=== PATIENT | female | born 1950 | race Caucasian/White ===

== ENCOUNTER → 2016-12-19 | Outpatient (CLI) | payer MEDICARE, MEDICAID ==
[~2016-12-19] MED LIST: AC500T; ACET-819 PO; ACET650S15 PR; ACHD5005 PO; ALBU17AE3 IH; AMIT25TA9 PO; AMLO10TA PO; AMLO10TA2 PO; AMLO10TA82 PO; ASP81TEC PO; ATOR20TA66 PO; ATOR40TA PO; ATOR80TA PO; Amlodipine Besylate PO; CALC500T7 PO; CARV12.5 PO; CARV12.52 PO; CHLO25TA2 PO; CLN.1T PO; CLON-378 PO; CLON0.1T PO; CLON0.3T4 PO; CYCL10TA9; CYCL10TA9 PO; DCS100C PO; DESV50TA PO; DILT240C90 PO; DIPH25TA82 PO; DOXA8TAB73 PO; DULA1.5P2 SQ; DXZS4T PO; FAMO-106 PO; FAMO20TA13 PO; FRSM40T PO; FURO40TA4; FURO80TA3 PO; GEMF600T3 PO; GLUCOSAMIDE; HCT25T PO; HDRL25T PO; HUM100VI15; HYDR-3923 PO; HYDR-3924 PO; HYDR25TA4 PO; HYDR50TA3 PO; IBP800T; IBP800T PO; INSASP10V SC; INSASP10V SQ; INSU100I14 SQ; INSU100I16 SQ; INSU100I23 SQ; INSU100I32 SQ; INSU100V16 SC; INSU100V16 SQ; INSU100V5 SC; INSU100V5 SQ; INSULIN ISOPHANE; IPRA3AMP19 IH; ISM60TCR PO; KCL10CCR; KCL20TCR; LEVE1U SQ; LEVO25TA5 PO; LISI-552 PO; LISI10TA2 PO; LISI40TA PO; LORA0.5T PO; LORA1TAB PO; LSNP10T PO; LURA60TA2 PO; LURA80TA PO; LVF500T PO; LVT.025T PO; MAGN400T6 PO; MENT118G TP; METF-380 PO; METF-473 PO; METF500T8 PO; METO-272 PO; METO-352 PO; METO10TA3 PO; METO5TAB2 PO; MGX400T PO; MTC10T PO; MULT1CAP27 PO; Metoprolol Succinate PO; NAPR220T76 PO; NIAC250C2 PO; NIFE60TA74; NITR100C3 PO; OMEG-12 PO; ONDN4T PO; OSTEO BI-FLEX1 EACH PO; PANT20TA3 PO; PANT40TA PO; PANT40TA3 PO; PHENERGAN 25 MG/ML IM; PNT40TEC PO; POTA10CA43 PO; POTA10CA68 PO; POTA10TA10 PO; POTA10TA36 PO; POTA10TA86 PO; POTA20TA15 PO; PRAV40TA PO; RNT150T PO; ROSU5TAB PO; SCR1T1 PO; SIMV40TA4 PO; SPRN25T PO; SUCR1TAB PO; TORS20TA3 PO; TRAM100T2 PO; TRAM50TA2 PO; VITA1CAP59; VITA1TAB98 PO; [UNRECOGNIZED DRUG - CODE] PO; [UNRECOGNIZED DRUG - OTHER]; [UNRECOGNIZED DRUG - OTHER]
--- NOTE | 2016-12-20 14:20 | ECHOCARDIOGRAPHY REPORT ---
DATE OF SERVICE: 12/19/2016 ECHOCARDIOGRAM ORDERING PHYSICIAN: MARIANO Boucher PRIMARY PHYSICIAN: Dr. Walsh. OTHER PHYSICIAN: Dr. Mendez. CLINICAL DIAGNOSES: Coronary artery disease, hypertension, aortic stenosis. MEASUREMENTS: Aortic root 2.2. Left atrium 3.8. LV diameter diastolic 5.1. IVS thickness, diastolic 1.4. LVPW thickness, diastolic 1.3. DESCRIPTION: Two-dimensional echocardiography shows mild concentric left ventricular hypertrophy. Left ventricular ejection fraction appears to be normal. The study is technically difficult and is not suitable for wall motion analysis. Left ventricular ejection fraction is estimated to be 60% to 65%. There appears to be moderate mitral annular calcification. Mitral and tricuspid valve leaflets seem to have good leaflet excursion. Aortic valve leaflet structure is not very well visualized. Doppler imaging shows mild mitral and tricuspid regurgitation. Peak pressure gradient across the mitral valve is approximately 8 mmHg with a mean gradient of approximately 2 mmHg. There is moderate sclerosis and calcification of the aortic valve leaflets. Peak pressure gradient across the aortic valve is approximately 33 mmHg with a mean gradient of approximately 21 mmHg. Aortic valve area is calculated to be approximately 2 sq cm. Mitral valve area is calculated to be approximately 3 sq cm. Pulmonary artery systolic pressure is estimated at approximately 30 to 35 mmHg. CONCLUSIONS: 1. Normal global left ventricular systolic function with an ejection fraction approximately 60% to 65%. 2. Mild concentric left ventricular hypertrophy. 3. Mitral annular calcification without significant mitral stenosis. 4. Aortic valve sclerosis with mild aortic stenosis and a valve area of approximately 2 sq cm. 5. Mild mitral and tricuspid regurgitation. 6. Pulmonary artery systolic pressure is estimated to be 30 to 35 mmHg. Job ID: [id number] DocumentID: [id number] Dictated Date: 12/20/2016 11:25:13 Vacuum Closing Machine Operator Date: 12/20/2016 12:46:06 Dictated By: MARY ALICE MENDEZ MD, MA, FACP, FACC,
== END ==
LOC: CARD 14:48
PROVIDERS: ATTEND Nurse Practitioner Family
DX: I25.10 Atherosclerotic heart disease of native coronary artery without angina pectoris (principal); I65.23 Occlusion and stenosis of bilateral carotid arteries; I10 Essential (primary) hypertension; I35.0 Nonrheumatic aortic (valve) stenosis; I51.7 Cardiomegaly
CPT/HCPCS: 93306

== ENCOUNTER → 2017-01-15 | Outpatient (CLI) | payer MEDICARE, MEDICAID ==
--- NOTE | 2017-01-15 15:48 | Diagnostic Imaging Report ---
Bilateral renal ultrasound. INDICATION: Hypertension. Chronic renal disease and diabetes. FINDINGS: The right kidney is 10.3 cm and the left kidney is 13.1 cm in length. There is no hydronephrosis or focal lesion. Increased echogenicity of the renal cortex is seen with thinning particularly prominent in the right kidney. The urinary bladder is not seen, probably empty. IMPRESSION: No hydronephrosis. Dictated by: Dictated on workstation # [id number]
== END ==
LOC: RAD 13:53
PROVIDERS: ATTEND Internal Medicine Nephrology
DX: I12.9 Hypertensive chronic kidney disease with stage 1 through stage 4 chronic kidney disease, or unspecified chronic kidney disease (principal); N18.4 Chronic kidney disease, stage 4 (severe); E11.29 Type 2 diabetes mellitus with other diabetic kidney complication; D63.1 Anemia in chronic kidney disease
CPT/HCPCS: 76770

== ENCOUNTER 2017-02-03 07:37 | Inpatient (IN) | payer MEDICARE, MEDICAID ==
[~2017-02-03] VITALS: Ht 167.6 cm; Wt 112.3 kg
[2017-02-03] VITALS (18 sets, daily range): BP systolic 101–164; BP diastolic 56–102
[~2017-02-03 07:37] MED LIST changes: -METO-272 PO; +METO-370 PO
[2017-02-03] MEDS ORDERED: RT-ALBUTEROL/IPRATROPIUM 3 ML (DUONEB) VIAL INH ONE (07:45)
[2017-02-03 08:01] LABS: BASOPHILS # (AUTO) 0.1 10^3/uL (0.0-0.1); BASOPHILS % (AUTO) 1 % (0-10); EOSINOPHILS # (AUTO) 0.3 10^3/uL (0.0-0.3); EOSINOPHILS % (AUTO) 3 % (0-10); LYMPHOCYTES # (AUTO) 1.6 X 10^3 (1.0-4.0); LYMPHOCYTES % (AUTO) 16 % (12-44); MEAN CORPUSCULAR HEMOGLOBIN 27 PG (25-34); MEAN CORPUSCULAR HGB CONC 30 G/DL (32-36); MEAN CORPUSCULAR VOLUME 90 FL (80-99); MEAN PLATELET VOLUME 10.5 FL (7.4-10.4); MONOCYTES # (AUTO) 0.8 X 10^3 (0.0-1.0); MONOCYTES % (AUTO) 8 % (0-12); NEUTROPHILS # (AUTO) 7.4 X 10^3 (1.8-7.8); NEUTROPHILS % (AUTO) 73 % (42-75); PLATELET COUNT 292 10^3/uL (130-400); RED BLOOD COUNT 2.52 10^6/uL (4.35-5.85); RED CELL DISTRIBUTION WIDTH 14.6 % (10.0-14.5); WHITE BLOOD COUNT 10.2 10^3/uL (4.3-11.0)
[2017-02-03 08:21] LABS: ALANINE AMINOTRANSFERASE 20 U/L (0-55); ALBUMIN 3.2 GM/DL (3.2-4.5); ANION GAP 7 MMOL/L (5-14); ASPARTATE AMINO TRANSFERASE 16 U/L (5-34); BILIRUBIN,TOTAL 0.4 MG/DL (0.1-1.0); BLOOD UREA NITROGEN 49 MG/DL (7-18); BUN/CREATININE RATIO 13; CALCIUM 8.6 MG/DL (8.5-10.1); CARBON DIOXIDE 22 MMOL/L (21-32); CHLORIDE 111 MMOL/L (98-107); CREATININE SERUM 3.83 MG/DL (0.60-1.30); GFR ESTIMATED 12; MAGNESIUM 2.2 MG/DL (1.8-2.4); POTASSIUM 5.2 MMOL/L (3.6-5.0); SODIUM 140 MMOL/L (135-145); TOTAL PROTEIN 6.4 GM/DL (6.4-8.2); hs C REACTIVE PROTEIN 3.95 MG/DL (0.00-0.50)
[2017-02-03 08:26] LABS: GLUCOSE 58 MG/DL (70-105)
[2017-02-03 08:27] LABS: TROPONIN I < 0.30 NG/ML (<0.30)
--- NOTE | 2017-02-03 08:27 | Diagnostic Imaging Report ---
INDICATION: Shortness of breath. Comparison made with prior examination from 07/08/16. FINDINGS: There is cardiomegaly. There is some venous congestion. There is some discoid atelectasis and/or pneumonitis in the left lung base. There is no pneumothorax. The mediastinum is unremarkable. IMPRESSION: Left basilar discoid atelectasis and/or pneumonitis and a left pleural effusion. Cardiomegaly and some central pulmonary venous congestion. Dictated by: Dictated on workstation # [id number]
[2017-02-03] MEDS ORDERED: DEXTROSE 50% 50 ML (IMS) SYR IV ONE (08:30)
--- NOTE | 2017-02-03 08:43 | ED Respiratory ---
General Chief Complaint: Respiratory Problems Stated Complaint: SOA Nursing Triage Note: c/o soa. Pt apparently has had a significant weight gain since Saturday with increasing edema. Source: patient, EMS Exam Limitations: no limitations History of Present Illness Time seen by provider: 07:38 Initial Comments Here with report of daily weight gain and increasing shortness of breath. Apparently patient's oxygen saturation was decreased this morning at the [facility] despite O2. Patient was noted to have hemoglobin of 6.8 at the [facility]. Also with report of increased edema despite additional Lasix. Patient arrives on CPAP from EMS. History limited to [facility] and EMS report due to patient's medical condition and CPAP use. Timing/Duration: yesterday, getting worse Severity: moderate, severe Prior Episodes/Possible Cause: occasional episodes Modifying Factors: Improves With Oxygen Associated Symptoms: No chest pain/soreness, No cough, No fever/chills, shortness of breath, wheezing Allergies and Home Medications Allergies Coded Allergies: No Known Drug Allergies (Verified , 03/22/13) Home Medications Acetaminophen 500 Mg Tablet, 1,000 MG PO Q8H PRN for PAIN, (Reported) TAKES 2 (500MG) TABLETS NEEDED FOR PAIN Amlodipine Besylate 10 Mg Tablet, 10 MG PO DAILY, (Reported) Aspirin 81 Mg Tabec, 81 MG PO DAILY, (Reported) Calcium Carbonate 200 Mg Tab.chew, 200 MG PO Q8H PRN for INDIGESTION, (Reported) Clonidine HCl 0.1 Mg Tablet, 0.1 MG PO TID, #90 Ref 1 Prescribed by: AMY GARCIA on 06/29/16 1052 Desvenlafaxine Succinate 50 Mg Tab.sr.24h, 50 MG PO DAILY, (Reported) Diltiazem HCl 240 Mg Cap.er.24h, 240 MG PO DAILY, #30 Ref 1 Prescribed by: AMY GARCIA on 06/29/16 1052 Docusate Sodium 100 Mg Cap, 100 MG PO BID, (Reported) Doxazosin Mesylate 8 Mg Tablet, 8 MG PO Q12H, (Reported) 0600, 1800 Dulaglutide 1.5 Mg/0.5 Ml Pen.injctr, 1.5 MG SQ Mo, (Reported) Hydralazine HCl 50 Mg Tablet, 50 MG PO TID, (Reported) Hydrochlorothiazide 25 Mg Tablet, 25 MG PO DAILY, (Reported) Insulin Aspart 300 Units/3 Ml Solution, 15 UNITS SQ TIDAC, (Reported) Insulin Degludec 100 Unit/1 Ml Insuln.pen, 20 UNITS SQ HS, (Reported) Lisinopril 20 Mg Tablet, 20 MG PO DAILY, (Reported) Lorazepam 1 Mg Tablet, 1 MG PO Q6H PRN for ANXIETY, (Reported) Lurasidone HCl 60 Mg Tablet, 60 MG PO HS, (Reported) Magnesium Oxide 400 Mg Tablet, 400 MG PO BID, (Reported) Menthol 118 Ml Gel..ml., TP Q6H PRN for PAIN, (Reported) APPLY TO LOWER BACK Pantoprazole Sodium 20 Mg Tablet.dr, 20 MG PO DAILY, (Reported) Potassium Chloride 10 Meq Capsule.er, 20 MEQ PO BID, (Reported) TAKES 2 (10 MEQ) CAPSULES Torsemide 20 Mg Tablet, 40 MG PO DAILY, (Reported) TAKES 2 (20MG) TABLETS Constitutional: see HPI, No chills, No fever Respiratory: short of breath, wheezing Cardiovascular: No chest pain, edema Gastrointestinal: No nausea, No vomiting Genitourinary: no symptoms reported Other Unable to complete review of systems due to her underlying medical condition. Past Ghtrqdm-Nlnjzr-Dedfjc Hx Patient Social History Alcohol Use: Denies Use Recreational Drug Use: No Smoking Status: Unknown if Ever Smoked Type Used: Cigarettes Former Smoker/When Quit: Jun 03, 2010 Recent Foreign Travel: No Contact w/Someone Who Travel: No Recent Infectious Disease Expo: No Recent Hopitalizations: Yes (bladder tie up in 74 et 75, partial hyst in 75, breast et lymph nodes in 1) Immunizations Up To Date Tetanus Booster (TDap): Less than 5yrs Date of Pneumonia Vaccine: Apr 28, 2012 Date of Influenza Vaccine: Apr 28, 2016 Seasonal Allergies Seasonal Allergies: No Surgeries HX Surgeries: Yes (COLONOSCOPY,) Surgeries: Abdominal, Bladder Surgery, Breast, Cardiac, Gallbladder, Hysterectomy, Oophorectomy Respiratory Hx Respiratory Disorders: Yes Respiratory Disorders: Asthma Cardiovascular Hx Cardiac Disorders: Yes (CHF) Cardiac Disorders: Coronary Artery Disease, High Cholesterol, Hypertension, Syncope Neurological Hx Neurological Disorders: Yes (VASCULAR DEMENTIA) Neurological Disorders: Dementia, Neuropathy Reproductive System Hx Reproductive Disorders: No Sexually Transmitted Disease: Yes (Gonococcal infection hx) HIV/AIDS: No Female Reproductive Disorders: Denies Genitourinary Hx Genitourinary Disorders: Yes Genitourinary Disorders: Renal Failure, UTI-Chronic Gastrointestinal Hx Gastrointestinal Disorders: Yes (GASTROPARESIS) Gastrointestinal Disorders: Gastroesophageal Reflux, Diverticulosis, Polyps, Hiatal Hernia, Gall Bladder Disease Musculoskeletal Hx Musculoskeletal Disorders: Yes Musculoskeletal Disorders: Arthritis, Chronic Back Pain Endocrine Hx Endocrine Disorders: Yes Endocrine Disorders: Diabetes, Insulin dep, Hypothyroidsim, Pituitary Disease HEENT HX ENT Disorders: Yes (RETINAL DETATCHMENT, NO VISION RT EYE) Loss of Vision: Right Hearing Impairment: Denies Cancer Hx Cancer: Yes (RIGHT MASTECTOMY, BRAIN TUMOR REMOVED ) Cancer: Breast, Cervical, Uterine Psychosocial Hx Psychiatric Problems: Yes Behavioral Health Disorders: Eating Disorder, Anxiety, Depression Integumentary HX Skin/Integumentary Disorder: No Blood Transfusions Hx Blood Disorders: Yes (LEUKOCYTOSIS) Adverse Reaction to a Blood Tr: No Family Medical History Significant Family History: Heart Disease, Diabetes, Hypertension Family Medial History: Cancer 09 BROTHER, Onset:50's - 60 Family history: Asthma 03 FATHER, Onset:50's - 60 Family history: Diabetes mellitus 03 MOTHER, Onset:40's - 50 09 BROTHER, Onset:60 years & older 09 BROTHER, Onset:40's - 50 09 SISTER, Onset:50's - 60 09 SISTER, Onset:40's - 50 Family history: Hypertension 03 MOTHER, Onset:30's - 40 09 SISTER, Onset:40's - 50 09 SISTER, Onset:50's - 60 Heart disease 03 FATHER, Onset:60 years & older History of - respiratory disease 09 BROTHER, Onset:60 years & older Stroke 03 MOTHER, Onset:40's - 50 Physical Exam Vital Signs Vital Sign - Last 12Hours 02/03/17 02/03/17 07:54 08:02 Temp 96.8 Pulse 66 Resp 21 B/P (MAP) 155/80 Pulse Ox 97 O2 Flow Rate 40.00 Capillary Refill : Less Than 3 Seconds General Appearance: WD/WN, no apparent distress HEENT: PERRL/EOMI, normal ENT inspection Neck: full range of motion, supple Respiratory: decreased breath sounds, crackles, wheezing, expiration Cardiovascular: regular rate, rhythm, no murmur Gastrointestinal: non tender, soft Extremities: non-tender, normal inspection, pedal edema (3+ up to the level of the knee bilaterally.) Neurologic/Psychiatric: alert, oriented x 3 Skin: normal color, warm/dry Progress/Results/Core Measures Results/Orders Lab Results Laboratory Tests Test 02/03/17 07:50 02/03/17 08:40 Range/Units White Blood Count 10.2 4.3-11.0 10^3/uL Red Blood Count 2.52 L 4.35-5.85 10^6/uL Hemoglobin 6.7 *L 11.5-16.0 G/DL Hematocrit 23 L 35-52 % Mean Corpuscular Volume 90 80-99 FL Mean Corpuscular Hemoglobin 27 25-34 PG Mean Corpuscular Hemoglobin Concent 30 L 32-36 G/DL Red Cell Distribution Width 14.6 H 10.0-14.5 % Platelet Count 292 130-400 10^3/uL Mean Platelet Volume 10.5 H 7.4-10.4 FL Neutrophils (%) (Auto) 73 42-75 % Lymphocytes (%) (Auto) 16 12-44 % Monocytes (%) (Auto) 8 0-12 % Eosinophils (%) (Auto) 3 0-10 % Basophils (%) (Auto) 1 0-10 % Neutrophils # (Auto) 7.4 1.8-7.8 X 10^3 Lymphocytes # (Auto) 1.6 1.0-4.0 X 10^3 Monocytes # (Auto) 0.8 0.0-1.0 X 10^3 Eosinophils # (Auto) 0.3 0.0-0.3 10^3/uL Basophils # (Auto) 0.1 0.0-0.1 10^3/uL Sodium Level 140 135-145 MMOL/L Potassium Level 5.2 H 3.6-5.0 MMOL/L Chloride Level 111 H 98-107 MMOL/L Carbon Dioxide Level 22 21-32 MMOL/L Anion Gap 7 5-14 MMOL/L Blood Urea Nitrogen 49 H 7-18 MG/DL Creatinine 3.83 H 0.60-1.30 MG/DL Estimat Glomerular Filtration Rate 12 BUN/Creatinine Ratio 13 Glucose Level 58 *L 70-105 MG/DL Calcium Level 8.6 8.5-10.1 MG/DL Magnesium Level 2.2 1.8-2.4 MG/DL Total Bilirubin 0.4 0.1-1.0 MG/DL Aspartate Amino Transf (AST/SGOT) 16 5-34 U/L Alanine Aminotransferase (ALT/SGPT) 20 0-55 U/L Alkaline Phosphatase 75 40-136 U/L Troponin I < 0.30 <0.30 NG/ML C-Reactive Protein High Sensitivity 3.95 H 0.00-0.50 MG/DL B-Type Natriuretic Peptide 241.1 H <100.0 PG/ML Total Protein 6.4 6.4-8.2 GM/DL Albumin 3.2 3.2-4.5 GM/DL Urine Color YELLOW Urine Clarity CLEAR Urine pH 6 5-9 Urine Specific Platinum 1.010 L 1.016-1.022 Urine Protein 4+ NEGATIVE Urine Glucose (UA) NEGATIVE NEGATIVE Urine Ketones NEGATIVE NEGATIVE Urine Nitrite NEGATIVE NEGATIVE Urine Bilirubin NEGATIVE NEGATIVE Urine Urobilinogen NORMAL NORMAL MG/DL Urine Leukocyte Esterase NEGATIVE NEGATIVE Urine RBC (Auto) NEGATIVE NEGATIVE Urine RBC 0-2 /HPF Urine WBC 0-2 /HPF Urine Squamous Epithelial Cells NONE /HPF Urine Crystals NONE /LPF Urine Bacteria NEGATIVE /HPF Urine Casts NONE /LPF Urine Mucus NEGATIVE /LPF Urine Culture Indicated NO My Orders Orders - SADIE BARRAZA MD Albuterol/Ipra Inhalation Soln (Duoneb I (02/03/17 07:45) Chest 1 View, Ap/Pa Only (02/03/17 07:44) BNP (02/03/17 07:44) Cbc With Automated Diff (02/03/17 07:44) Comprehensive Metabolic Panel (02/03/17 07:44) Hs C Reactive Protein (02/03/17 07:44) Magnesium (02/03/17 07:44) Troponin I (02/03/17 07:44) Ua Culture If Indicated (02/03/17 07:44) Red Cells Leukocytes Reduced (02/03/17 07:44) Ekg Tracing (02/03/17 07:44) Catheter(Urinary) Insert & Ass 03,15 (02/03/17 07:44) O2 (02/03/17 07:44) Monitor-Rhythm Ecg Trace Only (02/03/17 07:44) Svn Sm Volume Nebulizer Rt-Rfs (02/03/17 07:44) Type And Screen (02/03/17 07:44) D50w (Emergency) Syringe (Dextrose 50% 5 (02/03/17 08:30) Medications Given in ED Current Medications Medications Dose Ordered Sig/Ida Route Start Time Stop Time Status Last Admin Dose Admin Albuterol/ Ipratropium 3 ml ONCE ONCE INH 02/03/17 07:45 02/03/17 07:50 DC 02/03/17 07:53 3 ML Dextrose 50 ml ONCE ONCE IV 02/03/17 08:30 02/03/17 08:31 DC 02/03/17 08:35 50 ML Vital Signs/I&O Vital Sign - Last 12Hours 02/03/17 02/03/17 07:54 08:02 Temp 96.8 Pulse 66 67 Resp 21 18 B/P (MAP) 155/80 Pulse Ox 97 O2 Flow Rate 40.00 Blood Pressure Mean: 105 Progress Note : Progress Note Seen and evaluated. IV initiated. Labs, chest x-ray and BiPAP initiated. DuoNeb done. Type and cross for 2 units due to report of low hemoglobin. Smith catheter placed due to immobility related to BiPAP and respiratory distress. Monitor patient. Responding well to BiPAP. Hemoglobin noted to be low. 1 unit of packed red cells initiated. Blood sugar 58. D50 1 amp IV given. 0955: I did discuss the case with Dr. Jordan. She accepts patient for admission, inpatient status. Patient is DO NOT RESUSCITATE. We will give Lasix 40 mg IV after 1 unit of packed red cells complete which will be finished in the ICU. ECG Initial ECG Impression Date: Feb 03, 2017 Initial ECG Impression Time: 07:56 Initial ECG Rate: 69 Initial ECG Rhythm: Normal Sinus Comment Sinus rhythm with first degree AV block. No evidence of ST elevation [place]. Similar to previous of 07/08/16. Interpreted by me. Diagnostic Imaging Diagonstic Imaging: Xray Plain Films/CT/US/NM/MRI: chest Comments VIA [facility], [facility]. [place], [place] NAME: KELLEY NASCIMENTO UGOBE REC#: [id number] PT STATUS: REG ER : 1950 PHYSICIAN: SADIE BARRAZA MD ADMIT DATE: 02/03/17/ER Draft Date of Exam:02/03/17 CHEST 1 VIEW, AP/PA ONLY INDICATION: Shortness of breath. Comparison made with prior examination from 07/08/16. FINDINGS: There is cardiomegaly. There is some venous congestion. There is some discoid atelectasis and/or pneumonitis in the left lung base. There is no pneumothorax. The mediastinum is unremarkable. IMPRESSION: Left basilar discoid atelectasis and/or pneumonitis and a left pleural effusion. Cardiomegaly and some central pulmonary venous congestion. Dictated on workstation # [id number] Dict: 02/03/1714 Trans: 02/03/17 0826 [facility] [id number] Interpreted by: KRYS RAMIREZ Electronically signed by: Reviewed: Reviewed by Me Departure Communication Time/Spoke to Admitting Phy: 09:55 Impression Impression: Primary Impression: Anemia Qualified Codes: D64.9 - Anemia, unspecified Additional Impressions: Acute on chronic renal failure Qualified Codes: N17.9 - Acute kidney failure, unspecified; N18.9 - Chronic kidney disease, unspecified Acute heart failure Qualified Codes: I50.9 - Heart failure, unspecified Respiratory failure, acute Qualified Codes: J96.01 - Acute respiratory failure with hypoxia Disposition: ADMITTED INPATIENT Condition: Stable Decision to Admit Reason: Admit from ER (General) Decision to Admit/Date: Feb 03, 2017 Time/Decision to Admit Time: 09:55 Departure-Patient Inst. Referrals: ERICA THAO MD (PCP/Family) Primary Care Physician SADIE BARRAZA MD Feb 03, 2017 08:43
[2017-02-03 08:47] LABS: BILIRUBIN,URINE NEGATIVE (NEGATIVE); KETONES,URINE NEGATIVE (NEGATIVE); LEUKOCYTE ESTERASE ,URINE NEGATIVE (NEGATIVE); NITRITE,URINE NEGATIVE (NEGATIVE); PH,URINE 6 (5-9); PROTEIN,URINE 4+ (NEGATIVE); UROBILINOGEN,URINE NORMAL (NORMAL)
[2017-02-03 09:03] LABS: WBC,URINE 0-2 /HPF
[2017-02-03] MEDS ORDERED: FUROSEMIDE 40 MG/4 ML INJ (LASIX) IV NR (10:45)
[2017-02-03] MEDS ORDERED: CATHETER FLUSH 10 ML SYR IV PRN (11:00)
[2017-02-03] MEDS ORDERED: RT-ALBUTEROL/IPRATROPIUM 3 ML (DUONEB) VIAL INH PRN (12:00)
[2017-02-03] MEDS: inSUlin (REGULAR) HUMAN 1 UNIT/0.01 ML (CHARGE PER UNIT) SC SCH ×3 (12:50→21:15)
[2017-02-03] MEDS: RT-ALBUTEROL/IPRATROPIUM 3 ML (DUONEB) VIAL INH SCH ×3 (13:55→22:56)
[2017-02-03] MEDS ORDERED: NON-FORMULARY MEDICATION 1 EA EA (Doxazosin Mesylate 8 MG) PO SCH (14:45)
[2017-02-03] MEDS ORDERED: CALCIUM CARBONATE 500 MG (TUMS) TAB.CHEW PO PRN (14:45)
[2017-02-03] MEDS ORDERED: LORazepam 1 MG (ATIVAN) TAB PO PRN (14:45)
[2017-02-03] MEDS ORDERED: LURA20TA PO (14:54)
[2017-02-03] MEDS ORDERED: RISP0.5T3 PO (14:54)
--- NOTE | 2017-02-03 15:08 | History & Physicial (CHS) ---
HPI History of Present Illness: 67 yo female with multiple comorbidities sent from long term with increasing oxygen requirement and shortness of breath. She also has history of vascular dementia, with unknown to me baseline functioning and no one else present at time of my exam. She does answer questions briefly but appropriately and is alert. She admits to shortness of breath, denies cough or chest pain. She denies diarrhea, constipation, abdominal pain or blood in stools. No fever reported by nursing facility. Source: patient Exam Limitations: clinical condition, other (reported history of dementia) Date seen by provider: Feb 03, 2017 Time Seen by Provider: 11:10 Attending Physician Estrella Jordan MD PCP Melvin Walsh MD Consult Date of Admission Feb 03, 2017 at 10:00 am Home Medications Home Medications Reviewed patient Home Medication Reconciliation Form Allergies Coded Allergies: No Known Drug Allergies (Verified , 03/22/13) [id number] Hx Patient Social History Alcohol Use: Denies Use Recreational Drug Use: No Smoking Status: Former Smoker Former smoker/When Quit: Jun 03, 2010 Type Used: Cigarettes Recent Foreign Travel: No Contact w/other who traveled: No Recent Hopitalizations: No Recent Infectious Disease Expo: No Physical Abuse Screen: Yes Sexual Abuse: No Immunizations Up To Date Tetanus Booster (TDap): Less than 5yrs Date of Pneumonia Vaccine: Apr 28, 2012 Date of Influenza Vaccine: Apr 28, 2016 Past Medical History Past Medical History 1. Chest pain with repeated admisisons- troponins negative 2. CAD 3. HTN 4. DMII 5. CRI stage IV 6. UTI 7.Hypothyroidism 8. Hypokalemia 9.History of hypotensive episodes with syncope 10. HLP 12. Peripheral Neuropathy 13.Obesity 14. 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 Breast cancer SP Rt. mastectomy 16. Hiatal hernia 17. OA 18. Asthma 19. Benign Brain Tumor 20. Chronic Leukocytosis- unknown cause, possibly related to vomiting 21. 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 Sigmoid diverticulosis 23. Dementia 24. Heart failure with preserved ejection fraction 25. Chronic anemia of chronic disease Surgical Hx 1. Rt. Mastectomy 1990 with right breast reconstruction 1993. 2. Lt. breast reduction 1993 3. Bladder surgery 1973 and 1974 4. Hysterectomy 1974 5. BSO -2008 6. Craniotomy 1999 and 2000 for benign tumor. 7. Laparoscopic Cholecystectomy - [place] 8. Colonoscopy 06-15-[address] Seay with polypectomy x3 9. EGD with Dr. Staley 2012 with mild gastritis Family Medical History Significant Family History: Heart Disease, Diabetes, Hypertension Review of Systems (CHC) Constitutional: No fever Respiratory: No cough, short of breath Cardiovascular: No chest pain Gastrointestinal: No abdominal pain, No constipation, No diarrhea, No melena, No nausea, No vomiting Musculoskeletal: joint pain Reviewed Test Results Reviewed Test Results Lab Laboratory Tests Test 02/03/17 07:50 02/03/17 08:40 Range/Units White Blood Count 10.2 4.3-11.0 10^3/uL Red Blood Count 2.52 L 4.35-5.85 10^6/uL Hemoglobin 6.7 *L 11.5-16.0 G/DL Hematocrit 23 L 35-52 % Mean Corpuscular Volume 90 80-99 FL Mean Corpuscular Hemoglobin 27 25-34 PG Mean Corpuscular Hemoglobin Concent 30 L 32-36 G/DL Red Cell Distribution Width 14.6 H 10.0-14.5 % Platelet Count 292 130-400 10^3/uL Mean Platelet Volume 10.5 H 7.4-10.4 FL Neutrophils (%) (Auto) 73 42-75 % Lymphocytes (%) (Auto) 16 12-44 % Monocytes (%) (Auto) 8 0-12 % Eosinophils (%) (Auto) 3 0-10 % Basophils (%) (Auto) 1 0-10 % Neutrophils # (Auto) 7.4 1.8-7.8 X 10^3 Lymphocytes # (Auto) 1.6 1.0-4.0 X 10^3 Monocytes # (Auto) 0.8 0.0-1.0 X 10^3 Eosinophils # (Auto) 0.3 0.0-0.3 10^3/uL Basophils # (Auto) 0.1 0.0-0.1 10^3/uL Sodium Level 140 135-145 MMOL/L Potassium Level 5.2 H 3.6-5.0 MMOL/L Chloride Level 111 H 98-107 MMOL/L Carbon Dioxide Level 22 21-32 MMOL/L Anion Gap 7 5-14 MMOL/L Blood Urea Nitrogen 49 H 7-18 MG/DL Creatinine 3.83 H 0.60-1.30 MG/DL Estimat Glomerular Filtration Rate 12 BUN/Creatinine Ratio 13 Glucose Level 58 *L 70-105 MG/DL Calcium Level 8.6 8.5-10.1 MG/DL Magnesium Level 2.2 1.8-2.4 MG/DL Total Bilirubin 0.4 0.1-1.0 MG/DL Aspartate Amino Transf (AST/SGOT) 16 5-34 U/L Alanine Aminotransferase (ALT/SGPT) 20 0-55 U/L Alkaline Phosphatase 75 40-136 U/L Troponin I < 0.30 <0.30 NG/ML C-Reactive Protein High Sensitivity 3.95 H 0.00-0.50 MG/DL B-Type Natriuretic Peptide 241.1 H <100.0 PG/ML Total Protein 6.4 6.4-8.2 GM/DL Albumin 3.2 3.2-4.5 GM/DL Urine Color YELLOW Urine Clarity CLEAR Urine pH 6 5-9 Urine Specific [place] 1.010 L 1.016-1.022 Urine Protein 4+ NEGATIVE Urine Glucose (UA) NEGATIVE NEGATIVE Urine Ketones NEGATIVE NEGATIVE Urine Nitrite NEGATIVE NEGATIVE Urine Bilirubin NEGATIVE NEGATIVE Urine Urobilinogen NORMAL NORMAL MG/DL Urine Leukocyte Esterase NEGATIVE NEGATIVE Urine RBC (Auto) NEGATIVE NEGATIVE Urine RBC 0-2 /HPF Urine WBC 0-2 /HPF Urine Squamous Epithelial Cells NONE /HPF Urine Crystals NONE /LPF Urine Bacteria NEGATIVE /HPF Urine Casts NONE /LPF Urine Mucus NEGATIVE /LPF Urine Culture Indicated NO Radiology CXR 02/03/17: IMPRESSION: Left basilar discoid atelectasis and/or pneumonitis and a left pleural effusion. Cardiomegaly and some central pulmonary venous congestion. Physical Exam-(CHC) Physical Exam Vital Signs VS - Last 72 Hours, by Label 02/03/17 02/03/17 02/03/17 02/03/17 07:54 08:02 08:02 10:37 Temp 96.8 Pulse 66 67 66 Resp 21 18 19 B/P (MAP) 155/80 Pulse Ox 97 96 O2 Delivery NIV Bilevel O2 Flow Rate 40.00 40.00 02/03/17 02/03/17 02/03/17 02/03/17 10:45 11:00 11:15 11:40 Temp 97.5 Pulse 67 60 Resp 15 12 B/P (MAP) 126/59 126/59 Pulse Ox 99 98 98 O2 Delivery NIV Bilevel NIV Bilevel NIV Bilevel O2 Flow Rate 30.00 FiO2 40 30 02/03/17 02/03/17 02/03/17 02/03/17 12:00 12:48 12:59 13:55 Pulse 60 62 59 Resp 13 20 20 B/P (MAP) 130/63 Pulse Ox 99 99 97 O2 Delivery NIV Bilevel NIV Bilevel O2 Flow Rate 30.00 30.00 30.00 30.00 Capillary Refill : Less Than 3 Seconds General Appearance: moderate distress Respiratory: accessory muscle use, rhonchi, No wheezing Cardiovascular: regular rate, rhythm Gastrointestinal: normal bowel sounds, non tender, soft Neurologic/Psychiatric: alert Skin: normal color, warm/dry Assessment/Plan Assessment/Plan Admission Dx Acute on chronic anemia of chronic disease Acute on chronic renal insufficiency Acute on chronic diastolic congestive heart failure with preserved ejection fraction HTN DMII HLD Dementia with behavioral disturbance Plan Acute on chronic anemia of chronic disease -Hgb 6.7 on admission, has been trending down possibly due to worsening renal function, normocytic anemia suggestive of anemia of chronic disease with recent downward trend -Transfuse 1 unit PRBC and recheck, check hemoccult Acute on chronic renal insufficiency -Unclear etiology for acute worsening, possibly due to poor effective volume circulating given anemia noted above and fluid overload suggested as noted below -Monitor closely Acute on chronic diastolic congestive heart failure with preserved ejection fraction -Likely exacerbated by anemia, has had recent weight gain at [place] of 12-13 lbs in a week, did not improve with an extra dose of torsemide Saturday, requiring Bipap with 40% FiO2 on admission, weaned down to room air on bipap, will trial nasal cannula -IV lasix 40 mg after blood, will likely need continued diuresis, but will be difficult to balance with her renal function and poor effective circulating volume HTN -Resistant to multiple medications- on high dose doxazosin, clonidine, hydrochlorothiazide, amlodipine, cardizem and lisinopril at home -Hold lisinopril with acute worsening of renal function, monitor BP closely with restart of home meds DMII -Currently with hypoglycemia, start diabetic diet, hold home insulin and dulaglutide Dementia with behavioral disturbance -On multiple behavioral meds- resume home meds and monitor closely DVT ppx Hold pharmacologic ppx for now given marked anemia with concern for acute blood loss, if hemoccult negative, start enoxaparin Disposition Critically ill with multiple systems failure, will be difficult to balance renal function with fluid overload/hypoxia and CHF exacerbation. Patient is DNR. Diagnosis/Problems: Clinical Quality Measures DVT/VTE Risk/Contraindication: Risk Factor Score Per Nursin RFS Level Per Nursing on Admit: 4+=Very High Copy Copies To 1: SANJEEV Olmos BETHANY N MD Feb 03, 2017 3:08 pm
[2017-02-03] MEDS: doxAzosin 4 MG (CARDURA) TAB PO SCH ×2 (16:48→22:06)
[2017-02-03 18:37] LABS: MEAN PLATELET VOLUME 10.2 FL (7.4-10.4); RED BLOOD COUNT 2.64 10^6/uL (4.35-5.85); RED CELL DISTRIBUTION WIDTH 14.4 % (10.0-14.5); WHITE BLOOD COUNT 9.3 10^3/uL (4.3-11.0)
[2017-02-03] MEDS: NS IV 1000 ML 1,000 ML IV SCH (18:39)
[2017-02-03 18:49] LABS: CALCIUM 8.4 MG/DL (8.5-10.1); CREATININE SERUM 3.86 MG/DL (0.60-1.30)
[2017-02-03] MEDS ORDERED: SODI650T PO (18:59)
[2017-02-03] MEDS ORDERED: INSU100I14 SQ (18:59)
[2017-02-03] MEDS ORDERED: METO100T6 PO (18:59)
[2017-02-03] MEDS ORDERED: NON-FORMULARY MEDICATION 1 EA EA (Hydralazine HCl 50 MG) PO SCH (21:00)
[2017-02-03] MEDS ORDERED: NON-FORMULARY MEDICATION 1 EA EA (Risperidone 0.5 MG) PO SCH (21:00)
[2017-02-03] MEDS ORDERED: NON-FORMULARY MEDICATION 1 EA EA (Lurasidone HCl (Latuda) 20 MG) PO SCH (21:00)
[2017-02-03] MEDS: MAGNESIUM OXIDE (MAG-OX)400 MG TAB PO SCH (21:11)
[2017-02-03] MEDS: hydrALAZINE (APRESOLINE) 25 MG TAB PO SCH (21:11)
[2017-02-03] MEDS: DOCUSATE SODIUM 100 MG (COLACE) CAP PO SCH (21:11)
[2017-02-03] MEDS: cloNIDine 0.1 MG (CATAPRES) TAB PO SCH (21:12)
[2017-02-03] MEDS: risperiDONE 0.25 MG (RisperDAL) TAB PO SCH (21:12)
[2017-02-03] MEDS ORDERED: ACETAMINOPHEN 325 MG TABLET/CAPLET (TYLENOL) PO PRN (21:30)
[2017-02-04] VITALS (22 sets, daily range): BP systolic 127–170; BP diastolic 55–75
[2017-02-04] MEDS: RT-ALBUTEROL/IPRATROPIUM 3 ML (DUONEB) VIAL INH SCH ×5 (02:08→18:38)
[2017-02-04 03:54] LABS: BASOPHILS # (AUTO) 0.1 10^3/uL (0.0-0.1); BASOPHILS % (AUTO) 1 % (0-10); EOSINOPHILS # (AUTO) 0.3 10^3/uL (0.0-0.3); EOSINOPHILS % (AUTO) 4 % (0-10); LYMPHOCYTES # (AUTO) 1.6 X 10^3 (1.0-4.0); LYMPHOCYTES % (AUTO) 20 % (12-44); MEAN CORPUSCULAR HGB CONC 31 G/DL (32-36); MEAN CORPUSCULAR VOLUME 90 FL (80-99); MEAN PLATELET VOLUME 10.4 FL (7.4-10.4); MONOCYTES # (AUTO) 0.8 X 10^3 (0.0-1.0); MONOCYTES % (AUTO) 9 % (0-12); NEUTROPHILS # (AUTO) 5.5 X 10^3 (1.8-7.8); NEUTROPHILS % (AUTO) 66 % (42-75); PLATELET COUNT 250 10^3/uL (130-400); RED BLOOD COUNT 2.52 10^6/uL (4.35-5.85); RED CELL DISTRIBUTION WIDTH 14.4 % (10.0-14.5); WHITE BLOOD COUNT 8.2 10^3/uL (4.3-11.0)
[2017-02-04 04:11] LABS: MEAN CORPUSCULAR HEMOGLOBIN 28 PG (25-34)
[2017-02-04 04:35] LABS: BILIRUBIN,TOTAL 0.4 MG/DL (0.1-1.0); CALCIUM 8.4 MG/DL (8.5-10.1); CREATININE SERUM 3.88 MG/DL (0.60-1.30); POTASSIUM 4.5 MMOL/L (3.6-5.0); TOTAL PROTEIN 5.9 GM/DL (6.4-8.2)
[2017-02-04 04:51] LABS: MAGNESIUM 2.1 MG/DL (1.8-2.4); PHOSPHORUS 5.4 MG/DL (2.3-4.7)
[2017-02-04] MEDS: inSUlin (REGULAR) HUMAN 1 UNIT/0.01 ML (CHARGE PER UNIT) SC SCH ×3 (06:00→17:35)
[2017-02-04] MEDS ORDERED: VENlafaxine XR 75 MG (EFFEXOR XR) CAP PO SCH (07:00)
[2017-02-04] MEDS: hydrALAZINE (APRESOLINE) 25 MG TAB PO SCH ×2 (07:58→13:18)
[2017-02-04] MEDS: MAGNESIUM OXIDE (MAG-OX)400 MG TAB PO SCH (07:59)
[2017-02-04] MEDS: risperiDONE 0.25 MG (RisperDAL) TAB PO SCH (07:59)
[2017-02-04] MEDS: DOCUSATE SODIUM 100 MG (COLACE) CAP PO SCH (07:59)
[2017-02-04] MEDS: cloNIDine 0.1 MG (CATAPRES) TAB PO SCH ×2 (07:59→13:18)
[2017-02-04] MEDS: doxAzosin 4 MG (CARDURA) TAB PO SCH (08:00)
[2017-02-04] MEDS ORDERED: ASPIRIN E.C. 81 MG (ECOTRIN) TAB PO SCH (09:00)
[2017-02-04] MEDS ORDERED: FUROSEMIDE 40 MG/4 ML INJ (LASIX) IVP SCH (09:00)
[2017-02-04] MEDS ORDERED: HYDROCHLOROTHIAZIDE 25 MG (HCTZ) TAB PO SCH (09:00)
[2017-02-04] MEDS ORDERED: DILTIAZEM 240 MG (CARDIZEM CD) CAP PO SCH (09:00)
[2017-02-04] MEDS ORDERED: amLODIPine 10 MG (NORVASC) TAB PO SCH (09:00)
[2017-02-04] MEDS ORDERED: DESVENLAFAXINE SUCC 50 MG (PRISTIQ) TAB NON-FORMULARY PO SCH (09:00)
--- NOTE | 2017-02-04 09:13 | Diagnostic Imaging Report ---
INDICATION: Shortness of breath. EXAMINATION: Portable chest at 6:05 AM. FINDINGS: The heart size and pulmonary vascularity are normal. The lungs are clear. There are no effusions or pneumothoraces. IMPRESSION: Negative chest. Dictated by: Dictated on workstation # [id number]
[2017-02-04] MEDS: NS IV 1000 ML 1,000 ML IV SCH (11:08)
[2017-02-04] MEDS ORDERED: ACET-93 PO (11:30)
[2017-02-04] MEDS ORDERED: RISP1TAB3 PO (11:30)
[2017-02-04] MEDS ORDERED: DESV50TA18 PO (11:30)
[2017-02-04] MEDS ORDERED: MAGN500T PO (11:30)
[2017-02-04] MEDS ORDERED: METO-395 PO (11:30)
[2017-02-04] MEDS ORDERED: DILT240C PO (11:30)
[2017-02-04] MEDS ORDERED: MAGN400O7 PO (11:30)
--- NOTE | 2017-02-04 16:12 | Discharge Inst-Skilled Nursing ---
Discharge Inst-Skilled NF Patient Instructions Patient Problems: ACUTE ON CHRONIC SYSTOLIC HEART FAILURE EXACERBATION ACUTE ON CHRONIC RENAL FAILURE CHRONIC ANEMIA SECONDARY TO END STAGE RENAL FAILURE VASCULAR DEMENTIA Goal: PALLIATIVE CARE Patient Instructions: A HOSPICE QUALITY IMPROVEMENT MANAGER WILL CONTACT YOU TO ARRANGE A TIME TO MEET YOUR FAMILY. I HAVE NOT MADE ANY CHANGES TO YOUR MEDICATIONS DUE TO YOUR HIGH BLOOD PRESSURE. YOU MAY DECIDE TO CHANGE OR STOP SOME OF THEM WITH THE HOSPICE NURSE. Consult/Follow Up/Orders Follow up appt.: RAUDEL WILL VISIT YOU THIS WEEK. Skilled NF Admit to: [facility] I certify that SNF services are required to be given on an inpatient basis because of the above named patient's need for [facility] care on a continuing basis for the conditions(s) for which he/she was receiving inpatient hospital services prior to his/her transfer to the SNF. Group Home Facility Order: Nursing Services Discharge Diet: No Restrictions Daily Activity as Tolerated: Yes Discharge Medications New, Converted or Re-Newed RX: Other Continued Medications: Acetaminophen (Tylenol Extra Strength Arthrit) 500 Mg Tablet 1000 MG PO Q8H PRN for PAIN-MODERATE TAKES 2 (500MG) TABLETS NEEDED FOR PAIN Acetaminophen (Acetaminophen) 500 Mg Tablet 500 MG PO Q8H PRN for PAIN-MILD, TAB Amlodipine Besylate (Amlodipine Besylate) 10 Mg Tablet 10 MG PO DAILY Aspirin (Aspirin Ec 81 Mg) 81 Mg Tabec 81 MG PO DAILY Calcium Carbonate (Tums) 200 Mg Tab.chew 200 MG PO Q8H PRN for INDIGESTION Desvenlafaxine Succinate (Desvenlafaxine Succinate ER) 50 Mg Tab.er.24h 50 MG PO Q48H Diltiazem HCl (Diltiazem 24Hr ER) 240 Mg Cap.er.24h 240 MG PO DAILY Docusate Sodium (Colace) 100 Mg Cap 100 MG PO BID Doxazosin Mesylate (Doxazosin Mesylate) 8 Mg Tablet 8 MG PO 0600,1800 Dulaglutide (Trulicity) 1.5 Mg/0.5 Ml Pen.injctr 1.5 MG SQ Mo Hydralazine HCl (Hydralazine HCl) 50 Mg Tablet 50 MG PO TID Insulin Aspart (Novolog Flexpen) 300 Units/3 Ml Solution 25 UNITS SQ TIDAC Insulin Aspart (Novolog Flexpen) 300 Units/3 Ml Solution SQ SLIDING/SCALE, EA Sliding scale: Calculate blood glucose for amount to be given prior to breakfast and supper in addition to scheduled dose. Blood glucose minus 150 divided by 15 equals number of units to give. 150-165 1 unit 166-180 2 units 181-195 3 units Insulin Degludec (Tresiba Flextouch U-100) 100 Unit/1 Ml Insuln.pen 35 UNITS SQ HS Lorazepam (Lorazepam) 1 Mg Tablet 1 MG PO Q6H PRN for ANXIETY Magnesium Hydroxide (Milk of Magnesia) 400 Mg/5 Ml Oral.susp 30 ML PO DAILY PRN for CONSTIPATION-7TH LINE, ML Magnesium Oxide (Magnesium Oxide) 500 Mg Tablet 500 MG PO BID, TAB Metoprolol Succinate (Metoprolol Succinate) 100 Mg Tab.er.24h 100 MG PO DAILY Potassium Chloride (Klor-Con Sprinkle) 10 Meq Capsule.er 20 MEQ PO BID TAKES 2 (10 MEQ) CAPSULES Risperidone (Risperidone) 1 Mg Tablet 0.5 MG PO BID TAKES 1/2 OF A (1 MG) TABLET Sodium Bicarbonate (Sodium Bicarbonate) 650 Mg Tablet 1300 MG PO BID, TAB Torsemide (Torsemide) 20 Mg Tablet 20 MG PO DAILY Amy Best Feb 04, 2017 16:08 Copy Copies To 1: AMY ASH APRN, MD Feb 04, 2017 4:12 pm
--- NOTE | 2017-02-04 16:13 | Discharge Summary ---
Diagnosis/Chief Complaint Date of Admission Feb 03, 2017 at 10:00 am Date of Discharge January Admission Diagnosis Admission Diagnosis Acute on chronic anemia of chronic disease Acute on chronic renal insufficiency Acute on chronic diastolic congestive heart failure with preserved ejection fraction HTN DMII HLD Dementia with behavioral disturbance Discharge Diagnosis Acute on chronic anemia of chronic disease -Hgb 6.7 on admission, has been trending down possibly due to worsening renal function, normocytic anemia suggestive of anemia of chronic disease with recent downward trend -Transfuse 1 unit PRBC and recheck, check hemoccult Acute on chronic renal insufficiency -Unclear etiology for acute worsening, possibly due to poor effective volume circulating given anemia noted above and fluid overload suggested as noted below -Monitor closely Acute on chronic diastolic congestive heart failure with preserved ejection fraction -Likely exacerbated by anemia, has had recent weight gain at [place] of 12-13 lbs in a week, did not improve with an extra dose of torsemide Saturday, requiring Bipap with 40% FiO2 on admission, weaned down to room air on bipap, will trial nasal cannula -IV lasix 40 mg after blood, will likely need continued diuresis, but will be difficult to balance with her renal function and poor effective circulating volume HTN -Resistant to multiple medications- on high dose doxazosin, clonidine, hydrochlorothiazide, amlodipine, cardizem and lisinopril at home -Hold lisinopril with acute worsening of renal function, monitor BP closely with restart of home meds DMII -Currently with hypoglycemia, start diabetic diet, hold home insulin and dulaglutide Dementia with behavioral disturbance -On multiple behavioral meds- resume home meds and monitor closely On day of discharge, I spoke with patient's sons and siblings. Discussed with them her dire condition and the difficulty of fluid balance given her anemia, CKD, and CHF. Decision was made for her to go back to the retirement with hospice. The family chose [facility] for her care. I sought and answered all questions related to laverne situation. Ivelisse was not part of the discussion as she was not able to fully comprehend what we were saying. Chief Complaint/HPI Chief Complaint/HPI 67 yo female with multiple comorbidities sent from retirement with increasing oxygen requirement and shortness of breath. She also has history of vascular dementia, with unknown to me baseline functioning and no one else present at time of my exam. She does answer questions briefly but appropriately and is alert. She admits to shortness of breath, denies cough or chest pain. She denies diarrhea, constipation, abdominal pain or blood in stools. No fever reported by nursing facility. Discharge Summary-Simple/Stand Consultations Discharge Physical Examination Allergies: Coded Allergies: No Known Drug Allergies (Verified , 03/22/13) Vitals & I&Os Vital Sign - Last 12Hours Date Time Temp Pulse Resp B/P (MAP) Pulse Ox O2 Delivery O2 Flow Rate FiO2 02/04/17 14:46 98 Nasal Cannula 3.00 02/04/17 13:00 62 02/04/17 06:37 15 02/04/17 06:00 170/74 02/04/17 04:00 99.2 02/04/17 04:00 30 Intake and Output 02/04/17 00:00 Intake Total 900 ml Output Total 2175 ml Balance -1275 ml Hospital Course See final discharge diagnosis. Radiology Reviewed CXR 02/03/17: IMPRESSION: Left basilar discoid atelectasis and/or pneumonitis and a left pleural effusion. Cardiomegaly and some central pulmonary venous congestion. Discharge Instructions to patient/family Please see electonic discharge instructions given to patient. Discharge Medications Reviewed and agree with Discharge Medication list on patient's Discharge Instruction sheet Clinical Quality Measures DVT/VTE Risk/Contraindication: Risk Factor Score Per Nursin RFS Level Per Nursing on Admit: 4+=Very High Copy Copies To 1: AMY ASH APRN, MD Feb 04, 2017 16:13
--- OUTSIDE RECORDS SUMMARY | 2017-02-05 10:50 | XMS REPORT ---
Author ERICA Villatoro [facility] eClinicalWorks Address Unknown Phone Unavailable Care Team Providers Care Warehouse Distribution Associate Name Role Phone ERICA THAO CP Unavailable Allergies No Known Allergies Problems Problem Type Condition ICD-9 Code Onset Dates Condition Status Problem Other chronic pain 338.29 Active Problem Other specified disease of nail 703.8 Active Problem Equinus deformity of foot, acquired 736.72 Active Problem Unspecified hereditary and idiopathic peripheral neuropathy 356.9 Active Problem Coronary atherosclerosis of unspecified type of vessel, [place] or graft 414.00 Active Problem Dermatophytosis of nail 110.1 Active Problem Congestive heart failure, unspecified 428.0 Active Problem Diabetes with renal manifestations, type II or unspecified type, not stated as uncontrolled 250.40 Active Problem Ingrowing nail 703.0 Active Problem Vascular dementia, uncomplicated 290.40 Active Problem Unspecified hypothyroidism 244.9 Active Problem Loss of weight 783.21 Active Problem Persistent vomiting 536.2 Active Problem Abdominal pain, left lower quadrant 789.04 Active Problem Other nonspecific findings on examination of blood 790.99 Active Problem Diabetes 250.00 Active Problem Diabetes mellitus without mention of complication, type II or unspecified type, uncontrolled 250.02 Active Problem Edema 782.3 Active Problem Family history, Colonic polyps V18.51 Active Problem Obsessive-compulsive disorders 300.3 Active Problem Chest pain, unspecified 786.50 Active Problem Personal history of malignant neoplasm of breast V10.3 Active Problem Major depressive disorder, single episode, severe, specified as with psychotic behavior 296.24 Active Problem Chronic kidney disease, Stage III (moderate) 585.3 Active Problem PPV23 (PNEUMOVAX) DX V03.82 Active Problem Acute bronchitis 466.0 Active Problem Dementia in conditions classified elsewhere with behavioral disturbance 294.11 Active Problem Essential hypertension, malignant 401.0 Active Problem Nausea with vomiting 787.01 Active Medications Medication Code System Code Instructions Start Date End Date Status Dosage tramadol NDC 0 50 mg October 16, 2014 1 Tablet by Oral route 1 time per day qHS, for chronic pain TraMADol HCl ER NDC [address]-98 100 MG Orally Once a day PT [facility] Apr 01, 2015 1 tablet Results No Known Results Summary Purpose eClinicalWorks Submission
--- OUTSIDE RECORDS SUMMARY | 2017-02-05 10:50 | XMS REPORT ---
Author Author RAUDEL STAPLES [facility] eClinicalWorks Address Unknown Phone Unavailable Care Team Providers Care Component Prep Operator Name Role Phone RAUDEL STAPLES CP Unavailable Allergies No Known Allergies Problems Problem Type Condition Code Onset Dates Condition Status Problem Other chronic pain 338.29 Active Problem Other specified disease of nail 703.8 Active Problem Equinus deformity of foot, acquired 736.72 Active Problem Unspecified hereditary and idiopathic peripheral neuropathy 356.9 Active Problem Coronary atherosclerosis of unspecified type of vessel, [place] or graft 414.00 Active Problem Dermatophytosis of [...] Status Dosage tramadol NDC 0 50 mg PT [facility] October 16, 2014 1 Tablet by Oral route 1 time per day qHS, for chronic pain Results No Known Results Summary Purpose eClinicalWorks Submission
--- OUTSIDE RECORDS SUMMARY | 2017-02-05 10:50 | XMS REPORT ---
Author Author RAUDEL STAPLES [facility] eClinicalWorks Address Unknown Phone Unavailable Care Team Providers Care Corporate Licensed Broker Name Role Phone RAUDEL STAPLES CP Unavailable Allergies No Known Allergies Problems Problem Type Condition Code Onset Dates Condition Status Problem Vitamin deficiency E56.9 Active Problem Low back pain, unspecified back pain laterality, unspecified chronicity, with sciatica presence unspecified M54.5 Active Problem Constipation, unspecified constipation type K59.00 Active Problem Obsessive compulsive disorder F42 Active Problem Essential hypertension I10 Active Problem Chronic congestive heart failure, unspecified congestive heart failure type I50.9 Active Problem Peripheral polyneuropathy G62.9 Active Problem Generalized edema R60.1 Active Problem Mild episode of recurrent major depressive disorder F33.0 Active Problem Chronic kidney disease, unspecified stage N18.9 Active Problem Type 2 diabetes mellitus with complication E11.8 Active Problem Vascular dementia without behavioral disturbance F01.50 Active Problem Other chronic pain G89.29 Active Problem Mild acid reflux K21.9 Active Problem Shortness of breath R06.02 Active Problem Chronic kidney disease, stage 3 (moderate) N18.3 Active Problem Severe pain R52 Active Problem Mild pain R52 Active Problem Nausea and vomiting, unspecified intactability, vomiting of unspecified type R11.2 Active Medications Medication Code System Code Instructions Start Date End Date Status Dosage Scopolamine [facility] [address]-28 1 MG/3DAYS Transdermal every 3 days Apr 20, 2016 Jun 30, 2016 1 patch to skin Results No Known Results Summary Purpose eClinicalWorks Submission
--- OUTSIDE RECORDS SUMMARY | 2017-02-05 10:51 | XMS REPORT ---
Author Author RAUDEL STAPLES [facility] eClinicalWorks Address Unknown Phone Unavailable Care Team Providers Care Supervisory Lifeguard Name Role Phone RAUDEL STAPLES CP Unavailable Allergies No Known Allergies Problems Problem Type Condition Code Onset Dates Condition Status Problem Other chronic pain 338.29 Active Problem Other specified disease of nail 703.8 Active Problem Equinus deformity of foot, acquired 736.72 Active Problem Unspecified hereditary and idiopathic peripheral neuropathy 356.9 Active Problem Coronary atherosclerosis of unspecified type of vessel, [place] or graft 414.00 Active Problem Dermatophytosis of [...] Instructions Start Date End Date Status Dosage Morphine Sulfate [facility] [address]-97 15 MG Orally PT [facility] every 6 hrs Jul 07, 2015 1/2 tablet Results No Known Results Summary Purpose eClinicalWorks Submission
--- OUTSIDE RECORDS SUMMARY | 2017-02-05 10:51 | XMS REPORT ---
Author Author MERARI STAPLES Organization eClinicalWorks Address Unknown Phone Unavailable Care Team Providers Care Jute Bag Sewer Name Role Phone MERARI STAPLES CP Unavailable Allergies No Known Allergies [...] Date End Date Status Dosage Morphine Sulfate [facility] [address]-82 15 MG Orally ([facility]) every [address] Walsh to sign for Merari Jul 07, 2015 Apr 13, 2016 0.5 tablet as needed Results No Known Results Summary Purpose eClinicalWorks Submission
--- OUTSIDE RECORDS SUMMARY | 2017-02-05 10:52 | XMS REPORT ---
Author Author RAUDEL STAPLES Organization e[employer] Address Unknown Phone Unavailable Care Team Providers Care Watchguard Name Role Phone RAUDEL STAPLES CP Unavailable Allergies No Known Allergies Problems Problem Type Condition Code Onset Dates Condition Status Problem Other chronic pain 338.29 Active Problem Other specified disease of nail 703.8 Active Problem Equinus deformity of foot, acquired 736.72 Active Problem Unspecified hereditary and idiopathic peripheral neuropathy 356.9 Active Problem Coronary atherosclerosis of unspecified type of vessel, [place] or graft 414.00 Active Problem Dermatophytosis of [...] Problem Nausea with vomiting 787.01 Active Medications No Known Medications Results No Known Results Summary Purpose eClinicalWorks Submission
--- OUTSIDE RECORDS SUMMARY | 2017-02-05 10:52 | XMS REPORT ---
Author ERICA Villatoro [facility] eClinicalWorks Address Unknown Phone Unavailable Care Team Providers Care Manager Lpn Name Role Phone ERICA THAO CP Unavailable Allergies No Known Allergies Problems Problem Type Condition Code Onset Dates Condition Status Problem Other chronic pain 338.29 Active Problem Other specified disease of nail 703.8 Active Problem Equinus deformity of foot, acquired 736.72 Active Problem Unspecified hereditary and idiopathic peripheral neuropathy 356.9 Active Problem Coronary atherosclerosis of unspecified type of vessel, [place] or graft 414.00 Active Problem Dermatophytosis of [...] Instructions Start Date End Date Status Dosage TraMADol HCl ER [facility] [address]-96 100 MG Orally Once a day [facility] Jul 04, 2015 1 tablet Results No Known Results Summary Purpose eClinicalWorks Submission
--- OUTSIDE RECORDS SUMMARY | 2017-02-05 10:52 | XMS REPORT ---
Author Author RAUDEL STAPLES [facility] eClinicalWorks Address Unknown Phone Unavailable Care Team Providers Care Lacing Cutter Name Role Phone RAUDEL STAPLES CP Unavailable Allergies No Known Allergies Problems Problem Type Condition Code Onset Dates Condition Status Problem Other chronic pain 338.29 Active Problem Equinus deformity of foot, acquired 736.72 Active Problem Other specified disease of nail 703.8 Active Problem Unspecified hereditary and idiopathic peripheral neuropathy 356.9 Active Problem Dermatophytosis of nail 110.1 Active Problem Diabetes with renal manifestations, type II or unspecified type, not stated as uncontrolled 250.40 Active Problem Diabetes mellitus without mention of complication, type II or unspecified type, uncontrolled 250.02 Active Problem Other nonspecific findings on examination of blood 790.99 Active Problem Vascular dementia, uncomplicated 290.40 Active Problem Abdominal pain, left lower quadrant 789.04 Active Problem Family history, Colonic polyps V18.51 Active Problem Chronic kidney disease, Stage III (moderate) 585.3 Active Problem Edema 782.3 Active Problem Obsessive-compulsive disorders 300.3 Active Problem Chest pain, unspecified 786.50 Active Problem Vascular dementia without behavioral disturbance F01.50 Active Problem Type 2 diabetes mellitus with complication E11.8 Active Problem Major depressive disorder, single episode, severe, specified as with psychotic behavior 296.24 Active Problem Personal history of malignant neoplasm of breast V10.3 Active Problem Chronic kidney disease, stage 3 (moderate) N18.3 Active Problem PPV23 (PNEUMOVAX) DX V03.82 Active Problem Loss of weight 783.21 Active Problem Persistent vomiting 536.2 Active Problem Other chronic pain G89.29 Active Problem Diabetes 250.00 Active Problem Acute bronchitis 466.0 Active Problem Dementia in conditions classified elsewhere with behavioral disturbance 294.11 Active Problem Essential hypertension, malignant 401.0 Active Problem Nausea with vomiting 787.01 Active Problem Ingrowing nail 703.0 Active Problem Unspecified hypothyroidism 244.9 Active Problem Coronary atherosclerosis of unspecified type of vessel, [place] or graft 414.00 Active Problem Congestive heart failure, unspecified 428.0 Active Medications No Known Medications Results No Known Results Summary Purpose eClinicalWorks Submission
--- OUTSIDE RECORDS SUMMARY | 2017-02-05 10:52 | XMS REPORT ---
Author Author RAUDEL STAPLES [facility] eClinicalWorks Address Unknown Phone Unavailable Care Team Providers Care Wood Repatcher Name Role Phone RAUDEL STAPLES CP Unavailable Allergies No Known Allergies Problems Problem Type Condition Code Onset Dates Condition Status Problem Other chronic pain 338.29 Active Problem Other specified disease of nail 703.8 Active Problem Equinus deformity of foot, acquired 736.72 Active Problem Unspecified hereditary and idiopathic peripheral neuropathy 356.9 Active Problem Coronary atherosclerosis of unspecified type of vessel, [place] or graft 414.00 Active Problem Dermatophytosis of [...] End Date Status Dosage TraMADol HCl ER [facility] [address]-28 100 MG Orally Once a day [facility] Jun 29, 2015 1 tablet Results No Known Results Summary Purpose eClinicalWorks Submission
--- OUTSIDE RECORDS SUMMARY | 2017-02-05 10:52 | XMS REPORT ---
Author Author RAUDEL STAPLES [facility] eClinicalWorks Address Unknown Phone Unavailable Care Team Providers Care Spectral Scientist Name Role Phone RAUDEL STAPLES CP Unavailable Allergies No Known Allergies Problems Problem Type Condition Code Onset Dates Condition Status Problem Other chronic pain 338.29 Active Problem Other specified disease of nail 703.8 Active Problem Equinus deformity of foot, acquired 736.72 Active Problem Unspecified hereditary and idiopathic peripheral neuropathy 356.9 Active Problem Coronary atherosclerosis of unspecified type of vessel, [place] or graft 414.00 Active Problem Dermatophytosis of [...] for chronic pain TraMADol HCl ER [place] [address]-52 100 MG Orally Once a day [facility] Apr 27, 2015 1 tablet Results No Known Results Summary Purpose eClinicalWorks Submission
--- OUTSIDE RECORDS SUMMARY | 2017-02-05 10:52 | XMS REPORT ---
Author Author RAUDEL STAPLES Organization eClinicalWorks Address Unknown Phone Unavailable Care Team Providers Care Pillar Man Name Role Phone RAUDEL STAPLES CP Unavailable [...] Vascular dementia without behavioral disturbance F01.50 Active Assessment Other chronic pain G89.29 Active Problem Other chronic pain G89.29 Active [...] Date End Date Status Dosage Morphine Sulfate [facility] [address]-91 15 MG Orally ([facility]) every 6 hours Jul 07, 2015 0.5 tablet as needed Results No Known Results Summary Purpose eClinicalWorks Submission
--- OUTSIDE RECORDS SUMMARY | 2017-02-05 10:53 | XMS REPORT ---
Author ERICA Villatoro [facility] eClinicalWorks Address Unknown Phone Unavailable Care Team Providers Care Supervisor Sample Name Role Phone ERICA THAO CP Unavailable Allergies No Known Allergies Problems Problem Type Condition Code Onset Dates Condition Status Problem Other chronic pain 338.29 Active Problem Other specified disease of nail 703.8 Active Problem Equinus deformity of foot, acquired 736.72 Active Problem Unspecified hereditary and idiopathic peripheral neuropathy 356.9 Active Problem Coronary atherosclerosis of unspecified type of vessel, [place] or graft 414.00 Active Problem Dermatophytosis of [...] tramadol NDC 0 50 mg PT [facility] October 16, 2014 1 Tablet by Oral route 1 time per day qHS, for chronic pain TraMADol HCl [place] [address]-82 100 MG Orally Once a day [facility] May 26, 2015 1 tablet Results No Known Results Summary Purpose eClinicalWorks Submission
--- OUTSIDE RECORDS SUMMARY | 2017-02-05 10:53 | XMS REPORT ---
Author ERICA Villatoro [facility] eClinicalWorks Address Unknown Phone Unavailable Care Team Providers Care Mountain Bike Guide Name Role Phone ERICA THAO CP Unavailable Allergies No Known Allergies Problems Problem Type Condition Code Onset Dates Condition Status Problem Other chronic pain 338.29 Active Problem Other specified disease of nail 703.8 Active Problem Equinus deformity of foot, acquired 736.72 Active Problem Unspecified hereditary and idiopathic peripheral neuropathy 356.9 Active Problem Coronary atherosclerosis of unspecified type of vessel, [place] or graft 414.00 Active Problem Dermatophytosis of [...]
--- OUTSIDE RECORDS SUMMARY | 2017-02-05 10:53 | XMS REPORT ---
Author Author RAUDEL STAPLES Organization eClinicalWorks Address Unknown Phone Unavailable Care Team Providers Care Delivery Driver Assistant Name Role Phone RAUDEL STAPLES CP Unavailable Allergies No Known Allergies Problems Problem Type Condition Code Onset Dates Condition Status Problem Vitamin deficiency E56.9 Active Problem Low back pain, unspecified back pain laterality, unspecified chronicity, with sciatica presence unspecified M54.5 Active Problem Constipation, unspecified constipation type K59.00 Active Problem Obsessive compulsive disorder F42 Active Assessment Type 2 diabetes mellitus with complication E11.8 Active Problem Essential hypertension I10 Active Assessment Other chronic pain G89.29 Active Problem Chronic congestive heart failure, unspecified congestive heart failure type I50.9 Active Problem Peripheral polyneuropathy G62.9 Active Problem Generalized edema R60.1 Active Problem Mild episode of recurrent major depressive disorder F33.0 Active Problem Chronic kidney disease, unspecified stage N18.9 Active Problem Type 2 diabetes mellitus with complication E11.8 Active Problem Vascular dementia without behavioral disturbance F01.50 Active Assessment CKD (chronic kidney disease) stage 4, GFR 15-29 ml/min N18.4 Active Problem Other chronic pain G89.29 Active Problem Mild acid reflux K21.9 Active Problem Shortness of breath R06.02 Active Problem Chronic kidney disease, stage 3 (moderate) N18.3 Active Problem Severe pain R52 Active Problem Mild pain R52 Active Problem Nausea and vomiting, unspecified intactability, vomiting of unspecified type R11.2 Active Medications No Known Medications Procedures Procedure Coding System Code Date Stable Visit (10 minutes) CPT-4 48306 February 15, 2016 Results No Known Results Summary Purpose eClinicalWorks Submission
--- OUTSIDE RECORDS SUMMARY | 2017-02-05 10:54 | XMS REPORT ---
Author Author RAUDEL STAPLES [facility] Address [address] [place] [address] Care Team Providers Care Soft Work Wrapper Examiner Name Role Phone RAUDEL STAPLES Unavailable PROBLEMS Type Condition ICD9-CM Code YHV29-EH Code Onset Dates Condition Status SNOMED Code Problem Constipation, unspecified constipation type K59.00 Active 47811117 Problem Generalized edema R60.1 Active 673565361 Problem Low back pain, unspecified back pain laterality, unspecified chronicity, with sciatica presence unspecified M54.5 Active 801456002 Problem Chronic congestive heart failure, unspecified congestive heart failure type I50.9 Active 52016250 Problem Obsessive compulsive disorder F42 Active 962748117 Problem Chronic kidney disease, unspecified stage N18.9 Active 869245327 Problem Peripheral polyneuropathy G62.9 Active 54762865 Problem Essential hypertension I10 Active 36516986 Problem Mild episode of recurrent major depressive disorder F33.0 Active 606577017 Problem Vascular dementia without behavioral disturbance F01.50 Active 573121929 Problem Chronic kidney disease, stage 3 (moderate) N18.3 Active 286674880 Problem Other chronic pain G89.29 Active 41595644 Problem Type 2 diabetes mellitus with complication E11.8 Active 27251104 Problem Shortness of breath R06.02 Active 595839211 Problem Severe pain R52 Active 43414566 Problem Mild pain R52 Active 02757030 Problem Nausea and vomiting, unspecified intactability, vomiting of unspecified type R11.2 Active 16602896 Problem Mild acid reflux K21.9 Active 260253367 Problem Vitamin deficiency E56.9 Active 94010175 ALLERGIES Unknown Allergies SOCIAL HISTORY No smoking Hx information available PLAN OF CARE VITAL SIGNS MEDICATIONS Unknown Medications RESULTS No Results PROCEDURES No Known procedures IMMUNIZATIONS No Known Immunizations
--- OUTSIDE RECORDS SUMMARY | 2017-02-05 10:54 | XMS REPORT | Clinical Summary ---
Author Author User, ALO Marte [address] Address Unknown Phone Allergies, Adverse Reactions, Alerts Allergy Name Reaction Description Start Date Severity Status Provider Allergies Unknown Conditions or Problems Problem Name Problem Code Onset Date Status Entry Date Provider Comment Standard Description Annotate Problems Unknown Active Medication List Medication Instructions Start Date Stop Date Generic Name NDC Status Provider Patient Instruction Drug Treatment Unknown - unknown
--- OUTSIDE RECORDS SUMMARY | 2017-02-05 10:54 | XMS REPORT ---
Author ERICA Villatoro [facility] eClinicalWorks Address Unknown Phone Unavailable Care Team Providers Care Abnormal Psychology Teacher Name Role Phone ERICA THAO CP Unavailable [...] Coronary atherosclerosis of unspecified type of vessel, [place] or graft 414.00 Active Problem Congestive heart failure, unspecified 428.0 Active Medications Medication Code System Code Instructions Start Date End Date Status Dosage Norvasc [facility] [address]-15 10 mg Orally Once a day May 13, 2014 1 tablet Hydrochlorothiazide [facility] [address]-13 25 MG Orally Once a day Jun 11, 2014 1 tablet Pantoprazole Sodium [facility] 97385105314 20 MG TAKE 1 TABLET BY MOUTH DAILY Latuda [facility] [address]-08 60 mg Orally Once a day 1 tablet Pristiq [facility] [address]-94 50 mg Orally Once a day 1 tablet Metoclopramide HCl [facility] [address]-47 5 MG Orally 4 times a day 1 tablet Lisinopril [facility] [address]-07 40 MG Orally Once a day May 13, 2014 1 tablet Cardura [facility] [address]-20 8 MG Orally twice a day 1 tablet Oxygen ND 0 ... by inhalation route PRN 2L by nasal cannula as needed for SOB Aspirin Adult Low Strength [facility] [address]-13 81 MG Orally Once a day 1 tablet NovoLog [facility] 29922042319 100 UNIT/ML INJECT 15 UNITS SUBCUTANEOUSLY BEFORE MEALS (MAY INCREASE UP TO TOTAL OF 25 UNITS PER SLIDING SCALE) levothyroxine [facility] 0 25 mcg Apr 17, 2013 1 Tablet by Oral route 1 time per day Levemir [facility] [address]-28 100 UNIT/ML Subcutaneous 2 times a day May 13, 2014 Inject 20 units Potassium Chloride [facility] [address]-32 20 mEq May 13, 2014 1 Tablet by Oral route 2 times per day Torsemide [facility] [address]-85 20 mg Orally Once a day 2 tablets HydrALAZINE HCl [facility] [address]-73 50 MG Orally 3 times a day 1 tablet Morphine Sulfate [facility] [address]-57 15 MG Orally ([facility]) every 6 hours Jul 07, 2015 0.5 tablet as needed Ativan [facility] [address]-01 1 MG Orally every 6 hours Jul 07, 2015 1 tablet as needed Biofreeze Roll-On [facility] [address]34-[address]388 4 % Externally every 6 hours 1 application to affected area as needed Colace [facility] [address]-43 100 MG Orally 2 times a day May 13, 2014 1 Capsule MagOx 400 [facility] [address]643-[address]692 400 (241.3 Mg) MG Orally 2 times a day November 25, 2014 1 tablet Acetaminophen [facility] [address]-27 500 MG Orally every 8 hours 2 tablets as needed Tums [facility] [address]-81 200 mg calcium (500 mg) May 13, 2014 1 Tablet by Oral route every 8 hours PRN indigestion, for esophageal reflux Results No Known Results Summary Purpose eClinicalWorks Submission
--- OUTSIDE RECORDS SUMMARY | 2017-02-05 10:55 | XMS REPORT ---
Author Author RAUDEL STAPLES Organization eClinicalWorks Address Unknown Phone Unavailable Care Team Providers Care Audit Spec Name Role Phone RAUDEL STAPLES CP Unavailable [...] End Date Status Dosage Morphine Sulfate [facility] [address]-55 15 MG Orally ([facility]) three times a day for 12 days, then decreased to BID for 17 days. (Dr. Best to sign Jul 07, 2015 1/2 tablet Results No Known Results Summary Purpose eClinicalWorks Submission
--- OUTSIDE RECORDS SUMMARY | 2017-02-05 10:55 | XMS REPORT ---
Author Author RAUDEL STAPLES [facility] eClinicalWorks Address Unknown Phone Unavailable Care Team Providers Care Department Secretary Name Role Phone RAUDEL STAPLES CP Unavailable [...] Instructions Start Date End Date Status Dosage Biofreeze Roll-On [facility] [address] 4 % Externally every 6 hours 1 application to affected area as needed HydrALAZINE HCl [facility] [address]-16 50 MG Orally 3 times a day 1 tablet Hydrochlorothiazide [facility] [address]-17 25 MG Orally Once a day Jun 11, 2014 1 tablet NovoLog [facility] 44978242810 100 UNIT/ML INJECT 15 UNITS SUBCUTANEOUSLY BEFORE MEALS (MAY INCREASE UP TO TOTAL OF 25 UNITS PER SLIDING SCALE) MagOx 400 [facility] [address]649 400 (241.3 Mg) MG Orally 2 times a day 1 tablet Pantoprazole Sodium [facility] 07728183489 20 MG TAKE 1 TABLET BY MOUTH DAILY Ativan [facility] [address]-44 1 MG Orally every 6 hours Jul 07, 2015 1 tablet as needed Latuda [facility] [address]-28 60 mg Orally Once a day at HS 1 tablet Tresiba FlexTouch [facility] [address]-38 100 UNIT/ML Subcutaneous Once a day at HS 20units Oxygen ND 0 ... by inhalation route PRN 2L by nasal cannula as needed for SOB Pristiq [facility] [address]-40 50 mg every other day May 13, 2014 1 Tablet by Oral route 1 time per day Morphine Sulfate [facility] [address]-68 15 MG Orally ([facility]) every 6 hours Jul 07, 2015 0.5 tablet as needed Torsemide [facility] [address]-21 20 mg Orally Once a day 2 tablets Potassium Chloride [facility] [address]-04 20 mEq May 13, 2014 1 Tablet by Oral route 2 times per day Cardura [facility] [address]-11 8 MG Orally twice a day 1 tablet Colace [facility] [address]-81 100 MG Orally 2 times a day May 13, 2014 1 Capsule Tums [facility] [address]-75 200 mg calcium (500 mg) May 13, 2014 1 Tablet by Oral route every 8 hours PRN indigestion, for esophageal reflux Acetaminophen [facility] [address]-22 500 MG Orally every 8 hours 2 tablets as needed Lisinopril [facility] [address]-59 40 MG Orally Once a day May 13, 2014 1 tablet Aspirin Adult Low Strength [facility] [address]-53 81 MG Orally Once a day 1 tablet Norvasc [facility] [address]-05 10 mg Orally Once a day May 13, 2014 1 tablet Trulicity [facility] [address]-08 1.5 MG/0.5ML Subcutaneous once weekly on Monday December 14, 2015 Inject 2mg Results No Known Results Summary Purpose eClinicalWorks Submission
--- OUTSIDE RECORDS SUMMARY | 2017-02-05 10:56 | XMS REPORT ---
Author ERICA Villatoro [facility] eClinicalWorks Address Unknown Phone Unavailable Care Team Providers Care Explosive Technician Name Role Phone ERICA THAO CP Unavailable Allergies No Known Allergies Problems Problem Type Condition Code Onset Dates Condition Status Problem Other chronic pain 338.29 Active Problem Other specified disease of nail 703.8 Active Problem Equinus deformity of foot, acquired 736.72 Active Problem Unspecified hereditary and idiopathic peripheral neuropathy 356.9 Active Problem Coronary atherosclerosis of unspecified type of vessel, [place] or graft 414.00 Active Problem Dermatophytosis of [...]
--- OUTSIDE RECORDS SUMMARY | 2017-02-05 10:56 | XMS REPORT ---
Author Author RAUDEL STAPLES [facility] eClinicalWorks Address Unknown Phone Unavailable Care Team Providers Care Prefitter Name Role Phone RAUDEL STAPLES CP Unavailable Allergies No Known Allergies Problems Problem Type Condition Code Onset Dates Condition Status Assessment CKD (chronic kidney disease) stage 4, GFR 15-29 ml/min N18.4 Active Assessment Dementia without behavioral disturbance, unspecified dementia type F03.90 Active Assessment Essential hypertension I10 Active Problem Other chronic pain 338.29 Active Problem Other specified disease of nail 703.8 Active Problem Equinus deformity of foot, acquired 736.72 Active Problem Unspecified hereditary and idiopathic peripheral neuropathy 356.9 Active Problem Coronary atherosclerosis of unspecified type of vessel, [place] or graft 414.00 Active Problem Dermatophytosis of [...] vomiting 787.01 Active Medications No Known Medications Procedures Procedure Coding System Code Date Minor complication (15 mins) CPT-4 14170 Jun 29, 2015 Results No Known Results Summary Purpose eClinicalWorks Submission
--- OUTSIDE RECORDS SUMMARY | 2017-02-05 10:56 | XMS REPORT ---
Author Author RAUDEL STAPLES Organization eClinicalWorks Address Unknown Phone Unavailable Care Team Providers Care Buggy Ladle Tender Name Role Phone RAUDEL STAPLES CP Unavailable [...] Instructions Start Date End Date Status Dosage Pristiq [facility] [address]-12 50 mg every other day May 13, 2014 1 Tablet by Oral route 1 time per day Results No Known Results Summary Purpose eClinicalWorks Submission
--- OUTSIDE RECORDS SUMMARY | 2017-02-05 10:56 | XMS REPORT ---
Author ERICA Villatoro [facility] eClinicalWorks Address Unknown Phone Unavailable Care Team Providers Care Coater Associate Name Role Phone ERICA THAO CP Unavailable Allergies No Known Allergies Problems Problem Type Condition Code Onset Dates Condition Status Problem Other chronic pain 338.29 Active Problem Other specified disease of nail 703.8 Active Problem Equinus deformity of foot, acquired 736.72 Active Problem Unspecified hereditary and idiopathic peripheral neuropathy 356.9 Active Problem Coronary atherosclerosis of unspecified type of vessel, [place] or graft 414.00 Active Problem Dermatophytosis of [...] Date End Date Status Dosage Morphine Sulfate [facility] [address]-51 15 MG Orally [facility] every 6 hrs Jul 07, 2015 1/2 tablet Ativan [facility] [address]-19 1 MG Orally every 6 hours Jul 07, 2015 1 tablet at bedtime as neede Results No Known Results Summary Purpose eClinicalWorks Submission
--- OUTSIDE RECORDS SUMMARY | 2017-02-05 10:57 | XMS REPORT ---
Author Author RAUDEL STAPLES Organization eClinicalWorks Address Unknown Phone Unavailable Care Team Providers Care Director Of Institutional Research Name Role Phone RAUDEL STAPLES CP Unavailable Allergies No Known Allergies Problems Problem Type Condition Code Onset Dates Condition Status Problem Other chronic pain 338.29 Active Problem Other specified disease of nail 703.8 Active Problem Equinus deformity of foot, acquired 736.72 Active Problem Unspecified hereditary and idiopathic peripheral neuropathy 356.9 Active Problem Coronary atherosclerosis of unspecified type of vessel, [place] or graft 414.00 Active Problem Dermatophytosis of [...]
--- OUTSIDE RECORDS SUMMARY | 2017-02-05 10:57 | XMS REPORT ---
Author Author RAUDEL STAPLES Organization [facility] Address [address] [place] [address] Care Team Providers Care Management Technician Name Role Phone RAUDEL STAPLES Unavailable PROBLEMS Type Condition ICD9-CM Code [id number] Code Onset Dates Condition Status SNOMED Code Problem Constipation, unspecified constipation type K59.00 Active 71327804 Problem Generalized edema R60.1 Active 246034886 Problem Low back pain, unspecified back pain laterality, unspecified chronicity, with sciatica presence unspecified M54.5 Active 373482823 Problem Chronic congestive heart failure, unspecified congestive heart failure type I50.9 Active 23943447 Assessment Hyperglycemia R73.9 Jun, Active 47414688 Problem Obsessive compulsive disorder F42 Active 847180336 Problem Chronic kidney disease, unspecified stage N18.9 Active 296294807 Problem Peripheral polyneuropathy G62.9 Active 44378813 Problem Essential hypertension I10 Active 75043132 Problem Mild episode of recurrent major depressive disorder F33.0 Active 679808769 Problem Vascular dementia without behavioral disturbance F01.50 Active 647685596 Problem Chronic kidney disease, stage 3 (moderate) N18.3 Active 639129823 Problem Other chronic pain G89.29 Active 62269412 Problem Type 2 diabetes mellitus with complication E11.8 Active 28381399 Problem Shortness of breath R06.02 Active 525958483 Problem Severe pain R52 Active 36016529 Problem Mild pain R52 Active 62316515 Problem Nausea and vomiting, unspecified intactability, vomiting of unspecified type R11.2 Active 97581189 Problem Mild acid reflux K21.9 Active 259182504 Problem Vitamin deficiency E56.9 Active 93223309 ALLERGIES Unknown Allergies SOCIAL HISTORY No smoking Hx information available PLAN OF CARE VITAL SIGNS MEDICATIONS Unknown Medications RESULTS No Results PROCEDURES Procedure Date Ordered Related Diagnosis Body Site Minor complication (15 mins) Jul 11, 2016 IMMUNIZATIONS No Known Immunizations
--- OUTSIDE RECORDS SUMMARY | 2017-02-05 10:57 | XMS REPORT ---
Author Author RAUDEL STAPLES Organization [employer] Address Unknown Phone Unavailable Care Team Providers Care Head Of Precision Targeting Name Role Phone RAUDEL STAPLES CP Unavailable [...] Date End Date Status Dosage Morphine Sulfate [facility] [address]-45 15 MG Orally ([facility]) 2 times a day Jul 07, 2015 Jun 09, 2016 1 tablet Results No Known Results Summary Purpose [employer] Submission
--- OUTSIDE RECORDS SUMMARY | 2017-02-05 10:57 | XMS REPORT ---
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
--- OUTSIDE RECORDS SUMMARY | 2017-02-05 10:57 | XMS REPORT ---
Author Author RAUDEL STAPLES [facility] [employer] Address Unknown Phone Unavailable Care Team Providers Care Materials Coordinator Name Role Phone RAUDEL STAPLES CP Unavailable [...] Coronary atherosclerosis of unspecified type of vessel, [place] or graft 414.00 Active Problem Congestive heart failure, unspecified 428.0 Active Medications Medication Code System Code Instructions Start Date End Date Status Dosage Morphine Sulfate [facility] [address]-88 15 MG Orally ([facility]) every 6 hours Jul 07, 2015 0.5 tablet as needed Results No Known Results Summary Purpose [employer] Submission
--- OUTSIDE RECORDS SUMMARY | 2017-02-05 10:57 | XMS REPORT ---
Author Author RAUDEL STAPLES [facility] Address [address] [place] [address] Care Team Providers Care Medical Insurance Claims Specialist Name Role Phone RAUDEL STAPLES Unavailable PROBLEMS Type Condition ICD9-CM Code IMI71-GW Code Onset Dates Condition Status SNOMED Code Problem Constipation, unspecified constipation type K59.00 Active 87798765 Problem Generalized edema R60.1 Active 400781557 Problem Low back pain, unspecified back pain laterality, unspecified chronicity, with sciatica presence unspecified M54.5 Active 854990626 Problem Chronic congestive heart failure, unspecified congestive heart failure type I50.9 Active 96180771 Assessment Other chronic pain G89.29 Feb, Active 11044256 Problem Obsessive compulsive disorder F42 Active 050324255 Assessment CKD (chronic kidney disease) stage 4, GFR 15-29 ml/min N18.4 Feb, Active 582177731 Problem Chronic kidney disease, unspecified stage N18.9 Active 234163456 Problem Peripheral polyneuropathy G62.9 Active 49774165 Problem Essential hypertension I10 Active 54546024 Problem Mild episode of recurrent major depressive disorder F33.0 Active 601652097 Problem Vascular dementia without behavioral disturbance F01.50 Active 517316444 Problem Chronic kidney disease, stage 3 (moderate) N18.3 Active 563028880 Problem Other chronic pain G89.29 Active 05299183 Problem Type 2 diabetes mellitus with complication E11.8 Active 67052140 Problem Shortness of breath R06.02 Active 022050198 Problem Severe pain R52 Active 56190877 Problem Mild pain R52 Active 73721590 Problem Nausea and vomiting, unspecified intactability, vomiting of unspecified type R11.2 Active 23199120 Problem Mild acid reflux K21.9 Active 972130372 Problem Vitamin deficiency E56.9 Active 56046074 ALLERGIES Unknown Allergies SOCIAL HISTORY No smoking Hx information available PLAN OF CARE VITAL SIGNS MEDICATIONS Unknown Medications RESULTS No Results PROCEDURES Procedure Date Ordered Related Diagnosis Body Site Stable Visit (10 minutes) Mar 28, 2016 IMMUNIZATIONS No Known Immunizations
--- OUTSIDE RECORDS SUMMARY | 2017-02-05 10:57 | XMS REPORT ---
Author Author RAUDEL STAPLES Organization [facility] Address [address] [place] [address] Care Team Providers Care Administrator Pesticide Name Role Phone RAUDEL STAPLES Unavailable PROBLEMS Type Condition ICD9-CM Code YGL12-LI Code Onset Dates Condition Status SNOMED Code Problem Constipation, unspecified constipation type K59.00 Active 87656773 Problem Generalized edema R60.1 Active 717409823 Problem Low back pain, unspecified back pain laterality, unspecified chronicity, with sciatica presence unspecified M54.5 Active 051764142 Problem Chronic congestive heart failure, unspecified congestive heart failure type I50.9 Active 09014787 Problem Obsessive compulsive disorder F42 Active 360643462 Problem Chronic kidney disease, unspecified stage N18.9 Active 038082024 Problem Peripheral polyneuropathy G62.9 Active 77389402 Problem Essential hypertension I10 Active 15441677 Problem Mild episode of recurrent major depressive disorder F33.0 Active 603524572 Problem Vascular dementia without behavioral disturbance F01.50 Active 181790741 Problem Chronic kidney disease, stage 3 (moderate) N18.3 Active 975262407 Problem Other chronic pain G89.29 Active 20603807 Problem Type 2 diabetes mellitus with complication E11.8 Active 02404170 Problem Shortness of breath R06.02 Active 479476425 Problem Severe pain R52 Active 42198859 Problem Mild pain R52 Active 58161440 Problem Nausea and vomiting, unspecified intactability, vomiting of unspecified type R11.2 Active 40668557 Problem Mild acid reflux K21.9 Active 895838082 Problem Vitamin deficiency E56.9 Active 22135089 ALLERGIES Unknown Allergies SOCIAL HISTORY No smoking Hx information available PLAN OF CARE VITAL SIGNS MEDICATIONS Medication Instructions Dosage Frequency Start Date End Date Duration Status Scopolamine 1 MG/3DAYS 1 patch to skin as needed Mar, Apr, 15 days Active RESULTS No Results PROCEDURES No Known procedures IMMUNIZATIONS No Known Immunizations
--- OUTSIDE RECORDS SUMMARY | 2017-02-05 10:58 | XMS REPORT ---
Author Author RAUDEL STAPLES [facility] Address [address] [place] [address] Care Team Providers Care Airbrush Painter Name Role Phone RAUDEL STAPLES Unavailable PROBLEMS Type Condition ICD9-CM Code XXK86-GS Code Onset Dates Condition Status SNOMED Code Problem Constipation, unspecified constipation type K59.00 Active 25258431 Problem Generalized edema R60.1 Active 627428592 Problem Low back pain, unspecified back pain laterality, unspecified chronicity, with sciatica presence unspecified M54.5 Active 922855963 Problem Chronic congestive heart failure, unspecified congestive heart failure type I50.9 Active 64275757 Problem Obsessive compulsive disorder F42 Active 394175443 Problem Chronic kidney disease, unspecified stage N18.9 Active 154819582 Problem Peripheral polyneuropathy G62.9 Active 80859333 Problem Essential hypertension I10 Active 58566813 Problem Mild episode of recurrent major depressive disorder F33.0 Active 219988054 Problem Vascular dementia without behavioral disturbance F01.50 Active 239242483 Problem Chronic kidney disease, stage 3 (moderate) N18.3 Active 843527804 Problem Other chronic pain G89.29 Active 11774618 Problem Type 2 diabetes mellitus with complication E11.8 Active 66480402 Problem Shortness of breath R06.02 Active 690785190 Problem Severe pain R52 Active 83829432 Problem Mild pain R52 Active 12164224 Problem Nausea and vomiting, unspecified intactability, vomiting of unspecified type R11.2 Active 68798978 Problem Mild acid reflux K21.9 Active 557236704 Problem Vitamin deficiency E56.9 Active 23479806 ALLERGIES Unknown Allergies SOCIAL HISTORY No smoking Hx information available PLAN OF CARE VITAL SIGNS MEDICATIONS Unknown Medications RESULTS No Results PROCEDURES No Known procedures IMMUNIZATIONS No Known Immunizations
--- OUTSIDE RECORDS SUMMARY | 2017-02-05 10:59 | XMS REPORT ---
Author Author ERICA THAO [facility] Address [address] [place] [address] Care Team Providers Care Farmworker [employer] Name Role Phone ERICA THAO Unavailable PROBLEMS Type Condition ICD9-CM Code HBJ76-FB Code Onset Dates Condition Status SNOMED Code Problem Constipation, unspecified constipation type K59.00 Active 20986661 Problem Generalized edema R60.1 Active 627438620 Problem Low back pain, unspecified back pain laterality, unspecified chronicity, with sciatica presence unspecified M54.5 Active 600556462 Problem Chronic congestive heart failure, unspecified congestive heart failure type I50.9 Active 97116568 Problem Obsessive compulsive disorder F42 Active 691417120 Problem Chronic kidney disease, unspecified stage N18.9 Active 059351727 Problem Peripheral polyneuropathy G62.9 Active 91853871 Problem Essential hypertension I10 Active 33665474 Problem Mild episode of recurrent major depressive disorder F33.0 Active 244168622 Problem Vascular dementia without behavioral disturbance F01.50 Active 325106421 Problem Chronic kidney disease, stage 3 (moderate) N18.3 Active 094766315 Problem Other chronic pain G89.29 Active 82332770 Problem Type 2 diabetes mellitus with complication E11.8 Active 96741451 Problem Shortness of breath R06.02 Active 953923663 Problem Severe pain R52 Active 22932377 Problem Mild pain R52 Active 56774521 Problem Nausea and vomiting, unspecified intactability, vomiting of unspecified type R11.2 Active 42406800 Problem Mild acid reflux K21.9 Active 266050631 Problem Vitamin deficiency E56.9 Active 43040276 ALLERGIES Unknown Allergies SOCIAL HISTORY No smoking Hx information available PLAN OF CARE VITAL SIGNS MEDICATIONS Medication Instructions Dosage Frequency Start Date End Date Duration Status Morphine Sulfate 15 MG Orally ([facility]) every [address] Thao to sign for Merari 0.5 tablet as needed Jun, 16 Apr, 2016 30 days Active RESULTS No Results PROCEDURES No Known procedures IMMUNIZATIONS No Known Immunizations
--- OUTSIDE RECORDS SUMMARY | 2017-02-05 10:59 | XMS REPORT ---
Author Author RAUDEL STAPLES [facility] Address [address] [place] [address] Care Team Providers Care Network Director Name Role Phone RAUDEL STAPLES Unavailable PROBLEMS Type Condition ICD9-CM Code CGR97-ZA Code Onset Dates Condition Status SNOMED Code Problem Constipation, unspecified constipation type K59.00 Active 87154501 Problem Generalized edema R60.1 Active 328009900 Problem Low back pain, unspecified back pain laterality, unspecified chronicity, with sciatica presence unspecified M54.5 Active 938659322 Problem Chronic congestive heart failure, unspecified congestive heart failure type I50.9 Active 21810962 Problem Obsessive compulsive disorder F42 Active 643067360 Problem Chronic kidney disease, unspecified stage N18.9 Active 775939691 Problem Peripheral polyneuropathy G62.9 Active 28541737 Problem Essential hypertension I10 Active 46059138 Problem Mild episode of recurrent major depressive disorder F33.0 Active 781194214 Problem Vascular dementia without behavioral disturbance F01.50 Active 922844840 Problem Chronic kidney disease, stage 3 (moderate) N18.3 Active 363977879 Problem Other chronic pain G89.29 Active 50215902 Problem Type 2 diabetes mellitus with complication E11.8 Active 52377495 Problem Shortness of breath R06.02 Active 024057711 Problem Severe pain R52 Active 78352924 Problem Mild pain R52 Active 00703816 Problem Nausea and vomiting, unspecified intactability, vomiting of unspecified type R11.2 Active 04589118 Problem Mild acid reflux K21.9 Active 808165247 Problem Vitamin deficiency E56.9 Active 25901890 ALLERGIES Unknown Allergies SOCIAL HISTORY No smoking Hx information available PLAN OF CARE VITAL SIGNS MEDICATIONS Unknown Medications RESULTS No Results PROCEDURES No Known procedures IMMUNIZATIONS No Known Immunizations
--- OUTSIDE RECORDS SUMMARY | 2017-02-05 10:59 | XMS REPORT ---
Author Author RAUDEL STAPLES [facility] Address [address] [place] [address] Care Team Providers Care Compress Machine Operator Name Role Phone RAUDEL STAPLES Unavailable PROBLEMS Type Condition ICD9-CM Code LCE24-NM Code Onset Dates Condition Status SNOMED Code Problem Constipation, unspecified constipation type K59.00 Active 00728037 Problem Generalized edema R60.1 Active 344657877 Problem Low back pain, unspecified back pain laterality, unspecified chronicity, with sciatica presence unspecified M54.5 Active 928029087 Problem Chronic congestive heart failure, unspecified congestive heart failure type I50.9 Active 07762567 Problem Obsessive compulsive disorder F42 Active 141079027 Problem Chronic kidney disease, unspecified stage N18.9 Active 635222256 Problem Peripheral polyneuropathy G62.9 Active 89730850 Problem Essential hypertension I10 Active 76763019 Problem Mild episode of recurrent major depressive disorder F33.0 Active 231140377 Problem Vascular dementia without behavioral disturbance F01.50 Active 365950732 Problem Chronic kidney disease, stage 3 (moderate) N18.3 Active 580462969 Problem Other chronic pain G89.29 Active 95382986 Problem Type 2 diabetes mellitus with complication E11.8 Active 78073085 Problem Shortness of breath R06.02 Active 267323437 Problem Severe pain R52 Active 00173318 Problem Mild pain R52 Active 35714238 Problem Nausea and vomiting, unspecified intactability, vomiting of unspecified type R11.2 Active 75381767 Problem Mild acid reflux K21.9 Active 566921987 Problem Vitamin deficiency E56.9 Active 78480775 ALLERGIES Unknown Allergies SOCIAL HISTORY No smoking Hx information available PLAN OF CARE VITAL SIGNS MEDICATIONS Unknown Medications RESULTS No Results PROCEDURES No Known procedures IMMUNIZATIONS No Known Immunizations
--- OUTSIDE RECORDS SUMMARY | 2017-02-05 10:59 | XMS REPORT ---
Author Author MERARI STAPLES Organization [employer] Address Unknown Phone Unavailable Care Team Providers Care Welder Metal Fab Name Role Phone MERARI STAPLES CP Unavailable [...] Date End Date Status Dosage Morphine Sulfate [facility] [address]-78 15 MG Orally ([facility]) every [address] Walsh to sign for Merari Jul 07, 2015 0.5 tablet as needed Results No Known Results Summary Purpose [employer] Submission
--- OUTSIDE RECORDS SUMMARY | 2017-02-05 10:59 | XMS REPORT ---
Author Author RAUDEL STAPLES Organization [employer] Address Unknown Phone Unavailable Care Team Providers Care Head Of Talent Management Name Role Phone RAUDEL STAPLES CP Unavailable [...] type R11.2 Active Medications No Known Medications Results No Known Results Summary Purpose [employer] Submission
--- OUTSIDE RECORDS SUMMARY | 2017-02-05 10:59 | XMS REPORT ---
Author Author RAUDEL STAPLES [facility] [employer] Address Unknown Phone Unavailable Care Team Providers Care Legal Department Manager Name Role Phone RAUDEL STAPLES CP Unavailable Allergies No Known Allergies Problems Problem Type Condition Code Onset Dates Condition Status Assessment Nausea and vomiting, unspecified intactability, vomiting of unspecified type R11.2 Active Assessment Severe pain R52 Active Assessment Constipation, unspecified constipation type K59.00 Active Assessment Vitamin deficiency E56.9 Active Assessment Essential hypertension I10 Active Assessment Low back pain, unspecified back pain laterality, unspecified chronicity, with sciatica presence unspecified M54.5 Active Assessment Peripheral polyneuropathy G62.9 Active Assessment Mild episode of recurrent major depressive disorder F33.0 Active Assessment Obsessive compulsive disorder F42 Active Problem Severe pain R52 Active Assessment Chronic kidney disease, stage 3 (moderate) N18.3 Active Problem Nausea and vomiting, unspecified intactability, vomiting of unspecified type R11.2 Active Assessment Chronic congestive heart failure, unspecified congestive heart failure type I50.9 Active Problem Vitamin deficiency E56.9 Active Problem Low back pain, unspecified back pain laterality, unspecified chronicity, with sciatica presence unspecified M54.5 Active Problem Constipation, unspecified constipation type K59.00 Active Problem Obsessive compulsive disorder F42 Active Problem Essential hypertension I10 Active Assessment Other chronic pain G89.29 Active Assessment Vascular dementia without behavioral disturbance F01.50 Active Problem Chronic congestive heart failure, unspecified congestive heart failure type I50.9 Active Assessment Generalized edema R60.1 Active Problem Peripheral polyneuropathy G62.9 Active Problem Generalized edema R60.1 Active Problem Mild episode of recurrent major depressive disorder F33.0 Active Problem Chronic kidney disease, unspecified stage N18.9 Active Assessment Mild acid reflux K21.9 Active Problem Type 2 diabetes mellitus with complication E11.8 Active Assessment Shortness of breath R06.02 Active Problem Vascular dementia without behavioral disturbance F01.50 Active Assessment Dementia in other diseases classified elsewhere with behavioral disturbance F02.81 Active Assessment Type 2 diabetes mellitus with complication E11.8 Active Assessment Mild pain R52 Active Problem Other chronic pain G89.29 Active Problem Mild acid reflux K21.9 Active Problem Shortness of breath R06.02 Active Problem Chronic kidney disease, stage 3 (moderate) N18.3 Active Problem Mild pain R52 Active Medications Medication Code System Code Instructions Start Date End Date Status Dosage Tums [facility] [address]-49 200 mg calcium (500 mg) May 13, 2014 1 Tablet by Oral route every 8 hours PRN indigestion, for esophageal reflux Lisinopril [facility] [address]-65 40 MG Orally Once a day May 13, 2014 1 tablet Potassium Chloride [facility] [address]-81 20 mEq May 13, 2014 1 Tablet by Oral route 2 times per day Pantoprazole Sodium [facility] [id number] 20 MG TAKE 1 TABLET BY MOUTH DAILY MagOx 400 [facility] [address]4800 400 (241.3 Mg) MG Orally 2 times a day November 25, 2014 1 tablet HydrALAZINE HCl [facility] [address]-02 50 MG Orally 3 times a day 1 tablet Hydrochlorothiazide [facility] [address]-75 25 MG Orally Once a day Jun 11, 2014 1 tablet Biofreeze Roll-On [facility] [address]2754 4 % Externally every 6 hours 1 application to affected area as needed Metoclopramide HCl [facility] [address]-46 5 MG Orally 4 times a day 1 tablet Aspirin Adult Low Strength [facility] [address]-19 81 MG Orally Once a day 1 tablet Acetaminophen [facility] [address]-42 500 MG Orally every 8 hours 2 tablets as needed Cardura [facility] [address]-22 8 MG Orally twice a day 1 tablet Morphine Sulfate [facility] [address]-64 15 MG Orally ([facility]) every 6 hours Jul 07, 2015 0.5 tablet as needed Torsemide [facility] [address]-10 20 mg Orally Once a day 2 tablets Latuda [facility] [address]-58 60 mg Orally Once a day 1 tablet Norvasc [facility] [address]-09 10 mg Orally Once a day May 13, 2014 1 tablet Trulicity [facility] [address]-12 1.5 MG/0.5ML Subcutaneous once weekly on Monday December 14, 2015 Inject 2mg Levemir [facility] [address]-00 100 UNIT/ML Subcutaneous 2 times a day May 13, 2014 Inject 15 units Ativan [facility] [address]-75 1 MG Orally every 6 hours Jul 07, 2015 1 tablet as needed NovoLog [facility] [id number] 100 UNIT/ML INJECT 15 UNITS SUBCUTANEOUSLY BEFORE MEALS (MAY INCREASE UP TO TOTAL OF 25 UNITS PER SLIDING SCALE) Oxygen ND 0 ... by inhalation route PRN 2L by nasal cannula as needed for SOB Pristiq [facility] [address]-48 50 mg May 13, 2014 1 Tablet by Oral route 1 time per day Colace [facility] [address]-09 100 MG Orally 2 times a day May 13, 2014 1 Capsule Procedures Procedure Coding System Code Date Minor complication (15 mins) CPT-4 98615 December 14, 2015 Results No Known Results Summary Purpose [employer] Submission
--- OUTSIDE RECORDS SUMMARY | 2017-02-05 10:59 | XMS REPORT ---
Author Author RAUDEL STAPLES Organization [facility] Address [address] [place] [address] Care Team Providers Care [employer] Associate Name Role Phone RAUDEL [employer]LES Unavailable PROBLEMS Type Condition ICD9-CM Code [id number] Code Onset Dates Condition Status SNOMED Code Problem Constipation, unspecified constipation type K59.00 Active 76662707 Problem Generalized edema R60.1 Active 250877280 Problem Low back pain, unspecified back pain laterality, unspecified chronicity, with sciatica presence unspecified M54.5 Active 533324895 Problem Chronic congestive heart failure, unspecified congestive heart failure type I50.9 Active 51748283 Problem Obsessive compulsive disorder F42 Active 142669657 Problem Chronic kidney disease, unspecified stage N18.9 Active 875334270 Problem Peripheral polyneuropathy G62.9 Active 98161441 Problem Essential hypertension I10 Active 98615054 Problem Mild episode of recurrent major depressive disorder F33.0 Active 120470204 Problem Vascular dementia without behavioral disturbance F01.50 Active 961323588 Problem Chronic kidney disease, stage 3 (moderate) N18.3 Active 879101062 Problem Other chronic pain G89.29 Active 18035162 Problem Type 2 diabetes mellitus with complication E11.8 Active 01102631 Problem Shortness of breath R06.02 Active 657451128 Problem Severe pain R52 Active 96868251 Problem Mild pain R52 Active 86405972 Problem Nausea and vomiting, unspecified intactability, vomiting of unspecified type R11.2 Active 86140816 Problem Mild acid reflux K21.9 Active 718933896 Problem Vitamin deficiency E56.9 Active 62129150 ALLERGIES Unknown Allergies SOCIAL HISTORY No smoking Hx information available PLAN OF CARE VITAL SIGNS MEDICATIONS Medication Instructions Dosage Frequency Start Date End Date Duration Status Gentamicin Sulfate 0.3 % Ophthalmic every 2 hrs, then QID x5 more days starting morning of 12/6 2 drops into affected eye Jun, Active RESULTS No Results PROCEDURES No Known procedures IMMUNIZATIONS No Known Immunizations
--- OUTSIDE RECORDS SUMMARY | 2017-02-05 11:00 | XMS REPORT ---
Author Author MERARI STAPLES Organization [employer] Address Unknown Phone Unavailable Care Team Providers Care Child Care Sitter Name Role Phone MERARI STAPLES CP Unavailable [...] Date End Date Status Dosage Morphine Sulfate [facility] [address]-92 15 MG Orally ([facility]) 2 times a day (Dr Wlash to sign for [employer]) Jul 07, 2015 Jun 10, 2016 1/2 tablet Results No Known Results Summary Purpose [employer] Submission
--- OUTSIDE RECORDS SUMMARY | 2017-02-05 11:04 | XMS REPORT | Continuity of Care Document ---
Author Author Formerly [facility] Address Unknown Phone Unavailable Allergies Active Description Code Type Severity Reaction Onset Reported/Identified Relationship to Patient Clinical Status Yes No Known Drug Allergies [id number] Drug Allergy Unknown N/ A 03/22/2013 Medications Problems Date Dx Coded Attending Type Code Diagnosis Diagnosed By 03/25/2009 MICHAEL RODRIGUEZ DO 250.00 Diabetes Mellitus 03/25/2009 MICHAEL RODRIGUEZ DO K 401.9 ESSENTIAL HYPERTENSION 03/25/2009 ERICA THAO MD 250.00 Diabetes Mellitus 03/25/2009 ERICA THAO MD 401.9 ESSENTIAL HYPERTENSION 03/25/2009 ERICA THAO MD 250.00 Diabetes Mellitus 03/25/2009 ERICA THAO MD 401.9 ESSENTIAL HYPERTENSION 03/25/2009 ERICA THAO MD 250.00 Diabetes Mellitus 03/25/2009 ERICA THAO MD 401.9 ESSENTIAL HYPERTENSION 03/25/2009 MICHAEL RODRIGUEZ DO K 250.00 Diabetes Mellitus 03/25/2009 CARISSA RODRIGUEZ DOA K 401.9 ESSENTIAL HYPERTENSION 03/25/2009 ERIAC THAO MD 250.00 Diabetes Mellitus 03/25/2009 ERICA THAO MD 401.9 ESSENTIAL HYPERTENSION 03/25/2009 MICHAEL RODRIGUEZ DO K 250.00 Diabetes Mellitus 03/25/2009 MICHAEL RODRIGUEZ DO K 401.9 ESSENTIAL HYPERTENSION 03/25/2009 ERICA THAO MD 250.00 Diabetes Mellitus 03/25/2009 ERICA THAO MD 401.9 ESSENTIAL HYPERTENSION 03/25/2009 ERICA THAO MD 250.00 Diabetes Mellitus 03/25/2009 ERICA THAO MD 401.9 ESSENTIAL HYPERTENSION 03/25/2009 KEESHA ALMODOVAR, ERICA 250.00 Diabetes Mellitus 03/25/2009 ERICA THAO MD 401.9 ESSENTIAL HYPERTENSION 03/25/2009 RAUDEL STAPLES APRN S 250.00 Diabetes Mellitus 03/25/2009 JHOAN MANAGER SPECIALTY, RAUDEL S 401.9 ESSENTIAL HYPERTENSION 03/25/2009 KEESHA ALMODOVAR, ERICA 250.00 Diabetes Mellitus 03/25/2009 KEESHA ALMODOVAR, ERICA 401.9 ESSENTIAL HYPERTENSION 03/25/2009 KEESHA ALMODOVAR, ERICA 250.00 Diabetes Mellitus 03/25/2009 KEESHA ALMODOVAR, ERICA 401.9 ESSENTIAL HYPERTENSION 03/25/2009 JHOAN MANAGER SPECIALTY, RAUDEL S 250.00 Diabetes Mellitus 03/25/2009 JHOAN MANAGER SPECIALTY, RAUDEL S 401.9 ESSENTIAL HYPERTENSION 03/25/2009 RODRIGUEZ DO, MICHAEL K 250.00 Diabetes Mellitus 03/25/2009 RODRIGUEZ DO, MICHAEL K 401.9 ESSENTIAL HYPERTENSION 03/25/2009 KEESHA ALMODOVAR, ERICA 250.00 Diabetes Mellitus 03/25/2009 KEESHA ALMODOVAR, ERICA 401.9 ESSENTIAL HYPERTENSION 03/25/2009 ZEKE ALMODOVAR, ROSA ELENA N 250.00 Diabetes Mellitus 03/25/2009 ZEKE ALMODOVAR, ROSA ELENA N 401.9 ESSENTIAL HYPERTENSION 03/25/2009 ERICA THAO MD 250.00 Diabetes Mellitus 03/25/2009 ERICA THAO MD 401.9 ESSENTIAL HYPERTENSION 03/25/2009 JHOAN MANAGER SPECIALTY, RAUDEL S 250.00 Diabetes Mellitus 03/25/2009 JHOAN MANAGER SPECIALTY, RAUDEL S 401.9 ESSENTIAL HYPERTENSION 03/25/2009 JHOAN GILMOREN, RAUDEL S 250.00 Diabetes Mellitus 03/25/2009 JHOAN MANAGER SPECIALTY, RAUDEL S 401.9 ESSENTIAL HYPERTENSION 03/25/2009 RODRIGUEZ DO, MICHAEL K 250.00 Diabetes Mellitus 03/25/2009 RODRIGUEZ DO, MICHAEL K 401.9 ESSENTIAL HYPERTENSION 03/25/2009 JHOAN MANAGER SPECIALTY, RAUDEL S 250.00 Diabetes Mellitus 03/25/2009 JHOAN MANAGER SPECIALTY, RAUDEL S 401.9 ESSENTIAL HYPERTENSION 03/25/2009 ERICA THAO MD 250.00 Diabetes Mellitus 03/25/2009 ERICA THAO MD 401.9 ESSENTIAL HYPERTENSION 03/25/2009 JHOAN GILMOREN, RAUDEL S 250.00 Diabetes Mellitus 03/25/2009 JHOAN MANAGER SPECIALTY, RAUDEL S 401.9 ESSENTIAL HYPERTENSION 03/25/2009 VIVI MANAGER SPECIALTY, LUZ 250.00 Diabetes Mellitus 03/25/2009 VIVI MANAGER SPECIALTY, LUZ 401.9 ESSENTIAL HYPERTENSION 03/25/2009 VIVI MANAGER SPECIALTY, LUZ 250.00 Diabetes Mellitus 03/25/2009 VIVI MANAGER SPECIALTY, LUZ 401.9 ESSENTIAL HYPERTENSION 03/25/2009 RODRIGUEZ DO, MICHAEL K 250.00 Diabetes Mellitus 03/25/2009 RODRIGUEZ DO, MICHAEL K 401.9 ESSENTIAL HYPERTENSION 03/25/2009 VIVI MANAGER SPECIALTY, LUZ 250.00 Diabetes Mellitus 03/25/2009 VIVI MANAGER SPECIALTY, LUZ 401.9 ESSENTIAL HYPERTENSION 03/25/2009 JHOAN MANAGER SPECIALTY, RAUDEL S 250.00 Diabetes Mellitus 03/25/2009 JHOAN MANAGER SPECIALTY, RAUDEL S 401.9 ESSENTIAL HYPERTENSION 05/16/2009 RODRIGUEZ DO, MICHAEL K 599.0 Urinary Tract Infection 05/16/2009 ERICA THAO MD 599.0 Urinary Tract Infection 05/16/2009 ERICA THAO MD 599.0 Urinary Tract Infection 05/16/2009 ERICA THAO MD 599.0 Urinary Tract Infection 05/16/2009 RODRIGUEZ DO, MICHAEL K 599.0 Urinary Tract Infection 05/16/2009 ERICA THAO MD 599.0 Urinary Tract Infection 05/16/2009 RODRIGUEZ DO, MICHAEL K 599.0 Urinary Tract Infection 05/16/2009 ERICA THAO MD 599.0 Urinary Tract Infection 05/16/2009 ERICA THAO MD 599.0 Urinary Tract Infection 05/16/2009 ERICA THAO MD 599.0 Urinary Tract Infection 05/16/2009 JHOAN PACE RAUDEL S 599.0 Urinary Tract Infection 05/16/2009 ERICA THAO MD 599.0 Urinary Tract Infection 05/16/2009 ERICA THAO MD 599.0 Urinary Tract Infection 05/16/2009 JHOAN PACE RAUDEL S 599.0 Urinary Tract Infection 05/16/2009 RODRIGUEZ DO, MICHAEL K 599.0 Urinary Tract Infection 05/16/2009 ERICA THAO MD 599.0 Urinary Tract Infection 05/16/2009 ROSA ELENA ALANIS MD 599.0 Urinary Tract Infection 05/16/2009 ERICA THAO MD 599.0 Urinary Tract Infection 05/16/2009 JHOAN PACE RAUDEL S 599.0 Urinary Tract Infection 05/16/2009 JHOAN MANAGER SPECIALTY, RAUDEL S 599.0 Urinary Tract Infection 05/16/2009 RODRIGUEZ DO, MICHAEL K 599.0 Urinary Tract Infection 05/16/2009 JHOAN MANAGER SPECIALTY, RAUDEL S 599.0 Urinary Tract Infection 05/16/2009 ERICA THAO MD 599.0 Urinary Tract Infection 05/16/2009 JHOAN MANAGER SPECIALTY, RAUDEL S 599.0 Urinary Tract Infection 05/16/2009 VIVI MANAGER SPECIALTY, LUZ 599.0 Urinary Tract Infection 05/16/2009 VIVI MANAGER SPECIALTY, LUZ 599.0 Urinary Tract Infection 05/16/2009 RODRIGUEZ DO, MICHAEL K 599.0 Urinary Tract Infection 05/16/2009 VIVI MANAGER SPECIALTY, LUZ 599.0 Urinary Tract Infection 05/16/2009 JHOANMARIA M PACE, RAUDEL S 599.0 Urinary Tract Infection 06/03/2009 RODRIGUEZ DO MICHAEL K 590.10 Pyelonephritis Acute Bacterial Bilateral 06/03/2009 ERICA THAO MD 590.10 Pyelonephritis Acute Bacterial Bilateral 06/03/2009 ERICA THAO MD 590.10 Pyelonephritis Acute Bacterial Bilateral 06/03/2009 ERICA THAO MD 590.10 Pyelonephritis Acute Bacterial Bilateral 06/03/2009 MICHAEL RODRIGUEZ DO K 590.10 Pyelonephritis Acute Bacterial Bilateral 06/03/2009 ERICA THAO MD 590.10 Pyelonephritis Acute Bacterial Bilateral 06/03/2009 MICHAEL RODRIGUEZ DO K 590.10 Pyelonephritis Acute Bacterial Bilateral 06/03/2009 ERICA THAO MD 590.10 Pyelonephritis Acute Bacterial Bilateral 06/03/2009 ERICA THAO MD 590.10 Pyelonephritis Acute Bacterial Bilateral 06/03/2009 ERICA THAO MD 590.10 Pyelonephritis Acute Bacterial Bilateral 06/03/2009 RAUDEL STAPLES APRN S 590.10 Pyelonephritis Acute Bacterial Bilateral 06/03/2009 ERICA THAO MD 590.10 Pyelonephritis Acute Bacterial Bilateral 06/03/2009 ERICA THAO MD 590.10 Pyelonephritis Acute Bacterial Bilateral 06/03/2009 ISELA STAPLES APRNNDA S 590.10 Pyelonephritis Acute Bacterial Bilateral 06/03/2009 MICHAEL RODRIGUEZ DO K 590.10 Pyelonephritis Acute Bacterial Bilateral 06/03/2009 REICA THAO MD 590.10 Pyelonephritis Acute Bacterial Bilateral 06/03/2009 ZEKE ALMODOVAR, ROSA ELENA N 590.10 Pyelonephritis Acute Bacterial Bilateral 06/03/2009 ERICA THAO MD 590.10 Pyelonephritis Acute Bacterial Bilateral 06/03/2009 JHOAN MANAGER SPECIALTY, RAUDEL S 590.10 Pyelonephritis Acute Bacterial Bilateral 06/03/2009 JHOAN MANAGER SPECIALTY, RAUDEL S 590.10 Pyelonephritis Acute Bacterial Bilateral 06/03/2009 MICHAEL MCKENNA MICHAEL K 590.10 Pyelonephritis Acute Bacterial Bilateral 06/03/2009 JHOAN MANAGER SPECIALTY, RAUDEL S 590.10 Pyelonephritis Acute Bacterial Bilateral 06/03/2009 ERICA THAO MD 590.10 Pyelonephritis Acute Bacterial Bilateral 06/03/2009 JHOAN MANAGER SPECIALTY, RAUDEL S 590.10 Pyelonephritis Acute Bacterial Bilateral 06/03/2009 VIVI MANAGER SPECIALTY, LUZ 590.10 Pyelonephritis Acute Bacterial Bilateral 06/03/2009 VIVI MANAGER SPECIALTY, LUZ 590.10 Pyelonephritis Acute Bacterial Bilateral 06/03/2009 MICHAEL MCKENNA, MICHAEL K 590.10 Pyelonephritis Acute Bacterial Bilateral 06/03/2009 VIVI MANAGER SPECIALTY, LUZ 590.10 Pyelonephritis Acute Bacterial Bilateral 06/03/2009 JHOAN MANAGER SPECIALTY, RAUDEL S 590.10 Pyelonephritis Acute Bacterial Bilateral 06/17/2009 CARISSA RODRIGUEZ DOA K 788.1 Pain During Urination (dysuria) 06/17/2009 ERICA THAO MD 788.1 Pain During Urination (dysuria) 06/17/2009 ERICA THAO MD8.1 Pain During Urination (dysuria) 06/17/2009 ERICA THAO MD8.1 Pain During Urination (dysuria) 06/17/2009 MICHAEL RODRIGUEZ DO K 788.1 Pain During Urination (dysuria) 06/17/2009 ERICA THAO MD8.1 Pain During Urination (dysuria) 06/17/2009 MICHAEL RODRIGUEZ DO K 788.1 Pain During Urination (dysuria) 06/17/2009 ERICA THAO MD8.1 Pain During Urination (dysuria) 06/17/2009 HUERTER MD, ERICA 788.1 Pain During Urination (dysuria) 06/17/2009 ERICA THAO MD 788.1 Pain During Urination (dysuria) 06/17/2009 JHOAN PACE RAUDEL S 788.1 Pain During Urination (dysuria) 06/17/2009 ERICA THAO MD 788.1 Pain During Urination (dysuria) 06/17/2009 ERICA THAO MD 788.1 Pain During Urination (dysuria) 06/17/2009 JHOAN PACE, RAUDEL S 788.1 Pain During Urination (dysuria) 06/17/2009 MICHAEL RODRIGUEZ DO K 788.1 Pain During Urination (dysuria) 06/17/2009 ERICA THAO MD 788.1 Pain During Urination (dysuria) 06/17/2009 ROSA ELENA ALANIS MD N 788.1 Pain During Urination (dysuria) 06/17/2009 ERICA THAO MD 788.1 Pain During Urination (dysuria) 06/17/2009 JHOAN PACE, RAUDEL S 788.1 Pain During Urination (dysuria) 06/17/2009 JHOANMARIA M PACE, RAUDEL S 788.1 Pain During Urination (dysuria) 06/17/2009 CARISSA RODRIGUEZ DOA K 788.1 Pain During Urination (dysuria) 06/17/2009 JHOAN PACE, RAUDEL S 788.1 Pain During Urination (dysuria) 06/17/2009 ERICA THAO MD 788.1 Pain During Urination (dysuria) 06/17/2009 JHOAN PACE, RAUDEL S 788.1 Pain During Urination (dysuria) 06/17/2009 VIVI MANAGER SPECIALTY, LUZ 788.1 Pain During Urination (dysuria) 06/17/2009 VIVI MANAGER SPECIALTY LUZ 788.1 Pain During Urination (dysuria) 06/17/2009 MICHAEL MCKENNA MICHAEL K 788.1 Pain During Urination (dysuria) 06/17/2009 VIVI MANAGER SPECIALTY, LUZ 788.1 Pain During Urination (dysuria) 06/17/2009 JHOAN PACE RAUDEL S 788.1 Pain During Urination (dysuria) 08/08/2009 MICHAEL RODRIGUEZ DO K 682.2 Skin Abscess Of The Trunk - Groin 08/08/2009 ERICA THAO MD 682.2 Skin Abscess Of The Trunk - Groin 08/08/2009 ERICA THAO MD 682.2 Skin Abscess Of The Trunk - Groin 08/08/2009 ERICA THAO MD 682.2 Skin Abscess Of The Trunk - Groin 08/08/2009 MICHAEL RODRIGUEZ DO 682.2 Skin Abscess Of The Trunk - Groin 08/08/2009 ERICA THAO MD 682.2 Skin Abscess Of The Trunk - Groin 08/08/2009 MICHAEL RODRIGUEZ DO 682.2 Skin Abscess Of The Trunk - Groin 08/08/2009 ERICA THAO MD 682.2 Skin Abscess Of The Trunk - Groin 08/08/2009 ERICA THAO MD 682.2 Skin Abscess Of The Trunk - Groin 08/08/2009 ERICA THAO MD 682.2 Skin Abscess Of The Trunk - Groin 08/08/2009 RAUDEL STAPLES APRN S 682.2 Skin Abscess Of The Trunk - Groin 08/08/2009 ERICA THAO MD 682.2 Skin Abscess Of The Trunk - Groin 08/08/2009 ERICA THAO MD 682.2 Skin Abscess Of The Trunk - Groin 08/08/2009 RAUDEL STAPLES APRN S 682.2 Skin Abscess Of The Trunk - Groin 08/08/2009 MICHAEL RODRIGUEZ DO 682.2 Skin Abscess Of The Trunk - Groin 08/08/2009 ERICA THAO MD 682.2 Skin Abscess Of The Trunk - Groin 08/08/2009 ZEKE ALMODOVAR, ROSA ELENA Ulloa 682.2 Skin Abscess Of The Trunk - Groin 08/08/2009 ERICA THAO MD 682.2 Skin Abscess Of The Trunk - Groin 08/08/2009 RAUDEL STAPLES APRN S 682.2 Skin Abscess Of The Trunk - Groin 08/08/2009 RAUDEL STAPLES APRN S 682.2 Skin Abscess Of The Trunk - Groin 08/08/2009 MICHAEL RODRIGUEZ DO K 682.2 Skin Abscess Of The Trunk - Groin 08/08/2009 JHOAN PACE, RAUDEL S 682.2 Skin Abscess Of The Trunk - Groin 08/08/2009 ERICA THAO MD 682.2 Skin Abscess Of The Trunk - Groin 08/08/2009 JHOAN PACE, RAUDEL S 682.2 Skin Abscess Of The Trunk - Groin 08/08/2009 VIVI MANAGER SPECIALTY, LUZ 682.2 Skin Abscess Of The Trunk - Groin 08/08/2009 VIVI MANAGER SPECIALTY, LUZ 682.2 Skin Abscess Of The Trunk - Groin 08/08/2009 MICHAEL RODRIGUEZ DO K 682.2 Skin Abscess Of The Trunk - Groin 08/08/2009 VIVI MANAGER SPECIALTY, LUZ 682.2 Skin Abscess Of The Trunk - Groin 08/08/2009 JHOAN PACE, RAUDEL S 682.2 Skin Abscess Of The Trunk - Groin 08/10/2009 MICHAEL RODRIGUEZ DO 682.9 Cellulitis And Abscess Of Unspecified Sites 08/10/2009 ERICA THAO MD 682.9 Cellulitis And Abscess Of Unspecified Sites 08/10/2009 ERICA THAO MD2.9 Cellulitis And Abscess Of Unspecified Sites 08/10/2009 ERICA THAO MD2.9 Cellulitis And Abscess Of Unspecified Sites 08/10/2009 MICHAEL RODRIGUEZ DO 682.9 Cellulitis And Abscess Of Unspecified Sites 08/10/2009 ERICA THAO MD 682.9 Cellulitis And Abscess Of Unspecified Sites 08/10/2009 MICHAEL RODRIGUEZ DO 682.9 Cellulitis And Abscess Of Unspecified Sites 08/10/2009 ERICA THAO MD2.9 Cellulitis And Abscess Of Unspecified Sites 08/10/2009 ERICA THAO MD2.9 Cellulitis And Abscess Of Unspecified Sites 08/10/2009 ERICA THAO MD2.9 Cellulitis And Abscess Of Unspecified Sites 08/10/2009 RAUDEL STAPLES APRN S 682.9 Cellulitis And Abscess Of Unspecified Sites 08/10/2009 ERICA THAO MD2.9 Cellulitis And Abscess Of Unspecified Sites 08/10/2009 HUERTER MD, ERICA 682.9 Cellulitis And Abscess Of Unspecified Sites 08/10/2009 JHOAN MANAGER SPECIALTYESMER UlloaA S 682.9 Cellulitis And Abscess Of Unspecified Sites 08/10/2009 MICHAEL RODRIGUEZ DO 682.9 Cellulitis And Abscess Of Unspecified Sites 08/10/2009 ERICA THAO MD 682.9 Cellulitis And Abscess Of Unspecified Sites 08/10/2009 ROSA ELENA ALANIS MD 682.9 Cellulitis And Abscess Of Unspecified Sites 08/10/2009 ERICA THAO MD 682.9 Cellulitis And Abscess Of Unspecified Sites 08/10/2009 JHOAN MANAGER SPECIALTYESMERA S 682.9 Cellulitis And Abscess Of Unspecified Sites 08/10/2009 JHOAN MANAGER SPECIALTYISELA UlloaNDA S 682.9 Cellulitis And Abscess Of Unspecified Sites 08/10/2009 MICHAEL RODRIGUEZ DO 682.9 Cellulitis And Abscess Of Unspecified Sites 08/10/2009 ESMER STAPLES APRNA S 682.9 Cellulitis And Abscess Of Unspecified Sites 08/10/2009 ERICA THAO MD 682.9 Cellulitis And Abscess Of Unspecified Sites 08/10/2009 JHOAN MANAGER SPECIALTYESMER UlolaA S 682.9 Cellulitis And Abscess Of Unspecified Sites 08/10/2009 LUZ TRINIDAD APRN 682.9 Cellulitis And Abscess Of Unspecified Sites 08/10/2009 LUZ TRINIDAD APRN 682.9 Cellulitis And Abscess Of Unspecified Sites 08/10/2009 MICHAEL RODRIGUEZ DO 682.9 Cellulitis And Abscess Of Unspecified Sites 08/10/2009 LUZ TRINIDAD APRN 682.9 Cellulitis And Abscess Of Unspecified Sites 08/10/2009 ESMER STAPLES APRNA S 682.9 Cellulitis And Abscess Of Unspecified Sites 02/27/2010 Ot 041.3 02/27/2010 Ot 250.02 02/27/2010 Ot 272.4 02/27/2010 Ot 276.8 02/27/2010 Ot 401.0 02/27/2010 Ot 412 02/27/2010 Ot 414.01 02/27/2010 Ot 428.0 02/27/2010 Ot 493.90 02/27/2010 Ot 553.3 02/27/2010 Ot 599.0 02/27/2010 Ot 715.90 02/27/2010 Ot V10.3 03/29/2010 MICHAEL RODRIGUEZ DO 729.1 Myalgia And Myositis, Unspecified 03/29/2010 ERICA THAO MD 729.1 Myalgia And Myositis, Unspecified 03/29/2010 ERICA THAO MD 729.1 Myalgia And Myositis, Unspecified 03/29/2010 ERICA THAO MD9.1 Myalgia And Myositis, Unspecified 03/29/2010 MICHAEL RODRIGUEZ DO 729.1 Myalgia And Myositis, Unspecified 03/29/2010 ERICA THAO MD9.1 Myalgia And Myositis, Unspecified 03/29/2010 MICHAEL RODRIGUEZ DO 729.1 Myalgia And Myositis, Unspecified 03/29/2010 ERICA THAO MD9.1 Myalgia And Myositis, Unspecified 03/29/2010 ERICA THAO MD9.1 Myalgia And Myositis, Unspecified 03/29/2010 ERICA THAO MD 729.1 Myalgia And Myositis, Unspecified 03/29/2010 RAUDEL STAPLES APRN 729.1 Myalgia And Myositis, Unspecified 03/29/2010 ERICA THAO MD9.1 Myalgia And Myositis, Unspecified 03/29/2010 ERICA THAO MD9.1 Myalgia And Myositis, Unspecified 03/29/2010 RAUDEL STAPLES APRN 729.1 Myalgia And Myositis, Unspecified 03/29/2010 MICHAEL RODRIGUEZ DO 729.1 Myalgia And Myositis, Unspecified 03/29/2010 ERICA THAO MD9.1 Myalgia And Myositis, Unspecified 03/29/2010 ROSA ELENA ALANIS MD 729.1 Myalgia And Myositis, Unspecified 03/29/2010 ERICA THAO MD 729.1 Myalgia And Myositis, Unspecified 03/29/2010 JHOAN MANAGER SPECIALTY, RAUDEL S 729.1 Myalgia And Myositis, Unspecified 03/29/2010 JHOAN MANAGER SPECIALTY, RAUDEL S 729.1 Myalgia And Myositis, Unspecified 03/29/2010 MICHAEL RODRIGUEZ DO 729.1 Myalgia And Myositis, Unspecified 03/29/2010 JHOAN MANAGER SPECIALTY, RAUDEL S 729.1 Myalgia And Myositis, Unspecified 03/29/2010 ERICA THAO MD 729.1 Myalgia And Myositis, Unspecified 03/29/2010 JHOAN MANAGER SPECIALTY, RAUDEL S 729.1 Myalgia And Myositis, Unspecified 03/29/2010 VIVI MANAGER SPECIALTY, LUZ 729.1 Myalgia And Myositis, Unspecified 03/29/2010 VIVI MANAGER SPECIALTY, LUZ 729.1 Myalgia And Myositis, Unspecified 03/29/2010 MICHAEL RODRIGUEZ DO 729.1 Myalgia And Myositis, Unspecified 03/29/2010 VIVI MANAGER SPECIALTY, LUZ 729.1 Myalgia And Myositis, Unspecified 03/29/2010 JHOAN MANAGER SPECIALTY, RAUDEL S 729.1 Myalgia And Myositis, Unspecified 04/12/2010 MICHAEL RODRIGUEZ DO 443.9 PERIPHERAL VASCULAR DISEASE, UNSPECIFIED 04/12/2010 ERICA THAO MD 443.9 PERIPHERAL VASCULAR DISEASE, UNSPECIFIED 04/12/2010 ERICA THAO MD 443.9 PERIPHERAL VASCULAR DISEASE, UNSPECIFIED 04/12/2010 ERICA THAO MD3.9 PERIPHERAL VASCULAR DISEASE, UNSPECIFIED 04/12/2010 MICHAEL RODRIGUEZ DO 443.9 PERIPHERAL VASCULAR DISEASE, UNSPECIFIED 04/12/2010 ERICA THAO MD 443.9 PERIPHERAL VASCULAR DISEASE, UNSPECIFIED 04/12/2010 MICHAEL RODRIGUEZ DO 443.9 PERIPHERAL VASCULAR DISEASE, UNSPECIFIED 04/12/2010 ERICA THAO MD 443.9 PERIPHERAL VASCULAR DISEASE, UNSPECIFIED 04/12/2010 ERICA THAO MD 443.9 PERIPHERAL VASCULAR DISEASE, UNSPECIFIED 04/12/2010 ERICA THAO MD 443.9 PERIPHERAL VASCULAR DISEASE, UNSPECIFIED 04/12/2010 RAUDEL STAPLES APRN S 443.9 PERIPHERAL VASCULAR DISEASE, UNSPECIFIED 04/12/2010 ERICA THAO MD 443.9 PERIPHERAL VASCULAR DISEASE, UNSPECIFIED 04/12/2010 ERICA THAO MD 443.9 PERIPHERAL VASCULAR DISEASE, UNSPECIFIED 04/12/2010 RAUDEL STAPLES APRN S 443.9 PERIPHERAL VASCULAR DISEASE, UNSPECIFIED 04/12/2010 MICHAEL RODRIGUEZ DO 443.9 PERIPHERAL VASCULAR DISEASE, UNSPECIFIED 04/12/2010 ERICA THAO MD 443.9 PERIPHERAL VASCULAR DISEASE, UNSPECIFIED 04/12/2010 ZEKE ALMODOVAR, ROSA ELENA Ulloa 443.9 PERIPHERAL VASCULAR DISEASE, UNSPECIFIED 04/12/2010 ERICA THAO MD 443.9 PERIPHERAL VASCULAR DISEASE, UNSPECIFIED 04/12/2010 RAUDEL STAPLES APRN S 443.9 PERIPHERAL VASCULAR DISEASE, UNSPECIFIED 04/12/2010 RAUDEL STAPLES APRN S 443.9 PERIPHERAL VASCULAR DISEASE, UNSPECIFIED 04/12/2010 MICHAEL RODRIGUEZ DO K 443.9 PERIPHERAL VASCULAR DISEASE, UNSPECIFIED 04/12/2010 RAUDEL STAPLES APRN S 443.9 PERIPHERAL VASCULAR DISEASE, UNSPECIFIED 04/12/2010 ERICA THAO MD 443.9 PERIPHERAL VASCULAR DISEASE, UNSPECIFIED 04/12/2010 RAUDEL STAPLES APRN S 443.9 PERIPHERAL VASCULAR DISEASE, UNSPECIFIED 04/12/2010 VIVI MANAGER SPECIALTY, LUZ 443.9 PERIPHERAL VASCULAR DISEASE, UNSPECIFIED 04/12/2010 VIVI MANAGER SPECIALTY, LUZ 443.9 PERIPHERAL VASCULAR DISEASE, UNSPECIFIED 04/12/2010 MICHAEL RODRIGUEZ DO K 443.9 PERIPHERAL VASCULAR DISEASE, UNSPECIFIED 04/12/2010 VIVI MANAGER SPECIALTY, LUZ 443.9 PERIPHERAL VASCULAR DISEASE, UNSPECIFIED 04/12/2010 RAUDEL STAPLES APRN S 443.9 PERIPHERAL VASCULAR DISEASE, UNSPECIFIED 05/15/2010 MICHAEL RODRIGUEZ DO K 272.4 HYPERLIPIDEMIA 05/15/2010 MICHAEL RODRIGUEZ DO K V58.69 Taking High-risk Medication 05/15/2010 ERICA THAO MD 272.4 HYPERLIPIDEMIA 05/15/2010 ERICA THAO MD V58.69 Taking High-risk Medication 05/15/2010 ERICA THAO MD 272.4 HYPERLIPIDEMIA 05/15/2010 ERICA THAO MD V58.69 Taking High-risk Medication 05/15/2010 ERICA THAO MD 272.4 HYPERLIPIDEMIA 05/15/2010 ERICA THAO MD V58.69 Taking High-risk Medication 05/15/2010 RODRIGUEZ DO, MICHAEL K 272.4 HYPERLIPIDEMIA 05/15/2010 RODRIGUEZ DO, MICHAEL K V58.69 Taking High-risk Medication 05/15/2010 ERICA THAO MD 272.4 HYPERLIPIDEMIA 05/15/2010 ERICA THAO MD V58.69 Taking High-risk Medication 05/15/2010 RODRIGUEZ DO, MICHAEL K 272.4 HYPERLIPIDEMIA 05/15/2010 RODRIGUEZ DO, MICHAEL K V58.69 Taking High-risk Medication 05/15/2010 ERICA THAO MD 272.4 HYPERLIPIDEMIA 05/15/2010 ERICA THAO MD V58.69 Taking High-risk Medication 05/15/2010 ERICA THAO MD 272.4 HYPERLIPIDEMIA 05/15/2010 ERICA THAO MD V58.69 Taking High-risk Medication 05/15/2010 ERICA THAO MD 272.4 HYPERLIPIDEMIA 05/15/2010 ERICA THAO MD V58.69 Taking High-risk Medication 05/15/2010 RAUDEL STAPLES APRN S 272.4 HYPERLIPIDEMIA 05/15/2010 RAUDEL STAPLES APRN S V58.69 Taking High-risk Medication 05/15/2010 ERICA THAO MD 272.4 HYPERLIPIDEMIA 05/15/2010 ERICA THAO MD V58.69 Taking High-risk Medication 05/15/2010 ERICA THAO MD 272.4 HYPERLIPIDEMIA 05/15/2010 ERICA THAO MD V58.69 Taking High-risk Medication 05/15/2010 RAUDEL STAPLES APRN S 272.4 HYPERLIPIDEMIA 05/15/2010 RAUDEL STAPLES APRN S V58.69 Taking High-risk Medication 05/15/2010 RODRIGUEZ DO, MICHAEL K 272.4 HYPERLIPIDEMIA 05/15/2010 RODRIGUEZ DO, MICHAEL K V58.69 Taking High-risk Medication 05/15/2010 ERICA THAO MD 272.4 HYPERLIPIDEMIA 05/15/2010 ERICA THAO MD V58.69 Taking High-risk Medication 05/15/2010 ROSA ELENA ALANIS MD N 272.4 HYPERLIPIDEMIA 05/15/2010 ROSA ELENA ALANIS MD N V58.69 Taking High-risk Medication 05/15/2010 ERICA THAO MD 272.4 HYPERLIPIDEMIA 05/15/2010 ERICA THAO MD V58.69 Taking High-risk Medication 05/15/2010 JHOAN MANAGER SPECIALTY, RAUDEL S 272.4 HYPERLIPIDEMIA 05/15/2010 JHOAN PACE RAUDEL S V58.69 Taking High-risk Medication 05/15/2010 JHOAN MANAGER SPECIALTY, RAUDEL S 272.4 HYPERLIPIDEMIA 05/15/2010 JHOAN MANAGER SPECIALTY, RAUDEL S V58.69 Taking High-risk Medication 05/15/2010 RODRIGUEZ DO, MICHAEL K 272.4 HYPERLIPIDEMIA 05/15/2010 RODRIGUEZ DO, MICHAEL K V58.69 Taking High-risk Medication 05/15/2010 JHOAN MANAGER SPECIALTY, RAUDEL S 272.4 HYPERLIPIDEMIA 05/15/2010 JHOAN PACE RAUDEL S V58.69 Taking High-risk Medication 05/15/2010 ERICA THAO MD 272.4 HYPERLIPIDEMIA 05/15/2010 ERICA THAO MD V58.69 Taking High-risk Medication 05/15/2010 JHOAN PACE RAUDEL S 272.4 HYPERLIPIDEMIA 05/15/2010 JHOANMARIA M PACE RAUDEL S V58.69 Taking High-risk Medication 05/15/2010 VIVI MANAGER SPECIALTY, LUZ 272.4 HYPERLIPIDEMIA 05/15/2010 VIVI MANAGER SPECIALTY, LUZ V58.69 Taking High-risk Medication 05/15/2010 VIVI MANAGER SPECIALTY, LUZ 272.4 HYPERLIPIDEMIA 05/15/2010 VIVI MANAGER SPECIALTY, LUZ V58.69 Taking High-risk Medication 05/15/2010 RODRIGUEZ DO, MICHAEL K 272.4 HYPERLIPIDEMIA 05/15/2010 RODRIGUEZ DO, MICHAEL K V58.69 Taking High-risk Medication 05/15/2010 VIVI MANAGER SPECIALTY, LUZ 272.4 HYPERLIPIDEMIA 05/15/2010 VIVI MANAGER SPECIALTY, LUZ V58.69 Taking High-risk Medication 05/15/2010 JHOAN MANAGER SPECIALTY, RAUDEL S 272.4 HYPERLIPIDEMIA 05/15/2010 JHOAN MANAGER SPECIALTY, RAUDEL S V58.69 Taking High-risk Medication 08/02/2010 RODRIGUEZ DO, MICHAEL K 401.1 ESSENTIAL HYPERTENSION BENIGN 08/02/2010 ERICA THAO MD 401.1 ESSENTIAL HYPERTENSION BENIGN 08/02/2010 ERICA THAO MD 401.1 ESSENTIAL HYPERTENSION BENIGN 08/02/2010 ERICA THAO MD 401.1 ESSENTIAL HYPERTENSION BENIGN 08/02/2010 RODRIGUEZ , MICHAEL K 401.1 ESSENTIAL HYPERTENSION BENIGN 08/02/2010 ERICA THAO MD 401.1 ESSENTIAL HYPERTENSION BENIGN 08/02/2010 MICHAEL MCKENNA, MICHAEL K 401.1 ESSENTIAL HYPERTENSION BENIGN 08/02/2010 ERICA THAO MD 401.1 ESSENTIAL HYPERTENSION BENIGN 08/02/2010 ERICA THAO MD 401.1 ESSENTIAL HYPERTENSION BENIGN 08/02/2010 ERICA THAO MD 401.1 ESSENTIAL HYPERTENSION BENIGN 08/02/2010 JHOAN PACE, RAUDEL S 401.1 ESSENTIAL HYPERTENSION BENIGN 08/02/2010 ERICA THAO MD 401.1 ESSENTIAL HYPERTENSION BENIGN 08/02/2010 ERICA THAO MD 401.1 ESSENTIAL HYPERTENSION BENIGN 08/02/2010 JHOAN PACE, RAUDEL S 401.1 ESSENTIAL HYPERTENSION BENIGN 08/02/2010 MICHAEL MCKENNA, MICHAEL K 401.1 ESSENTIAL HYPERTENSION BENIGN 08/02/2010 ERICA THAO MD 401.1 ESSENTIAL HYPERTENSION BENIGN 08/02/2010 ZEKE ALMODOVAR, ROSA ELENA Ull[place] 401.1 ESSENTIAL HYPERTENSION BENIGN 08/02/2010 ERICA THAO MD 401.1 ESSENTIAL HYPERTENSION BENIGN 08/02/2010 JHOAN PACE, RAUDEL S 401.1 ESSENTIAL HYPERTENSION BENIGN 08/02/2010 JHOAN PACE, RAUDEL S 401.1 ESSENTIAL HYPERTENSION BENIGN 08/02/2010 RODRIGUEZ DO, MICHAEL K 401.1 ESSENTIAL HYPERTENSION BENIGN 08/02/2010 JHOAN PACE, RAUDEL S 401.1 ESSENTIAL HYPERTENSION BENIGN 08/02/2010 ERICA THAO MD 401.1 ESSENTIAL HYPERTENSION BENIGN 08/02/2010 JHOAN PACE, RAUDEL S 401.1 ESSENTIAL HYPERTENSION BENIGN 08/02/2010 VIVI MANAGER SPECIALTY, LUZ 401.1 ESSENTIAL HYPERTENSION BENIGN 08/02/2010 VIVI MANAGER SPECIALTY, LUZ 401.1 ESSENTIAL HYPERTENSION BENIGN 08/02/2010 RODRIGUEZ DO, MICHAEL K 401.1 ESSENTIAL HYPERTENSION BENIGN 08/02/2010 VIVI MANAGER SPECIALTY, LUZ 401.1 ESSENTIAL HYPERTENSION BENIGN 08/02/2010 RAUDEL STAPLES APRN 401.1 ESSENTIAL HYPERTENSION BENIGN 03/13/2011 Ot 250.00 DIAB SASHA WO COMPL, TYPE II OR UNSPEC TY 03/13/2011 Ot 401.9 HYPERTENSION NOS 03/13/2011 Ot 414.01 CORONARY ATHEROSCLEROSIS OF [place] CORON 03/13/2011 Ot 786.50 CHEST PAIN NOS 03/13/2011 Ot V10.3 HX OF BREAST MALIGNANCY 03/13/2011 Ot V45.71 ACQUIRED ABSENCE OF BREAST AND NIPPLE 03/13/2011 Ot V58.66 LONG-TERM (CURRENT) USE OF ASPIRIN 03/13/2011 Ot V58.67 LONG-TERM (CURRENT) USE OF INSULIN 03/13/2011 Ot V58.69 OTH MED,LT,CURRENT USE 05/01/2011 MICHAEL RODRIGUEZ DO 250.02 Diabetes Ii Uncontrolled (uncomplicated) 05/01/2011 MICHAEL RODRIGUEZ DO 704.8 Folliculitis 05/01/2011 MICHAEL RODRIGUEZ DO V04.81 Flu Dx (3 Yrs And Above, Im) 05/01/2011 ERICA THAO MD 250.02 Diabetes Ii Uncontrolled (uncomplicated) 05/01/2011 ERICA THAO MD.8 Folliculitis 05/01/2011 ERICA THAO MD V04.81 Flu Dx (3 Yrs And Above, Im) 05/01/2011 ERICA THAO MD.02 Diabetes Ii Uncontrolled (uncomplicated) 05/01/2011 ERICA THAO MD.8 Folliculitis 05/01/2011 ERICA THAO MD V04.81 Flu Dx (3 Yrs And Above, Im) 05/01/2011 ERICA THAO MD.02 Diabetes Ii Uncontrolled (uncomplicated) 05/01/2011 ERICA THAO MD.8 Folliculitis 05/01/2011 ERICA THAO MD V04.81 Flu Dx (3 Yrs And Above, Im) 05/01/2011 MICHAEL RODRIGUEZ DO 250.02 Diabetes Ii Uncontrolled (uncomplicated) 05/01/2011 MICHAEL RODRIGUEZ DO 704.8 Folliculitis 05/01/2011 MICHAEL RODRIGUEZ DO V04.81 Flu Dx (3 Yrs And Above, Im) 05/01/2011 HUERTER MD, ERICA 250.02 Diabetes Ii Uncontrolled (uncomplicated) 05/01/2011 ERICA THAO MD 704.8 Folliculitis 05/01/2011 ERICA THAO MD V04.81 Flu Dx (3 Yrs And Above, Im) 05/01/2011 MICHAEL MCKENNA MICHAEL K 250.02 Diabetes Ii Uncontrolled (uncomplicated) 05/01/2011 MICHAEL MCKENNA MICHAEL K 704.8 Folliculitis 05/01/2011 MICHAEL MCKENNA MICHAEL K V04.81 Flu Dx (3 Yrs And Above, Im) 05/01/2011 ERICA THAO MD 250.02 Diabetes Ii Uncontrolled (uncomplicated) 05/01/2011 ERICA THAO MD 70Lucy.8 Folliculitis 05/01/2011 ERICA THAO MD V04.81 Flu Dx (3 Yrs And Above, Im) 05/01/2011 ERICA THAO MD.02 Diabetes Ii Uncontrolled (uncomplicated) 05/01/2011 ERICA THAO MD.8 Folliculitis 05/01/2011 ERICA THAO MD V04.81 Flu Dx (3 Yrs And Above, Im) 05/01/2011 ERICA THAO MD.02 Diabetes Ii Uncontrolled (uncomplicated) 05/01/2011 ERICA THAO MD.8 Folliculitis 05/01/2011 ERICA THAO MD V04.81 Flu Dx (3 Yrs And Above, Im) 05/01/2011 RAUDEL STAPLES APRN S 250.02 Diabetes Ii Uncontrolled (uncomplicated ) 05/01/2011 RAUDEL STAPLES APRN S 704.8 Folliculitis 05/01/2011 RAUDEL STAPLES APRN S V04.81 Flu Dx (3 Yrs And Above, Im) 05/01/2011 ERICA THAO MD 250.02 Diabetes Ii Uncontrolled (uncomplicated) 05/01/2011 ERICA THAO MD.8 Folliculitis 05/01/2011 ERICA THAO MD V04.81 Flu Dx (3 Yrs And Above, Im) 05/01/2011 ERICA THAO MD 250.02 Diabetes Ii Uncontrolled (uncomplicated) 05/01/2011 ERICA THAO MD.8 Folliculitis 05/01/2011 ERICA THAO MD V04.81 Flu Dx (3 Yrs And Above, Im) 05/01/2011 JHOAN PACE, RAUDEL S 250.02 Diabetes Ii Uncontrolled (uncomplicated ) 05/01/2011 JHOAN MANAGER SPECIALTY, RAUDEL S 704.8 Folliculitis 05/01/2011 JHOAN MANAGER SPECIALTY, RAUDEL S V04.81 Flu Dx (3 Yrs And Above, Im) 05/01/2011 RODRIGUEZ DO MICHAEL K 250.02 Diabetes Ii Uncontrolled (uncomplicated) 05/01/2011 RODRIGUEZ DO MICHAEL K 704.8 Folliculitis 05/01/2011 RODRIGUEZ DO MICHAEL K V04.81 Flu Dx (3 Yrs And Above, Im) 05/01/2011 ERICA THAO MD 250.02 Diabetes Ii Uncontrolled (uncomplicated) 05/01/2011 ERICA THAO MD 704.8 Folliculitis 05/01/2011 ERICA THAO MD V04.81 Flu Dx (3 Yrs And Above, Im) 05/01/2011 ROSA ELENA ALANIS MD 250.02 Diabetes Ii Uncontrolled (uncomplicated) 05/01/2011 ROSA ELENA ALANIS MD 704.8 Folliculitis 05/01/2011 ROSA ELENA ALANIS MD V04.81 Flu Dx (3 Yrs And Above, Im) 05/01/2011 ERICA THAO MD 250.02 Diabetes Ii Uncontrolled (uncomplicated) 05/01/2011 ERICA THAO MD 704.8 Folliculitis 05/01/2011 ERICA THAO MD V04.81 Flu Dx (3 Yrs And Above, Im) 05/01/2011 JHOAN PACE RAUDEL S 250.02 Diabetes Ii Uncontrolled (uncomplicated ) 05/01/2011 JHOAN PACE, RAUDEL S 704.8 Folliculitis 05/01/2011 JHOAN PACE, RAUDEL S V04.81 Flu Dx (3 Yrs And Above, Im) 05/01/2011 JOHAN PACE, RAUDEL S 250.02 Diabetes Ii Uncontrolled (uncomplicated ) 05/01/2011 JHOAN MANAGER SPECIALTY, RAUDEL S 704.8 Folliculitis 05/01/2011 JHOAN MANAGER SPECIALTY, RAUDEL S V04.81 Flu Dx (3 Yrs And Above, Im) 05/01/2011 MICHAEL DO MICHAEL K 250.02 Diabetes Ii Uncontrolled (uncomplicated) 05/01/2011 RODRIGUEZ DOCARISSAA K 704.8 Folliculitis 05/01/2011 CARISSA RODRIGUEZ DOA K V04.81 Flu Dx (3 Yrs And Above, Im) 05/01/2011 ESMER STAPLES APRNA S 250.02 Diabetes Ii Uncontrolled (uncomplicated ) 05/01/2011 JHOAN MANAGER SPECIALTY, RAUDEL S 704.8 Folliculitis 05/01/2011 ISELA STAPLES APRNNDA S V04.81 Flu Dx (3 Yrs And Above, Im) 05/01/2011 ERICA THAO MD 250.02 Diabetes Ii Uncontrolled (uncomplicated) 05/01/2011 ERIAC THAO MD 704.8 Folliculitis 05/01/2011 ERICA THAO MD V04.81 Flu Dx (3 Yrs And Above, Im) 05/01/2011 ESMER STAPLES APRNA S 250.02 Diabetes Ii Uncontrolled (uncomplicated ) 05/01/2011 ESMER STAPLES APRNA S 704.8 Folliculitis 05/01/2011 ISELA STAPLES APRNNDA S V04.81 Flu Dx (3 Yrs And Above, Im) 05/01/2011 MICAH TRINIDAD APRNETTE 250.02 Diabetes Ii Uncontrolled (uncomplicated) 05/01/2011 VIVI PACE LUZ 704.8 Folliculitis 05/01/2011 VIVI PACE LUZ V04.81 Flu Dx (3 Yrs And Above, Im) 05/01/2011 MICAH TRINIDAD APRNETTE 250.02 Diabetes Ii Uncontrolled (uncomplicated) 05/01/2011 VIVI PACE LUZ 704.8 Folliculitis 05/01/2011 VIVI MANAGER SPECIALTY, LUZ V04.81 Flu Dx (3 Yrs And Above, Im) 05/01/2011 MICHAEL RODRIGUEZ DO K 250.02 Diabetes Ii Uncontrolled (uncomplicated) 05/01/2011 MICHAEL RODRIGUEZ DO K 704.8 Folliculitis 05/01/2011 CARISSA RODRIGUEZ DOA K V04.81 Flu Dx (3 Yrs And Above, Im) 05/01/2011 VIVI PACE LUZ 250.02 Diabetes Ii Uncontrolled (uncomplicated) 05/01/2011 VIVI PACE LUZ 704.8 Folliculitis 05/01/2011 LUZ TRINIDAD APRN V04.81 Flu Dx (3 Yrs And Above, Im) 05/01/2011 JHOAN MANAGER SPECIALTY, RAUDEL S 250.02 Diabetes Ii Uncontrolled (uncomplicated ) 05/01/2011 JHOAN MANAGER SPECIALTY, RAUDEL S 704.8 Folliculitis 05/01/2011 JHOAN MANAGER SPECIALTY, RAUDEL S V04.81 Flu Dx (3 Yrs And Above, Im) 08/14/2011 MICHAEL RODRIGUEZ DO 466.0 Bronchitis, Acute 08/14/2011 ERICA THAO MD 466.0 Bronchitis, Acute 08/14/2011 ERICA THAO MD 466.0 Bronchitis, Acute 08/14/2011 ERICA THAO MD 466.0 Bronchitis, Acute 08/14/2011 MICHAEL RODRIGUEZ DO 466.0 Bronchitis, Acute 08/14/2011 ERICA THAO MD 466.0 Bronchitis, Acute 08/14/2011 MICHAEL RODRIGUEZ DO 466.0 Bronchitis, Acute 08/14/2011 ERICA THAO MD 466.0 Bronchitis, Acute 08/14/2011 ERICA THAO MD 466.0 Bronchitis, Acute 08/14/2011 ERICA THAO MD 466.0 Bronchitis, Acute 08/14/2011 RAUDEL STAPLES APRN S 466.0 Bronchitis, Acute 08/14/2011 ERICA THAO MD 466.0 Bronchitis, Acute 08/14/2011 ERICA THAO MD 466.0 Bronchitis, Acute 08/14/2011 ESMER STAPLES APRNA S 466.0 Bronchitis, Acute 08/14/2011 MICHAEL RODRIGUEZ DO K 466.0 Bronchitis, Acute 08/14/2011 ERICA THAO MD 466.0 Bronchitis, Acute 08/14/2011 ZEKE ALMODOVAR, ROSA ELENA Ulloa 466.0 Bronchitis, Acute 08/14/2011 ERICA THAO MD 466.0 Bronchitis, Acute 08/14/2011 JHOAN PACE RAUDEL S 466.0 Bronchitis, Acute 08/14/2011 JHOAN PACE RAUDEL S 466.0 Bronchitis, Acute 08/14/2011 MICHAEL RODRIGUEZ DO K 466.0 Bronchitis, Acute 08/14/2011 JHOAN PACE RAUDEL S 466.0 Bronchitis, Acute 08/14/2011 ERICA THAO MD 466.0 Bronchitis, Acute 08/14/2011 JHOAN MANAGER SPECIALTY, RAUDEL S 466.0 Bronchitis, Acute 08/14/2011 VIVI MANAGER SPECIALTY, LUZ 466.0 Bronchitis, Acute 08/14/2011 VIVI MANAGER SPECIALTY, LUZ 466.0 Bronchitis, Acute 08/14/2011 MICHAEL RODRIGUEZ DO K 466.0 Bronchitis, Acute 08/14/2011 VIVI MANAGER SPECIALTY, LUZ 466.0 Bronchitis, Acute 08/14/2011 JHOAN MANAGER SPECIALTY, RAUDEL S 466.0 Bronchitis, Acute 08/22/2011 MICHAEL RODRIGUEZ DO K 250.40 DIABETES WITH RENAL MANIFESTATIONS 08/22/2011 ERICA THAO MD 250.40 DIABETES WITH RENAL MANIFESTATIONS 08/22/2011 ERICA THAO MD 250.40 DIABETES WITH RENAL MANIFESTATIONS 08/22/2011 ERICA THAO MD 250.40 DIABETES WITH RENAL MANIFESTATIONS 08/22/2011 MICHAEL RODRIGUEZ DO K 250.40 DIABETES WITH RENAL MANIFESTATIONS 08/22/2011 ERICA THAO MD 250.40 DIABETES WITH RENAL MANIFESTATIONS 08/22/2011 MICHAEL RODRIGUEZ DO K 250.40 DIABETES WITH RENAL MANIFESTATIONS 08/22/2011 ERICA THAO MD 250.40 DIABETES WITH RENAL MANIFESTATIONS 08/22/2011 ERICA THAO MD 250.40 DIABETES WITH RENAL MANIFESTATIONS 08/22/2011 ERICA THAO MD 250.40 DIABETES WITH RENAL MANIFESTATIONS 08/22/2011 JHOAN PACE, RAUDEL S 250.40 DIABETES WITH RENAL MANIFESTATIONS 08/22/2011 ERICA THAO MD 250.40 DIABETES WITH RENAL MANIFESTATIONS 08/22/2011 ERICA THAO MD 250.40 DIABETES WITH RENAL MANIFESTATIONS 08/22/2011 JHOAN PACE, RAUDEL S 250.40 DIABETES WITH RENAL MANIFESTATIONS 08/22/2011 MICHAEL RODRIGUEZ DO K 250.40 DIABETES WITH RENAL MANIFESTATIONS 08/22/2011 ERICA THAO MD 250.40 DIABETES WITH RENAL MANIFESTATIONS 08/22/2011 ROSA ELENA ALANIS MD 250.40 DIABETES WITH RENAL MANIFESTATIONS 08/22/2011 ERICA THAO MD 250.40 DIABETES WITH RENAL MANIFESTATIONS 08/22/2011 JHOAN MANAGER SPECIALTY, RAUDEL S 250.40 DIABETES WITH RENAL MANIFESTATIONS 08/22/2011 JHOAN MANAGER SPECIALTY, RAUDEL S 250.40 DIABETES WITH RENAL MANIFESTATIONS 08/22/2011 MICHAEL RODRIGUEZ DO K 250.40 DIABETES WITH RENAL MANIFESTATIONS 08/22/2011 RAUDEL STAPLES APRN 250.40 DIABETES WITH RENAL MANIFESTATIONS 08/22/2011 ERICA THAO MD 250.40 DIABETES WITH RENAL MANIFESTATIONS 08/22/2011 RAUDEL STAPLES APRN 250.40 DIABETES WITH RENAL MANIFESTATIONS 08/22/2011 LUZ TRINIDAD APRN 250.40 DIABETES WITH RENAL MANIFESTATIONS 08/22/2011 LUZ TRINIDAD APRN 250.40 DIABETES WITH RENAL MANIFESTATIONS 08/22/2011 MICHAEL RODRIGUEZ DO K 250.40 DIABETES WITH RENAL MANIFESTATIONS 08/22/2011 LUZ TRINIDAD APRN 250.40 DIABETES WITH RENAL MANIFESTATIONS 08/22/2011 RAUDEL STAPLES APRN 250.40 DIABETES WITH RENAL MANIFESTATIONS 11/23/2011 CARISSA RODRIGUEZ DOA K 110.1 Onychomycosis 11/23/2011 CARISSA RODRIGUEZ DOA K 356.9 NEUROPATHY 11/23/2011 CARISSA RODRIGUEZ DOA K 703.8 Onychocryptosis 11/23/2011 CARISSA RODRIGUEZ DOA K 736.72 Equinus Deformity 11/23/2011 ERICA THAO MD 110.1 Onychomycosis 11/23/2011 ERICA THAO MD.9 NEUROPATHY 11/23/2011 ERICA THAO MD3.8 Onychocryptosis 11/23/2011 ERICA THAO MD 736.72 Equinus Deformity 11/23/2011 ERICA THAO MD 110.1 Onychomycosis 11/23/2011 ERICA THAO MD 356.9 NEUROPATHY 11/23/2011 ERICA THAO MD 703.8 Onychocryptosis 11/23/2011 ERICA THAO MD 736.72 Equinus Deformity 11/23/2011 ERICA THAO MD 110.1 Onychomycosis 11/23/2011 ERICA THAO MD 356.9 NEUROPATHY 11/23/2011 ERICA THAO MD 703.8 Onychocryptosis 11/23/2011 ERICA THAO MD 736.72 Equinus Deformity 11/23/2011 MICHAEL MCKENNA MICHAEL K 110.1 Onychomycosis 11/23/2011 MICHAEL MCKENNA MICHAEL K 356.9 NEUROPATHY 11/23/2011 MICHAEL MCKENNA, MICHAEL K 703.8 Onychocryptosis 11/23/2011 RODRIGUEZ DO, MICHAEL K 736.72 Equinus Deformity 11/23/2011 ERICA THAO MD 110.1 Onychomycosis 11/23/2011 KEESHA ALMODOVAR, ERICA 356.9 NEUROPATHY 11/23/2011 ERICA THAO MD 703.8 Onychocryptosis 11/23/2011 ERICA THAO MD 736.72 Equinus Deformity 11/23/2011 RODRIGUEZ DO, MICHAEL K 110.1 Onychomycosis 11/23/2011 RODRIGUEZ DO, MICHAEL K 356.9 NEUROPATHY 11/23/2011 RODRIGUEZ DO, MICHAEL K 703.8 Onychocryptosis 11/23/2011 RODRIGUEZ , MICHAEL K 736.72 Equinus Deformity 11/23/2011 ERICA THAO MD 110.1 Onychomycosis 11/23/2011 ERICA THAO MD 356.9 NEUROPATHY 11/23/2011 ERICA THAO MD 70Vitor.8 Onychocryptosis 11/23/2011 ERICA THAO MD 736.72 Equinus Deformity 11/23/2011 ERICA THAO MD 110.1 Onychomycosis 11/23/2011 ERICA THAO MD.9 NEUROPATHY 11/23/2011 ERICA THAO MD.8 Onychocryptosis 11/23/2011 ERICA THAO MD 736.72 Equinus Deformity 11/23/2011 ERICA THAO MD 110.1 Onychomycosis 11/23/2011 ERICA THAO MD 356.9 NEUROPATHY 11/23/2011 EIRCA THAO MD.8 Onychocryptosis 11/23/2011 ERICA THAO MD 736.72 Equinus Deformity 11/23/2011 RAUDEL STAPLES APRN S 110.1 Onychomycosis 11/23/2011 RAUDEL STAPLES APRN S 356.9 NEUROPATHY 11/23/2011 RAUDEL STAPLES APRN S 703.8 Onychocryptosis 11/23/2011 RAUDEL STAPLES APRN S 736.72 Equinus Deformity 11/23/2011 ERICA THAO MD 110.1 Onychomycosis 11/23/2011 ERICA THAO MD 356.9 NEUROPATHY 11/23/2011 ERICA THAO MD 703.8 Onychocryptosis 11/23/2011 ERICA THAO MD 736.72 Equinus Deformity 11/23/2011 ERICA THAO MD 110.1 Onychomycosis 11/23/2011 ERICA THAO MD 356.9 NEUROPATHY 11/23/2011 ERICA THAO MD 703.8 Onychocryptosis 11/23/2011 ERICA THAO MD 736.72 Equinus Deformity 11/23/2011 ESMER STAPLES APRNA S 110.1 Onychomycosis 11/23/2011 RAUDEL STAPLES APRN S 356.9 NEUROPATHY 11/23/2011 ESMER STAPLES APRNA S 703.8 Onychocryptosis 11/23/2011 ESMER STAPLES APRNA S 736.72 Equinus Deformity 11/23/2011 RODRIGUEZ DO, MICHAEL K 110.1 Onychomycosis 11/23/2011 RODRIGUEZ DO, MICHAEL K 356.9 NEUROPATHY 11/23/2011 RODRIGUEZ DO, MICHAEL K 703.8 Onychocryptosis 11/23/2011 RODRIGUEZ DO, MICHAEL K 736.72 Equinus Deformity 11/23/2011 ERICA THAO MD 110.1 Onychomycosis 11/23/2011 ERICA THAO MD 356.9 NEUROPATHY 11/23/2011 ERICA THAO MD 703.8 Onychocryptosis 11/23/2011 ERICA THAO MD 736.72 Equinus Deformity 11/23/2011 ROSA ELENA ALANIS MD 110.1 Onychomycosis 11/23/2011 ROSA ELENA ALANIS MD 356.9 NEUROPATHY 11/23/2011 ROSA ELENA ALANIS MD 703.8 Onychocryptosis 11/23/2011 ROSA ELENA ALANIS MD 736.72 Equinus Deformity 11/23/2011 ERICA THAO MD 110.1 Onychomycosis 11/23/2011 ERICA THAO MD 356.9 NEUROPATHY 11/23/2011 ERICA THAO MD 703.8 Onychocryptosis 11/23/2011 ERICA THAO MD 736.72 Equinus Deformity 11/23/2011 JHOAN GILMOREN, RAUDEL S 110.1 Onychomycosis 11/23/2011 JHOAN GILMOREN, RAUDEL S 356.9 NEUROPATHY 11/23/2011 JHOAN MANAGER SPECIALTY, RAUDEL S 703.8 Onychocryptosis 11/23/2011 JHOAN GILMOREN, RAUDEL S 736.72 Equinus Deformity 11/23/2011 JHOAN GILMOREN, RAUDEL S 110.1 Onychomycosis 11/23/2011 JHOAN GILMOREN, RAUDEL S 356.9 NEUROPATHY 11/23/2011 JHOAN GILMOREN, RAUDEL S 703.8 Onychocryptosis 11/23/2011 JHOAN GILMOREN, RAUDEL S 736.72 Equinus Deformity 11/23/2011 RODRIGUEZ DO, MICHAEL K 110.1 Onychomycosis 11/23/2011 RODRIGUEZ DO, MICHAEL K 356.9 NEUROPATHY 11/23/2011 RODRIGUEZ DO, MICHAEL K 703.8 Onychocryptosis 11/23/2011 RODRIGUEZ DO, MICHAEL K 736.72 Equinus Deformity 11/23/2011 JHOAN GILMOREN, RAUDEL S 110.1 Onychomycosis 11/23/2011 JHOAN PACE, RAUDEL S 356.9 NEUROPATHY 11/23/2011 JHOAN PACE, RAUDEL S 703.8 Onychocryptosis 11/23/2011 JHOAN PACE, RAUDEL S 736.72 Equinus Deformity 11/23/2011 ERICA THAO MD 110.1 Onychomycosis 11/23/2011 ERICA THAO MD 356.9 NEUROPATHY 11/23/2011 ERICA THAO MD 703.8 Onychocryptosis 11/23/2011 ERICA THAO MD 736.72 Equinus Deformity 11/23/2011 JHOAN PACE, RAUDEL S 110.1 Onychomycosis 11/23/2011 JHOAN PACE, RAUDEL S 356.9 NEUROPATHY 11/23/2011 JHOAN PACE, RAUDEL S 703.8 Onychocryptosis 11/23/2011 JHOAN PACE, RAUDEL S 736.72 Equinus Deformity 11/23/2011 VIVI MANAGER SPECIALTY, LUZ 110.1 Onychomycosis 11/23/2011 VIVI MANAGER SPECIALTY, LUZ 356.9 NEUROPATHY 11/23/2011 VIVI MANAGER SPECIALTY, LUZ 703.8 Onychocryptosis 11/23/2011 VIVI MANAGER SPECIALTY, LUZ 736.72 Equinus Deformity 11/23/2011 VIVI MANAGER SPECIALTY, LUZ 110.1 Onychomycosis 11/23/2011 VIVI MANAGER SPECIALTY, LUZ 356.9 NEUROPATHY 11/23/2011 VIVI MANAGER SPECIALTY, LUZ 703.8 Onychocryptosis 11/23/2011 VIVI MANAGER SPECIALTY, LUZ 736.72 Equinus Deformity 11/23/2011 RODRIGUEZ DO, MICHAEL K 110.1 Onychomycosis 11/23/2011 RODRIGUEZ DO, MICHAEL K 356.9 NEUROPATHY 11/23/2011 RODRIGUEZ DO, MICHAEL K 703.8 Onychocryptosis 11/23/2011 RODRIGUEZ DO, MICHAEL K 736.72 Equinus Deformity 11/23/2011 VIVI MANAGER SPECIALTY, LUZ 110.1 Onychomycosis 11/23/2011 VIVI MANAGER SPECIALTY, LUZ 356.9 NEUROPATHY 11/23/2011 VIVI MANAGER SPECIALTY, LUZ 703.8 Onychocryptosis 11/23/2011 VIVI MANAGER SPECIALTY, LUZ 736.72 Equinus Deformity 11/23/2011 ESMER STAPLES APRNA S 110.1 Onychomycosis 11/23/2011 ESMER STAPLES APRNA S 356.9 NEUROPATHY 11/23/2011 ESMER STAPLES APRNA S 703.8 Onychocryptosis 11/23/2011 ESMER STAPLES APRNA S 736.72 Equinus Deformity 12/06/2011 Ot 250.00 DIAB SASHA WO COMPL, TYPE II OR UNSPEC TY 12/06/2011 Ot 272.4 HYPERLIPIDEMIA NEC/NOS 12/06/2011 Ot 276.8 HYPOPOTASSEMIA 12/06/2011 Ot 278.00 OBESITY, NOS 12/06/2011 Ot 401.9 HYPERTENSION NOS 12/06/2011 Ot 414.01 CORONARY ATHEROSCLEROSIS OF [place] CORON 12/06/2011 Ot 786.59 CHEST PAIN NEC 12/06/2011 Ot V85.41 BODY MASS INDEX 40.0-44.9, ADULT 12/07/2011 MICHAEL MCKENNA MICHAEL K 703.0 Ingrown Toenail (infection) 12/07/2011 ERICA THAO MD 703.0 Ingrown Toenail (infection) 12/07/2011 ERICA THAO MD 703.0 Ingrown Toenail (infection) 12/07/2011 ERICA THAO MD 703.0 Ingrown Toenail (infection) 12/07/2011 MICHAEL MCKENNA, MICHAEL K 703.0 Ingrown Toenail (infection) 12/07/2011 ERICA THAO MD 703.0 Ingrown Toenail (infection) 12/07/2011 MICHAEL MCKENNA, MICHAEL K 703.0 Ingrown Toenail (infection) 12/07/2011 ERICA THAO MD 703.0 Ingrown Toenail (infection) 12/07/2011 ERICA THAO MD 703.0 Ingrown Toenail (infection) 12/07/2011 ERICA THAO MD 703.0 Ingrown Toenail (infection) 12/07/2011 RAUDEL STAPLES APRN S 703.0 Ingrown Toenail (infection) 12/07/2011 ERICA THAO MD 703.0 Ingrown Toenail (infection) 12/07/2011 ERICA THAO MD 703.0 Ingrown Toenail (infection) 12/07/2011 RAUDEL STAPLES APRN S 703.0 Ingrown Toenail (infection) 12/07/2011 MICHAEL RODRIGUEZ DO K 703.0 Ingrown Toenail (infection) 12/07/2011 ERICA THAO MD 703.0 Ingrown Toenail (infection) 12/07/2011 ROSA ELENA ALANIS MD 703.0 Ingrown Toenail (infection) 12/07/2011 ERICA THAO MD 703.0 Ingrown Toenail (infection) 12/07/2011 RAUDEL STAPLES APRN S 703.0 Ingrown Toenail (infection) 12/07/2011 RAUDEL STAPLES APRN S 703.0 Ingrown Toenail (infection) 12/07/2011 CARISSA RODRIGUEZ DOA K 703.0 Ingrown Toenail (infection) 12/07/2011 RAUDEL STAPLES APRN S 703.0 Ingrown Toenail (infection) 12/07/2011 ERICA THAO MD 703.0 Ingrown Toenail (infection) 12/07/2011 RAUDEL STAPLES APRN S 703.0 Ingrown Toenail (infection) 12/07/2011 VIVI MANAGER SPECIALTY, LUZ 703.0 Ingrown Toenail (infection) 12/07/2011 VIVI MANAGER SPECIALTY, LUZ 703.0 Ingrown Toenail (infection) 12/07/2011 MICHAEL RODRIGUEZ DO K 703.0 Ingrown Toenail (infection) 12/07/2011 VIVI MANAGER SPECIALTY, LUZ 703.0 Ingrown Toenail (infection) 12/07/2011 RAUDEL STAPLES APRN S 703.0 Ingrown Toenail (infection) 03/18/2012 MICHAEL RODRIGUEZ DO 585.3 CHRONIC KIDNEY DISEASE STAGE III (MODERATE) 03/18/2012 MICHAEL RODRIGUEZ DO V03.82 Ppv23 (pneumovax) Dx 03/18/2012 ERICA THAO MD.3 CHRONIC KIDNEY DISEASE STAGE III (MODERATE) 03/18/2012 ERICA THAO MD V03.82 Ppv23 (pneumovax) Dx 03/18/2012 ERICA THAO MD.3 CHRONIC KIDNEY DISEASE STAGE III (MODERATE) 03/18/2012 ERICA THAO MD V03.82 Ppv23 (pneumovax) Dx 03/18/2012 ERICA THAO MD.3 CHRONIC KIDNEY DISEASE STAGE III (MODERATE) 03/18/2012 ERICA THAO MD V03.82 Ppv23 (pneumovax) Dx 03/18/2012 MICHAEL RODRIGUEZ DO 58Raul.3 CHRONIC KIDNEY DISEASE STAGE III (MODERATE) 03/18/2012 MICHAEL RODRIGUEZ DO V03.82 Ppv23 (pneumovax) Dx 03/18/2012 ERICA THAO MD.3 CHRONIC KIDNEY DISEASE STAGE III (MODERATE) 03/18/2012 ERICA THAO MD V03.82 Ppv23 (pneumovax) Dx 03/18/2012 MICHAEL RODRIGUEZ DO 585.3 CHRONIC KIDNEY DISEASE STAGE III (MODERATE) 03/18/2012 MICHAEL RODRIGUEZ DO V03.82 Ppv23 (pneumovax) Dx 03/18/2012 ERICA THAO MD5.3 CHRONIC KIDNEY DISEASE STAGE III (MODERATE) 03/18/2012 ERICA THAO MD V03.82 Ppv23 (pneumovax) Dx 03/18/2012 ERICA THAO MD.3 CHRONIC KIDNEY DISEASE STAGE III (MODERATE) 03/18/2012 ERICA THAO MD V03.82 Ppv23 (pneumovax) Dx 03/18/2012 ERICA THAO MD.3 CHRONIC KIDNEY DISEASE STAGE III (MODERATE) 03/18/2012 ERICA THAO MD V03.82 Ppv23 (pneumovax) Dx 03/18/2012 RAUDEL STAPLES APRN 585.3 CHRONIC KIDNEY DISEASE STAGE III ( MODERATE) 03/18/2012 RAUDEL STAPLES APRN V03.82 Ppv23 (pneumovax) Dx 03/18/2012 ERICA THAO MD.3 CHRONIC KIDNEY DISEASE STAGE III (MODERATE) 03/18/2012 ERICA THAO MD V03.82 Ppv23 (pneumovax) Dx 03/18/2012 ERICA THAO MD.3 CHRONIC KIDNEY DISEASE STAGE III (MODERATE) 03/18/2012 ERICA THAO MD V03.82 Ppv23 (pneumovax) Dx 03/18/2012 RAUDEL STAPLES APRN 58Raul.3 CHRONIC KIDNEY DISEASE STAGE III ( MODERATE) 03/18/2012 RAUDEL STAPLES APRN V03.82 Ppv23 (pneumovax) Dx 03/18/2012 RODRIGUEZ DO, MICHAEL K 585.3 CHRONIC KIDNEY DISEASE STAGE III (MODERATE) 03/18/2012 RODRIGUEZ DO, MICHAEL K V03.82 Ppv23 (pneumovax) Dx 03/18/2012 ERICA THAO MD.3 CHRONIC KIDNEY DISEASE STAGE III (MODERATE) 03/18/2012 ERICA THAO MD V03.82 Ppv23 (pneumovax) Dx 03/18/2012 ROSA ELENA ALANIS MD.3 CHRONIC KIDNEY DISEASE STAGE III (MODERATE ) 03/18/2012 ROSA ELENA ALANIS MD V03.82 Ppv23 (pneumovax) Dx 03/18/2012 HUERTER MD, ERICA 585.3 CHRONIC KIDNEY DISEASE STAGE III (MODERATE) 03/18/2012 ERICA THAO MD V03.82 Ppv23 (pneumovax) Dx 03/18/2012 RAUDEL STAPLES APRN 585.3 CHRONIC KIDNEY DISEASE STAGE III ( MODERATE) 03/18/2012 RAUDEL STAPLES APRN V03.82 Ppv23 (pneumovax) Dx 03/18/2012 RAUDEL STAPLES APRN 585.3 CHRONIC KIDNEY DISEASE STAGE III ( MODERATE) 03/18/2012 RAUDEL STAPLES APRN S V03.82 Ppv23 (pneumovax) Dx 03/18/2012 RODRIGUEZ DO, MICHAEL K 585.3 CHRONIC KIDNEY DISEASE STAGE III (MODERATE) 03/18/2012 RODRIGUEZ DO, MICHAEL K V03.82 Ppv23 (pneumovax) Dx 03/18/2012 RAUDEL STAPLES APRN 585.3 CHRONIC KIDNEY DISEASE STAGE III ( MODERATE) 03/18/2012 RAUDEL STAPLES APRN V03.82 Ppv23 (pneumovax) Dx 03/18/2012 ERICA THAO MD 585.3 CHRONIC KIDNEY DISEASE STAGE III (MODERATE) 03/18/2012 ERICA THAO MD V03.82 Ppv23 (pneumovax) Dx 03/18/2012 RAUDEL STAPLES APRN 585.3 CHRONIC KIDNEY DISEASE STAGE III ( MODERATE) 03/18/2012 RAUDEL STAPLES APRN V03.82 Ppv23 (pneumovax) Dx 03/18/2012 VIVI MANAGER SPECIALTYLUZ Ulloa 585.3 CHRONIC KIDNEY DISEASE STAGE III (MODERATE ) 03/18/2012 VIVI MANAGER SPECIALTY, LUZ V03.82 Ppv23 (pneumovax) Dx 03/18/2012 VIVI MANAGER SPECIALTY, LUZ 585.3 CHRONIC KIDNEY DISEASE STAGE III (MODERATE ) 03/18/2012 VIVI MANAGER SPECIALTY, LUZ V03.82 Ppv23 (pneumovax) Dx 03/18/2012 RODRIGUEZ DO MICHAEL K 585.3 CHRONIC KIDNEY DISEASE STAGE III (MODERATE) 03/18/2012 RODRIGUEZ DO, MICHAEL K V03.82 Ppv23 (pneumovax) Dx 03/18/2012 VIVI MANAGER SPECIALTY, LUZ 585.3 CHRONIC KIDNEY DISEASE STAGE III (MODERATE ) 03/18/2012 LUZ TRINIDAD APRN V03.82 Ppv23 (pneumovax) Dx 03/18/2012 RAUDEL STAPLES APRN 585.3 CHRONIC KIDNEY DISEASE STAGE III ( MODERATE) 03/18/2012 RAUDEL STAPLES APRN S V03.82 Ppv23 (pneumovax) Dx 04/09/2012 MICHAEL MCKENNACARISSAA K 414.00 CAD 04/09/2012 MICHAEL RODRIGUEZ DO K 428.0 Heart Failure Congestive 04/09/2012 KEESHA ALMODOVAR, ERICA 414.00 CAD 04/09/2012 KEESHA ALMODOVAR, ERICA 428.0 Heart Failure Congestive 04/09/2012 KEESHA ALMODOVAR, ERICA 414.00 CAD 04/09/2012 KEESHA ALMODOVAR, ERICA 428.0 Heart Failure Congestive 04/09/2012 KEESHA ALMODOVAR, ERICA 414.00 CAD 04/09/2012 KEESHA ALMODOVAR, ERICA 428.0 Heart Failure Congestive 04/09/2012 MICHAEL MCKENNAMICHAEL K 414.00 CAD 04/09/2012 MICHAEL MCKENNACARISSAA K 428.0 Heart Failure Congestive 04/09/2012 KEESHA ALMODOVAR, ERICA 414.00 CAD 04/09/2012 KEESHA ALMODOVAR, ERICA 428.0 Heart Failure Congestive 04/09/2012 RODRIGUEZ MICHAEL MCKENNA K 414.00 CAD 04/09/2012 RODRIGUEZ MICHAEL MCKENNA K 428.0 Heart Failure Congestive 04/09/2012 KEESHA ALMODOVAR, ERICA 414.00 CAD 04/09/2012 KEESHA ALMODOVAR, ERICA 428.0 Heart Failure Congestive 04/09/2012 KEESHA ALMODOVAR, ERICA 414.00 CAD 04/09/2012 KEESHA ALMODOVAR, ERICA 428.0 Heart Failure Congestive 04/09/2012 KEESHA ALMODOVAR, ERICA 414.00 CAD 04/09/2012 KEESHA ALMODOVAR, ERICA 428.0 Heart Failure Congestive 04/09/2012 RAUDEL STAPLES APRN 414.00 CAD 04/09/2012 RAUDEL STAPLES APRN S 428.0 Heart Failure Congestive 04/09/2012 KEESHA ALMODOVAR, ERICA 414.00 CAD 04/09/2012 KEESHA ALMODOVAR, ERICA 428.0 Heart Failure Congestive 04/09/2012 KEESHA ALMODOVAR, ERICA 414.00 CAD 04/09/2012 KEESHA ALMODOVAR, ERICA 428.0 Heart Failure Congestive 04/09/2012 JHOAN MANAGER SPECIALTY, RAUDEL S 414.00 CAD 04/09/2012 JHOAN MANAGER SPECIALTY, RAUDEL S 428.0 Heart Failure Congestive 04/09/2012 RODRIGUEZ DO, MICHAEL K 414.00 CAD 04/09/2012 RODRIGUEZ DO, MICHAEL K 428.0 Heart Failure Congestive 04/09/2012 KEESHA ALMODOVAR, ERICA 414.00 CAD 04/09/2012 KEESHA ALMODOVAR, ERICA 428.0 Heart Failure Congestive 04/09/2012 ZEKE ALMODOVAR, ROSA ELENA N 414.00 CAD 04/09/2012 ZEKE ALMODOVAR, ROSA ELENA Ulloa 428.0 Heart Failure Congestive 04/09/2012 KEESHA ALMODOVAR, ERICA 414.00 CAD 04/09/2012 ERICA THAO MD 428.0 Heart Failure Congestive 04/09/2012 JHOAN MANAGER SPECIALTY, RAUDEL S 414.00 CAD 04/09/2012 JHOAN MANAGER SPECIALTY, RAUDEL S 428.0 Heart Failure Congestive 04/09/2012 JHOAN MANAGER SPECIALTY, RAUDEL S 414.00 CAD 04/09/2012 JHOAN MANAGER SPECIALTY, RAUDEL S 428.0 Heart Failure Congestive 04/09/2012 RODRIGUEZ DO, MICHAEL K 414.00 CAD 04/09/2012 RODRIGUEZ DO, MICHAEL K 428.0 Heart Failure Congestive 04/09/2012 JHOAN MANAGER SPECIALTY, RAUDEL S 414.00 CAD 04/09/2012 JHOAN MANAGER SPECIALTY, RAUDEL S 428.0 Heart Failure Congestive 04/09/2012 ERICA THAO MD 414.00 CAD 04/09/2012 ERICA THAO MD 428.0 Heart Failure Congestive 04/09/2012 JHOAN MANAGER SPECIALTY, RAUDEL S 414.00 CAD 04/09/2012 JHOAN MANAGER SPECIALTY, RAUDEL S 428.0 Heart Failure Congestive 04/09/2012 VIVI MANAGER SPECIALTY, LUZ 414.00 CAD 04/09/2012 VIVI MANAGER SPECIALTY, LUZ 428.0 Heart Failure Congestive 04/09/2012 VIVI MANAGER SPECIALTY, LUZ 414.00 CAD 04/09/2012 VIVI MANAGER SPECIALTY, LUZ 428.0 Heart Failure Congestive 04/09/2012 RODRIGUEZ DO, MICHAEL K 414.00 CAD 04/09/2012 RODRIGUEZ DO, MICHAEL K 428.0 Heart Failure Congestive 04/09/2012 VIVI PACE, LUZ 414.00 CAD 04/09/2012 LUZ TRINIDAD APRN 428.0 Heart Failure Congestive 04/09/2012 RAUDEL STAPLES APRN S 414.00 CAD 04/09/2012 JHOAN PACE, RAUDEL S 428.0 Heart Failure Congestive 04/25/2012 Ot 250.52 DIAB W OPHTHAL MANIFEST, TYPE II OR UNSP 04/25/2012 Ot 250.82 DIAB W OTH SPEC MANIFEST, TYPE II OR UNS 04/25/2012 Ot 272.4 HYPERLIPIDEMIA NEC/NOS 04/25/2012 Ot 276.69 OTHER FLUID OVERLOAD 04/25/2012 Ot 285.9 ANEMIA NOS 04/25/2012 Ot 362.01 DIABETIC RETINOPATHY NOS 04/25/2012 Ot 403.90 HYPTNSV CHR KID DIS, UNSPEC, W CHR KD ST 04/25/2012 Ot 412 OLD MYOCARDIAL INFARCT 04/25/2012 Ot 414.01 CORONARY ATHEROSCLEROSIS OF [place] CORON 04/25/2012 Ot 429.3 CARDIOMEGALY 04/25/2012 Ot 493.20 CHRONIC OBSTRUCTIVE ASTHMA, NOS 04/25/2012 Ot 571.8 CHRONIC LIVER DIS NEC 04/25/2012 Ot 575.0 ACUTE CHOLECYSTITIS 04/25/2012 Ot 575.8 DIS OF GALLBLADDER NEC 04/25/2012 Ot 585.9 CHRONIC KIDNEY DISEASE, UNSPECIFIED 04/25/2012 Ot 715.90 OSTEOARTHROS NOS-UNSPEC 04/25/2012 Ot V10.3 HX OF BREAST MALIGNANCY 03/28/2013 ROSA ELENA ALANIS MD Ot 041.49 OTHER AND UNSPECIFIED ESCHERICHIA COLI [ 03/28/2013 ROSA ELENA ALANIS MD Ot 250.02 DIAB SASHA WO COMPL, TYPE II OR UNSPEC TY 03/28/2013 ROSA ELENA ALANIS MD Ot 272.4 HYPERLIPIDEMIA NEC/NOS 03/28/2013 ROSA ELENA ALANIS MD Ot 276.1 HYPOSMOLALITY 03/28/2013 ROSA ELENA ALANIS MD Ot 276.8 HYPOPOTASSEMIA 03/28/2013 ROSA ELENA ALANIS MD Ot 403.90 HYPTNSV CHR KID DIS, UNSPEC, W CHR KD ST 03/28/2013 ROSA ELENA ALANIS MD Ot 414.01 CORONARY ATHEROSCLEROSIS OF [place] CORON 03/28/2013 ROSA ELENA ALANIS MD Ot 428.0 CONGESTIVE HEART FAILURE NOS 03/28/2013 ROSA ELENA ALANIS MD Ot 458.9 HYPOTENSION NOS 03/28/2013 ROSA ELENA ALANIS MD Ot 493.20 CHRONIC OBSTRUCTIVE ASTHMA, NOS 03/28/2013 ROSA ELENA ALANIS MD Ot 530.81 ESOPHAGEAL REFLUX 03/28/2013 ROSA ELENA ALANIS MD Ot 564.00 UNSPEC CONSTIPATION 03/28/2013 ROSA ELENA ALANIS MD Ot 584.9 ACUTE RENAL FAILURE, UNSPECIFIED 03/28/2013 ROSA ELENA ALANIS MD Ot 585.9 CHRONIC KIDNEY DISEASE, UNSPECIFIED 03/28/2013 ROSA ELENA ALANIS MD Ot 599.0 URIN TRACT INFECTION NOS 03/28/2013 ROSA ELENA ALANIS MD Ot 780.2 SYNCOPE AND COLLAPSE 03/28/2013 ROSA ELENA ALANIS MD Ot 794.5 ABN THYROID FUNCT STUDY 03/28/2013 ROSA ELENA ALANIS MD Ot V58.67 LONG-TERM (CURRENT) USE OF INSULIN 05/12/2013 ERICA THAO MD Ot 244.9 HYPOTHYROIDISM NOS 05/12/2013 ERICA THAO MD Ot 250.60 DIAB W NEURO MANIFEST, TYPE II OR UNSPEC 05/12/2013 ERICA THAO MD Ot 276.8 HYPOPOTASSEMIA 05/12/2013 ERICA THAO MD Ot 278.00 OBESITY, NOS 05/12/2013 ERICA THAO MD Ot 288.60 LEUKOCYTOSIS, UNSPECIFIED 05/12/2013 ERICA THAO MD Ot 300.00 ANXIETY STATE NOS 05/12/2013 ERICA THAO MD Ot 356.9 IDIO PERIPH NEURPTHY NOS 05/12/2013 ERICA THAO MD Ot 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 05/12/2013 ERICA THAO MD Ot 403.90 HYPTNSV CHR KID DIS, UNSPEC, W CHR KD ST 05/12/2013 ERICA THAO MD Ot 412 OLD MYOCARDIAL INFARCT 05/12/2013 ERICA THAO MD Ot 414.01 CORONARY ATHEROSCLEROSIS OF [place] CORON 05/12/2013 ERICA THAO MD Ot 428.0 CONGESTIVE HEART FAILURE NOS 05/12/2013 ERICA THAO MD Ot 493.90 ASTHMA, UNSPECIFIED 05/12/2013 ERICA THAO MD Ot 536.3 GASTROPARESIS 05/12/2013 ERICA THAO MD Ot 553.3 DIAPHRAGMATIC HERNIA 05/12/2013 ERICA THAO MD Ot 564.00 UNSPEC CONSTIPATION 05/12/2013 ERICA THAO MD Ot 585.9 CHRONIC KIDNEY DISEASE, UNSPECIFIED 05/12/2013 ERICA THAO MD Ot 786.50 CHEST PAIN NOS 05/12/2013 ERICA THAO MD Ot V04.81 ND FOR PROPHYLACTIC VACCIN AND INOCULATI 05/12/2013 ERICA THAO MD Ot V10.3 HX OF BREAST MALIGNANCY 05/12/2013 ERICA THAO MD Ot V12.54 PERSONAL HX OF TIA, CEREBRAL INFARCTION 05/12/2013 ERICA THAO MD Ot V13.02 PERSONAL HISTORY, URINARY (TRACT) INFECT 05/12/2013 ERICA THAO MD Ot V15.81 HX OF PAST NONCOMPLIANCE 05/12/2013 ERICA THAO MD Ot V58.67 LONG-TERM (CURRENT) USE OF INSULIN 05/12/2013 ERICA THAO MD Ot V85.36 BODY MASS INDEX 36.0-36.9, ADULT 05/15/2013 MICHAEL RODRIGUEZ DO Ot 244.9 HYPOTHYROIDISM NOS 05/15/2013 MICHAEL RODRIGUEZ DO K Ot 250.60 DIAB W NEURO MANIFEST, TYPE II OR UNSPEC 05/15/2013 MICHAEL RODRIGUEZ DO K Ot 272.4 HYPERLIPIDEMIA NEC/NOS 05/15/2013 CARISSA RODRIGUEZ DOA K Ot 278.00 OBESITY, NOS 05/15/2013 CARISSA RODRIGUEZ DOA K Ot 288.60 LEUKOCYTOSIS, UNSPECIFIED 05/15/2013 CARISSA RODRIGUEZ DOA K Ot 356.9 IDIO PERIPH NEURPTHY NOS 05/15/2013 CARISSA RODRIGUEZ DOA K Ot 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, ONE EYE 05/15/2013 CARISSA RODRIGUEZ DOA K Ot 403.90 HYPTNSV CHR KID DIS, UNSPEC, W CHR KD ST 05/15/2013 CARISSA RODRIGUEZ DOA K Ot 458.9 HYPOTENSION NOS 05/15/2013 CARISSA RODRIGUEZ DOA K Ot 493.90 ASTHMA, UNSPECIFIED 05/15/2013 MICHAEL RODRIGUEZ DO Ot 536.3 GASTROPARESIS 05/15/2013 MICHAEL RODRIGUEZ DO Ot 553.3 DIAPHRAGMATIC HERNIA 05/15/2013 CARISSA RODRIGUEZ DOA K Ot 585.9 CHRONIC KIDNEY DISEASE, UNSPECIFIED 05/15/2013 CARISSA RODRIGUEZ DOA K Ot 593.9 RENAL URETERAL DIS NOS 05/15/2013 CARISSA RODRIGUEZ DOA K Ot 715.90 OSTEOARTHROS NOS-UNSPEC 05/15/2013 MICHAEL RODRIGUEZ DO K Ot 780.2 SYNCOPE AND COLLAPSE 05/15/2013 CARISSA RODRIGUEZ DOA K Ot V15.81 HX OF PAST NONCOMPLIANCE 05/15/2013 CARISSA RODRIGUEZ DOA K Ot V58.67 LONG-TERM (CURRENT) USE OF INSULIN 05/15/2013 MICHAEL RODRIGUEZ DO Ot V85.36 BODY MASS INDEX 36.0-36.9, ADULT 05/29/2013 MICHAEL RODRIGUEZ DO K 536.2 PERSISTENT VOMITING 05/29/2013 MICHAEL RODRIGUEZ DO K 783.21 LOSS OF WEIGHT 05/29/2013 ERICA THAO MD 536.2 PERSISTENT VOMITING 05/29/2013 ERICA THAO MD 783.21 LOSS OF WEIGHT 05/29/2013 ERICA THAO MD6.2 PERSISTENT VOMITING 05/29/2013 ERICA THAO MD 783.21 LOSS OF WEIGHT 05/29/2013 ERICA THAO MD6.2 PERSISTENT VOMITING 05/29/2013 ERICA THAO MD 783.21 LOSS OF WEIGHT 05/29/2013 RAUDEL STAPLES APRN S 536.2 PERSISTENT VOMITING 05/29/2013 RAUDEL STAPLES APRN S 783.21 LOSS OF WEIGHT 05/29/2013 ERICA THAO MD6.2 PERSISTENT VOMITING 05/29/2013 ERICA THAO MD 783.21 LOSS OF WEIGHT 05/29/2013 ERICA THAO MD6.2 PERSISTENT VOMITING 05/29/2013 ERICA THAO MD 783.21 LOSS OF WEIGHT 05/29/2013 RAUDEL STAPLES APRN S 536.2 PERSISTENT VOMITING 05/29/2013 RAUDEL STAPLES APRN S 783.21 LOSS OF WEIGHT 05/29/2013 MICHAEL RODRIGUEZ DO 536.2 PERSISTENT VOMITING 05/29/2013 RODRIGUEZ DO MICHAEL K 783.21 LOSS OF WEIGHT 05/29/2013 ERICA THAO MD 536.2 PERSISTENT VOMITING 05/29/2013 ERICA THAO MD 783.21 LOSS OF WEIGHT 05/29/2013 ROSA ELENA ALANIS MD N 536.2 PERSISTENT VOMITING 05/29/2013 ROSA ELENA ALANIS MD N 783.21 LOSS OF WEIGHT 05/29/2013 ERICA THAO MD 536.2 PERSISTENT VOMITING 05/29/2013 ERICA THAO MD 783.21 LOSS OF WEIGHT 05/29/2013 JHOAN MANAGER SPECIALTY, RAUDEL S 536.2 PERSISTENT VOMITING 05/29/2013 JHOAN MANAGER SPECIALTY, RAUDEL S 783.21 LOSS OF WEIGHT 05/29/2013 JHOAN SANJEEV RAUDEL S 536.2 PERSISTENT VOMITING 05/29/2013 JHOAN MANAGER SPECIALTY, RAUDEL S 783.21 LOSS OF WEIGHT 05/29/2013 RODRIGUEZ DO MICHAEL K 536.2 PERSISTENT VOMITING 05/29/2013 RODRIGUEZ DO, MICHAEL K 783.21 LOSS OF WEIGHT 05/29/2013 JHOAN MANAGER SPECIALTY, RAUDEL S 536.2 PERSISTENT VOMITING 05/29/2013 JHOAN MANAGER SPECIALTY, RAUDEL S 783.21 LOSS OF WEIGHT 05/29/2013 ERICA THAO MD 536.2 PERSISTENT VOMITING 05/29/2013 ERICA THAO MD 783.21 LOSS OF WEIGHT 05/29/2013 JHOAN PACE RAUDEL S 536.2 PERSISTENT VOMITING 05/29/2013 JHOAN PACE RAUDEL S 783.21 LOSS OF WEIGHT 05/29/2013 VIVI MANAGER SPECIALTY, LUZ 536.2 PERSISTENT VOMITING 05/29/2013 VIVI MANAGER SPECIALTY, LUZ 783.21 LOSS OF WEIGHT 05/29/2013 VIVI MANAGER SPECIALTY, LUZ 536.2 PERSISTENT VOMITING 05/29/2013 VIVI MANAGER SPECIALTY, LUZ 783.21 LOSS OF WEIGHT 05/29/2013 RODRIGUEZ DO, MICHAEL K 536.2 PERSISTENT VOMITING 05/29/2013 RODRIGUEZ DO, MICHAEL K 783.21 LOSS OF WEIGHT 05/29/2013 VIVI MANAGER SPECIALTY, LUZ 536.2 PERSISTENT VOMITING 05/29/2013 LUZ TRINIDAD APRN 783.21 LOSS OF WEIGHT 05/29/2013 RAUDEL STAPLES APRN S 536.2 PERSISTENT VOMITING 05/29/2013 RAUDEL STAPLES APRN S 783.21 LOSS OF WEIGHT 06/01/2013 ERICA THAO MD V18.51 FAM HX COLON POLYPS/DIGESTIVE DISORDERS 06/01/2013 RAUDEL STAPLES APRN S V18.51 FAM HX COLON POLYPS/DIGESTIVE DISORDERS 06/01/2013 ERICA THAO MD V18.51 FAM HX COLON POLYPS/DIGESTIVE DISORDERS 06/01/2013 ERICA THAO MD V18.51 FAM HX COLON POLYPS/DIGESTIVE DISORDERS 06/01/2013 RAUDEL STAPLES APRN S V18.51 FAM HX COLON POLYPS/DIGESTIVE DISORDERS 06/01/2013 MICHAEL RODRIGUEZ DO V18.51 FAM HX COLON POLYPS/DIGESTIVE DISORDERS 06/01/2013 ERICA THAO MD V18.51 FAM HX COLON POLYPS/DIGESTIVE DISORDERS 06/01/2013 ROSA ELENA ALANIS MD V18.51 FAM HX COLON POLYPS/DIGESTIVE DISORDERS 06/01/2013 ERICA THAO MD V18.51 FAM HX COLON POLYPS/DIGESTIVE DISORDERS 06/01/2013 RAUDEL STAPLES APRN S V18.51 FAM HX COLON POLYPS/DIGESTIVE DISORDERS 06/01/2013 RAUDEL STAPLES APRN S V18.51 FAM HX COLON POLYPS/DIGESTIVE DISORDERS 06/01/2013 MICHAEL RODRIGUEZ DO K V18.51 FAM HX COLON POLYPS/DIGESTIVE DISORDERS 06/01/2013 RAUDEL STAPLES APRN S V18.51 FAM HX COLON POLYPS/DIGESTIVE DISORDERS 06/01/2013 ERICA THAO MD V18.51 FAM HX COLON POLYPS/DIGESTIVE DISORDERS 06/01/2013 ESMER STAPLES APRNA S V18.51 FAM HX COLON POLYPS/DIGESTIVE DISORDERS 06/01/2013 VIVI PACE LUZ V18.51 FAM HX COLON POLYPS/DIGESTIVE DISORDERS 06/01/2013 VIVI PACE LUZ V18.51 FAM HX COLON POLYPS/DIGESTIVE DISORDERS 06/01/2013 MICHAEL RODRIGUEZ DO K V18.51 FAM HX COLON POLYPS/DIGESTIVE DISORDERS 06/01/2013 VIVI PACE LUZ V18.51 FAM HX COLON POLYPS/DIGESTIVE DISORDERS 06/01/2013 RAUDEL STAPLES APRN V18.51 FAM HX COLON POLYPS/DIGESTIVE DISORDERS 06/15/2013 BETH ALMODOVAR, SIMON Rahman Ot 211.3 BENIGN NEOPLASM LG BOWEL 06/15/2013 BETH ALMODOVAR, SIMON Rahman Ot 211.4 BENIGN NEOPL RECTUM/ANUS 06/15/2013 BETH ALMODOVAR, SIMON Rahman Ot 562.10 DIVERTICULOSIS COLON (W/O MENT OF HEMORR 06/15/2013 BETH ALMODOVAR, SIMON Rahman Ot V76.51 SCREEN MAL NEOP-COLON 07/16/2013 ERICA THAO MD Ot 041.49 OTHER AND UNSPECIFIED ESCHERICHIA COLI [ 07/16/2013 ERICA THAO MD Ot 244.9 HYPOTHYROIDISM NOS 07/16/2013 ERICA THAO MD Ot 250.62 DIAB W NEURO MANIFEST, TYPE II OR UNSPEC 07/16/2013 ERICA HTAO MD Ot 272.4 HYPERLIPIDEMIA NEC/NOS 07/16/2013 ERICA THAO MD Ot 276.1 HYPOSMOLALITY 07/16/2013 ERICA THAO MD Ot 276.8 HYPOPOTASSEMIA 07/16/2013 ERICA THAO MD Ot 356.9 IDIO PERIPH NEURPTHY NOS 07/16/2013 ERICA THAO MD Ot 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, ONE EYE 07/16/2013 ERICA THAO MD Ot 403.90 HYPTNSV CHR KID DIS, UNSPEC, W CHR KD ST 07/16/2013 ERICA THAO MD Ot 414.01 CORONARY ATHEROSCLEROSIS OF [place] CORON 07/16/2013 ERICA THAO MD Ot 428.0 CONGESTIVE HEART FAILURE NOS 07/16/2013 ERICA THAO MD Ot 458.9 HYPOTENSION NOS 07/16/2013 ERICA THAO MD Ot 493.90 ASTHMA, UNSPECIFIED 07/16/2013 ERICA THAO MD Ot 530.81 ESOPHAGEAL REFLUX 07/16/2013 ERICA THAO MD Ot 535.50 UNSP GASTRITIS GASTRODUODENITIS W/O ME 07/16/2013 ERICA THAO MD Ot 536.3 GASTROPARESIS 07/16/2013 ERICA THAO MD Ot 553.3 DIAPHRAGMATIC HERNIA 07/16/2013 ERICA THAO MD Ot 585.3 CHRONIC KIDNEY DISEASE, STAGE III (MODER 07/16/2013 ERICA THAO MD Ot 593.9 RENAL URETERAL DIS NOS 07/16/2013 ERICA THAO MD Ot 599.0 URIN TRACT INFECTION NOS 07/16/2013 ERICA THAO MD Ot 780.2 SYNCOPE AND COLLAPSE 07/16/2013 ERICA THAO MD Ot 786.50 CHEST PAIN NOS 07/16/2013 ERICA THAO MD Ot V10.3 HX OF BREAST MALIGNANCY 07/16/2013 ERICA THAO MD Ot V12.54 PERSONAL HX OF TIA, CEREBRAL INFARCTION 07/16/2013 ERICA THAO MD Ot V15.81 HX OF PAST NONCOMPLIANCE 07/16/2013 ERICA THAO MD Ot V58.67 LONG-TERM (CURRENT) USE OF INSULIN 08/12/2013 ERICA THAO MD Ot 112.2 CANDIDIAS UROGENITAL NEC 08/12/2013 ERICA THAO MD Ot 244.9 HYPOTHYROIDISM NOS 08/12/2013 ERICA THAO MD Ot 250.62 DIAB W NEURO MANIFEST, TYPE II OR UNSPEC 08/12/2013 ERICA THAO MD Ot 272.4 HYPERLIPIDEMIA NEC/NOS 08/12/2013 ERICA THAO MD Ot 276.51 DEHYDRATION 08/12/2013 ERICA THAO MD Ot 276.8 HYPOPOTASSEMIA 08/12/2013 ERICA THAO MD Ot 290.40 VASCULAR DEMENTIA, UNCOMPLICATED 08/12/2013 ERICA THAO MD Ot 356.9 IDIO PERIPH NEURPTHY NOS 08/12/2013 ERICA THAO MD Ot 403.90 HYPTNSV CHR KID DIS, UNSPEC, W CHR KD ST 08/12/2013 ERICA THAO MD Ot 414.01 CORONARY ATHEROSCLEROSIS OF [place] CORON 08/12/2013 ERICA THAO MD Ot 493.90 ASTHMA, UNSPECIFIED 08/12/2013 ERICA THAO MD Ot 536.3 GASTROPARESIS 08/12/2013 ERICA THAO MD Ot 562.10 DIVERTICULOSIS COLON (W/O MENT OF HEMORR 08/12/2013 ERICA THAO MD Ot 585.3 CHRONIC KIDNEY DISEASE, STAGE III (MODER 08/12/2013 ERICA THAO MD Ot 715.90 OSTEOARTHROS NOS-UNSPEC 08/12/2013 ERICA THAO MD Ot V10.3 HX OF BREAST MALIGNANCY 08/12/2013 ERICA THAO MD Ot V12.79 PERSONAL HISTORY OTH SPEC DIGESTIVE SYST 08/12/2013 ERICA THAO MD Ot V13.02 PERSONAL HISTORY, URINARY (TRACT) INFECT 08/12/2013 ERICA THAO MD Ot V15.81 HX OF PAST NONCOMPLIANCE 08/12/2013 ERICA THAO MD Ot V58.67 LONG-TERM (CURRENT) USE OF INSULIN 09/30/2013 ERICA THAO MD 244.9 UNSPECIFIED ACQUIRED HYPOTHYROIDISM 09/30/2013 ERICA THAO MD 290.40 VASCULAR DEMENTIA UNCOMPLICATED 09/30/2013 ISELA STAPLES APRNNDA S 244.9 UNSPECIFIED ACQUIRED HYPOTHYROIDISM 09/30/2013 ISELA STAPLES APRNNDA S 290.40 VASCULAR DEMENTIA UNCOMPLICATED 09/30/2013 RODRIGUEZ DO MICHAEL K 244.9 UNSPECIFIED ACQUIRED HYPOTHYROIDISM 09/30/2013 MICHAEL DO MICHAEL K 290.40 VASCULAR DEMENTIA UNCOMPLICATED 09/30/2013 ERICA THAO MD 244.9 UNSPECIFIED ACQUIRED HYPOTHYROIDISM 09/30/2013 ERICA THAO MD 290.40 VASCULAR DEMENTIA UNCOMPLICATED 09/30/2013 ROSA ELENA ALANIS MD 244.9 UNSPECIFIED ACQUIRED HYPOTHYROIDISM 09/30/2013 ROSA ELENA ALANIS MD N 290.40 VASCULAR DEMENTIA UNCOMPLICATED 09/30/2013 ERICA THAO MD 244.9 UNSPECIFIED ACQUIRED HYPOTHYROIDISM 09/30/2013 ERICA THAO MD 290.40 VASCULAR DEMENTIA UNCOMPLICATED 09/30/2013 ISELA STAPLES APRNNDA S 244.9 UNSPECIFIED ACQUIRED HYPOTHYROIDISM 09/30/2013 ISELA STAPLES APRNNDA S 290.40 VASCULAR DEMENTIA UNCOMPLICATED 09/30/2013 ISELA STAPLES APRNNDA S 244.9 UNSPECIFIED ACQUIRED HYPOTHYROIDISM 09/30/2013 JHOAN PACE RAUDEL S 290.40 VASCULAR DEMENTIA UNCOMPLICATED 09/30/2013 RODRIGUEZ DO MICHAEL K 244.9 UNSPECIFIED ACQUIRED HYPOTHYROIDISM 09/30/2013 RODRIGUEZ DO MICHAEL K 290.40 VASCULAR DEMENTIA UNCOMPLICATED 09/30/2013 JHOAN MANAGER SPECIALTY, RAUDEL S 244.9 UNSPECIFIED ACQUIRED HYPOTHYROIDISM 09/30/2013 JHOAN PACE, RAUDEL S 290.40 VASCULAR DEMENTIA UNCOMPLICATED 09/30/2013 ERICA THAO MD 244.9 UNSPECIFIED ACQUIRED HYPOTHYROIDISM 09/30/2013 ERICA THAO MD 290.40 VASCULAR DEMENTIA UNCOMPLICATED 09/30/2013 ISELA STAPLES APRNNDA S 244.9 UNSPECIFIED ACQUIRED HYPOTHYROIDISM 09/30/2013 ISELA STAPLES APRNNDA S 290.40 VASCULAR DEMENTIA UNCOMPLICATED 09/30/2013 VIVI MANAGER SPECIALTY, LUZ 244.9 UNSPECIFIED ACQUIRED HYPOTHYROIDISM 09/30/2013 VIVI MANAGER SPECIALTY, LUZ 290.40 VASCULAR DEMENTIA UNCOMPLICATED 09/30/2013 VIVI MANAGER SPECIALTY, LUZ 244.9 UNSPECIFIED ACQUIRED HYPOTHYROIDISM 09/30/2013 VIVI MANAGER SPECIALTY, LUZ 290.40 VASCULAR DEMENTIA UNCOMPLICATED 09/30/2013 RODRIGUEZ DO, MICHAEL K 244.9 UNSPECIFIED ACQUIRED HYPOTHYROIDISM 09/30/2013 RODRIGUEZ DO, MICHAEL K 290.40 VASCULAR DEMENTIA UNCOMPLICATED 09/30/2013 VIVI MANAGER SPECIALTY, LUZ 244.9 UNSPECIFIED ACQUIRED HYPOTHYROIDISM 09/30/2013 VIVI MANAGER SPECIALTY, LUZ 290.40 VASCULAR DEMENTIA UNCOMPLICATED 09/30/2013 JHOAN MANAGER SPECIALTY, RAUDEL S 244.9 UNSPECIFIED ACQUIRED HYPOTHYROIDISM 09/30/2013 JHOAN PACE, RAUDEL S 290.40 VASCULAR DEMENTIA UNCOMPLICATED 10/13/2013 MIGUEL ALMODOVAR, CARMELINA A Ot 401.9 HYPERTENSION NOS 10/13/2013 MIGUEL ALMODOVAR, CARMELINA A Ot 784.0 HEADACHE 10/14/2013 ISELA STAPLES APRNNDA S 401.0 HYPERTENSION MALIGNANT ESSENTIAL 10/14/2013 ISELA STAPLES APRNNDA S 787.01 NAUSEA WITH VOMITING 10/14/2013 RODRIGUEZ DO, MICHAEL K 401.0 HYPERTENSION MALIGNANT ESSENTIAL 10/14/2013 RODRIGUEZ DO, MICHAEL K 787.01 NAUSEA WITH VOMITING 10/14/2013 ERICA THAO MD 401.0 HYPERTENSION MALIGNANT ESSENTIAL 10/14/2013 ERICA THAO MD 787.01 NAUSEA WITH VOMITING 10/14/2013 ROSA ELENA ALANIS MD 401.0 HYPERTENSION MALIGNANT ESSENTIAL 10/14/2013 ROSA ELENA ALANIS MD 787.01 NAUSEA WITH VOMITING 10/14/2013 ERICA THAO MD 401.0 HYPERTENSION MALIGNANT ESSENTIAL 10/14/2013 ERICA THAO MD 787.01 NAUSEA WITH VOMITING 10/14/2013 JHOAN PACE RAUDEL S 401.0 HYPERTENSION MALIGNANT ESSENTIAL 10/14/2013 JHOAN PACE RAUDEL S 787.01 NAUSEA WITH VOMITING 10/14/2013 JHOAN PACE RAUDEL S 401.0 HYPERTENSION MALIGNANT ESSENTIAL 10/14/2013 JHOAN PACE RAUDEL S 787.01 NAUSEA WITH VOMITING 10/14/2013 RODRIGUEZ DO, MICHAEL K 401.0 HYPERTENSION MALIGNANT ESSENTIAL 10/14/2013 RODRIGUEZ DO, MICHAEL K 787.01 NAUSEA WITH VOMITING 10/14/2013 JHOAN PACE RAUDEL S 401.0 HYPERTENSION MALIGNANT ESSENTIAL 10/14/2013 ISELA STAPLES APRNNDA S 787.01 NAUSEA WITH VOMITING 10/14/2013 ERICA THAO MD 401.0 HYPERTENSION MALIGNANT ESSENTIAL 10/14/2013 ERICA THAO MD 787.01 NAUSEA WITH VOMITING 10/14/2013 ISELA STAPLES APRNNDA S 401.0 HYPERTENSION MALIGNANT ESSENTIAL 10/14/2013 ISELA STAPLES APRNNDA S 787.01 NAUSEA WITH VOMITING 10/14/2013 VIVI MANAGER SPECIALTY, LUZ 401.0 HYPERTENSION MALIGNANT ESSENTIAL 10/14/2013 VIVI MANAGER SPECIALTY, LUZ 787.01 NAUSEA WITH VOMITING 10/14/2013 VIVI MANAGER SPECIALTY, LUZ 401.0 HYPERTENSION MALIGNANT ESSENTIAL 10/14/2013 VIVI MANAGER SPECIALTY, LUZ 787.01 NAUSEA WITH VOMITING 10/14/2013 RODRIGUEZ DO, MICHAEL K 401.0 HYPERTENSION MALIGNANT ESSENTIAL 10/14/2013 RODRIGUEZ DO, MICHAEL K 787.01 NAUSEA WITH VOMITING 10/14/2013 VIVI MANAGER SPECIALTY, LUZ 401.0 HYPERTENSION MALIGNANT ESSENTIAL 10/14/2013 VIVI MANAGER SPECIALTY, LUZ 787.01 NAUSEA WITH VOMITING 10/14/2013 JHOAN PACE RAUDEL S 401.0 HYPERTENSION MALIGNANT ESSENTIAL 10/14/2013 JHOAN MANAGER SPECIALTY, RAUDEL S 787.01 NAUSEA WITH VOMITING 10/16/2013 JHOAN PACE RAUDEL S 789.04 ABDOMINAL PAIN LEFT LOWER QUADRANT 10/16/2013 JHOAN PACE RAUDEL S 790.99 abnormal lab 10/16/2013 RODRIGUEZ DO, MICHAEL K 789.04 ABDOMINAL PAIN LEFT LOWER QUADRANT 10/16/2013 RODRIGUEZ DO, MICHAEL K 790.99 abnormal lab 10/16/2013 ERICA THAO MD 789.04 ABDOMINAL PAIN LEFT LOWER QUADRANT 10/16/2013 ERICA THAO MD 790.99 abnormal lab 10/16/2013 ZEKE ALMODOVAR, ROSA ELENA Ulloa 789.04 ABDOMINAL PAIN LEFT LOWER QUADRANT 10/16/2013 ZEKE ALMODOVAR, ROSA ELENA Ulloa 790.99 abnormal lab 10/16/2013 ERICA THAO MD 789.04 ABDOMINAL PAIN LEFT LOWER QUADRANT 10/16/2013 ERICA THAO MD 790.99 abnormal lab 10/16/2013 JHOAN MANAGER SPECIALTY, RAUDEL S 789.04 ABDOMINAL PAIN LEFT LOWER QUADRANT 10/16/2013 JHOAN MANAGER SPECIALTY, RAUDEL S 790.99 abnormal lab 10/16/2013 JHOAN MANAGER SPECIALTY, RAUDEL S 789.04 ABDOMINAL PAIN LEFT LOWER QUADRANT 10/16/2013 JHOAN MANAGER SPECIALTY, RAUDEL S 790.99 abnormal lab 10/16/2013 RODRIGUEZ DO, MICHAEL K 789.04 ABDOMINAL PAIN LEFT LOWER QUADRANT 10/16/2013 RODRIGUEZ DO, MICHAEL K 790.99 ABNORMAL LAB 10/16/2013 JHOAN MANAGER [employer]TY, RAUDEL S 789.04 ABDOMINAL PAIN LEFT LOWER QUADRANT 10/16/2013 JHOAN MANAGER SPECIALTY, RAUDEL S 790.99 ABNORMAL LAB 10/16/2013 ERICA THAO MD 789.04 ABDOMINAL PAIN LEFT LOWER QUADRANT 10/16/2013 ERICA THAO MD 790.99 ABNORMAL LAB 10/16/2013 JHOAN MANAGER [employer]TY, RAUDEL S 789.04 ABDOMINAL PAIN LEFT LOWER QUADRANT 10/16/2013 JHOAN MANAGER SPECIALTY, RAUDEL S 790.99 ABNORMAL LAB 10/16/2013 VIVI MANAGER SPECIALTY, LUZ 789.04 ABDOMINAL PAIN LEFT LOWER QUADRANT 10/16/2013 VIVI MANAGER SPECIALTY, LUZ 790.99 ABNORMAL LAB 10/16/2013 VIVI MANAGER SPECIALTY, LUZ 789.04 ABDOMINAL PAIN LEFT LOWER QUADRANT 10/16/2013 VIVI MANAGER SPECIALTY, LUZ 790.99 ABNORMAL LAB 10/16/2013 RODRIGUEZ DO, MICHAEL K 789.04 ABDOMINAL PAIN LEFT LOWER QUADRANT 10/16/2013 RODRIGUEZ MICHAEL MCKENNA K 790.99 ABNORMAL LAB 10/16/2013 VIVI MANAGER SPECIALTY, ULZ 789.04 ABDOMINAL PAIN LEFT LOWER QUADRANT 10/16/2013 VIVI MANAGER SPECIALTY, LUZ 790.99 ABNORMAL LAB 10/16/2013 JHOAN MANAGER [employer]TY, RAUDEL S 789.04 ABDOMINAL PAIN LEFT LOWER QUADRANT 10/16/2013 JHOAN MANAGER [employer]TY, RAUDEL S 790.99 ABNORMAL LAB 10/20/2013 KEESHA ALMODOVAR, ERICA Molina Ot 244.9 HYPOTHYROIDISM NOS 10/20/2013 KEESHA ALMODOVAR, ERICA Molina Ot 250.60 DIAB W NEURO MANIFEST, TYPE II OR UNSPEC 10/20/2013 ERICA THAO MD Ot 272.4 HYPERLIPIDEMIA NEC/NOS 10/20/2013 ERICA THAO MD Ot 278.00 OBESITY, NOS 10/20/2013 KEESHA ALMODOVAR, ERICA Molina Ot 294.20 DEMENTIA, UNSPECIFIED, 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 10/20/2013 ERICA THAO MD Ot 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, ONE EYE 10/20/2013 KEESHA ALMODOVAR, ERICA Molina Ot 403.90 HYPTNSV CHR KID DIS, UNSPEC, W CHR KD ST 10/20/2013 KEESHA ALMODOVAR, ERICA Molina Ot 414.01 CORONARY ATHEROSCLEROSIS OF [place] CORON 10/20/2013 KEESHA ALMODOVAR, ERICA Molina Ot 429.9 HEART DISEASE NOS 10/20/2013 KEESHA ALMODOVAR, ERICA Molina Ot 493.90 ASTHMA, UNSPECIFIED 10/20/2013 ERICA THAO MD Ot 536.3 GASTROPARESIS 10/20/2013 ERICA THAO MD Ot 553.3 DIAPHRAGMATIC HERNIA 10/20/2013 ERICA THAO MD Ot 562.10 DIVERTICULOSIS COLON (W/O MENT OF HEMORR 10/20/2013 KEESHA ALMODOVAR, ERICA Molina Ot 585.3 CHRONIC KIDNEY DISEASE, STAGE III (MODER 10/20/2013 KEESHA ALMODOVAR, ERICA Molina Ot 715.90 OSTEOARTHROS NOS-UNSPEC 10/20/2013 ERICA THAO MD Ot 786.50 CHEST PAIN NOS 10/20/2013 ERICA THAO MD Ot 787.01 NAUSEA WITH VOMITING 10/20/2013 ERICA THAO MD Ot V13.02 PERSONAL HISTORY, URINARY (TRACT) INFECT 10/20/2013 ERICA THAO MD Ot V17.3 FAM HX-ISCHEM HEART DIS 10/20/2013 ERICA THAO MD Ot V17.49 FAMILY HISTORY OF OTHER CARDIOVASCULAR D 10/20/2013 ERICA THAO MD Ot V85.31 BODY MASS INDEX 31.0-31.9, ADULT 10/24/2013 SIRENA FOSTER MD Ot 250.60 DIAB W NEURO MANIFEST, TYPE II OR UNSPEC 10/24/2013 SIRENA FOSTER MD Ot 536.3 GASTROPARESIS 10/24/2013 SIRENA FOSTER MD Ot 786.50 CHEST PAIN NOS 10/26/2013 ROSA ELENA ALANIS MD Ot 244.9 HYPOTHYROIDISM NOS 10/26/2013 ROSA ELENA ALANIS MD Ot 250.62 DIAB W NEURO MANIFEST, TYPE II OR UNSPEC 10/26/2013 ROSA ELENA ALANIS MD Ot 272.0 PURE HYPERCHOLESTEROLEM 10/26/2013 ROSA ELENA ALANIS MD Ot 278.00 OBESITY, NOS 10/26/2013 ROSA ELENA ALANIS MD Ot 356.9 IDIO PERIPH NEURPTHY NOS 10/26/2013 ROSA ELENA ALANIS MD Ot 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, ONE EYE 10/26/2013 ROSA ELENA ALANIS MD Ot 403.90 HYPTNSV CHR KID DIS, UNSPEC, W CHR KD ST 10/26/2013 ROSA ELENA ALANIS MD Ot 412 OLD MYOCARDIAL INFARCT 10/26/2013 ROSA ELENA ALANIS MD Ot 414.01 CORONARY ATHEROSCLEROSIS OF [place] CORON 10/26/2013 ROSA ELENA ALANIS MD Ot 428.0 CONGESTIVE HEART FAILURE NOS 10/26/2013 ROSA ELENA ALANIS MD Ot 493.90 ASTHMA, UNSPECIFIED 10/26/2013 ROSA ELENA ALANIS MD Ot 530.5 DYSKINESIA OF ESOPHAGUS 10/26/2013 ROSA ELENA ALANIS MD Ot 530.81 ESOPHAGEAL REFLUX 10/26/2013 ROSA ELENA ALANIS MD Ot 536.3 GASTROPARESIS 10/26/2013 ROSA ELENA ALANIS MD Ot 553.3 DIAPHRAGMATIC HERNIA 10/26/2013 ROSA ELENA ALANIS MD Ot 562.10 DIVERTICULOSIS COLON (W/O MENT OF HEMORR 10/26/2013 ROSA ELENA ALANIS MD Ot 585.3 CHRONIC KIDNEY DISEASE, STAGE III (MODER 10/26/2013 ROSA ELENA ALANIS MD Ot 715.90 OSTEOARTHROS NOS-UNSPEC 10/26/2013 ROSA ELENA AALNIS MD Ot V10.3 HX OF BREAST MALIGNANCY 10/26/2013 ROSA ELENA ALANIS MD Ot V12.54 PERSONAL HX OF TIA, CEREBRAL INFARCTION 10/26/2013 ROSA ELENA ALANIS MD, Ot V58.67 LONG-TERM (CURRENT) USE OF INSULIN 10/26/2013 ROSA ELENA ALANIS MD Ot V85.30 BODY MASS INDEX 30.0-30.9, ADULT 10/28/2013 MICHAEL RODRIGUEZ DO 786.50 UNSPECIFIED CHEST PAIN 10/28/2013 ERICA THAO MD 786.50 UNSPECIFIED CHEST PAIN 10/28/2013 ROSA ELENA ALANIS MD 786.50 UNSPECIFIED CHEST PAIN 10/28/2013 ERICA THAO MD 786.50 UNSPECIFIED CHEST PAIN 10/28/2013 JHOAN MANAGER SPECIALTY, RAUDEL S 786.50 UNSPECIFIED CHEST PAIN 10/28/2013 JHOAN MANAGER SPECIALTY, RAUDEL S 786.50 UNSPECIFIED CHEST PAIN 10/28/2013 MICHAEL RODRIGUEZ DO K 786.50 UNSPECIFIED CHEST PAIN 10/28/2013 JHOAN PACE, RAUDEL S 786.50 UNSPECIFIED CHEST PAIN 10/28/2013 ERICA THAO MD 786.50 UNSPECIFIED CHEST PAIN 10/28/2013 JHOAN MANAGER SPECIALTY, RAUDEL S 786.50 UNSPECIFIED CHEST PAIN 10/28/2013 VIVI MANAGER SPECIALTY, LUZ 786.50 UNSPECIFIED CHEST PAIN 10/28/2013 VIVI MANAGER SPECIALTY, LUZ 786.50 UNSPECIFIED CHEST PAIN 10/28/2013 MICHAEL RODRIGUEZ DO K 786.50 UNSPECIFIED CHEST PAIN 10/28/2013 VIVI MANAGER SPECIALTY, LUZ 786.50 UNSPECIFIED CHEST PAIN 10/28/2013 JHOAN PACE, RAUDEL S 786.50 UNSPECIFIED CHEST PAIN 12/16/2013 ERICA THAO MD 250.02 DIABETES II UNCONTROLLED (UNCOMPLICATED) 12/16/2013 JHOAN PACE RAUDEL S 250.02 DIABETES II UNCONTROLLED (UNCOMPLICATED ) 12/16/2013 ISELA STAPLES APRNNDA S 250.02 DIABETES II UNCONTROLLED (UNCOMPLICATED ) 12/16/2013 MICHAEL RODRIGUEZ DO 250.02 DIABETES II UNCONTROLLED (UNCOMPLICATED) 12/16/2013 ESMER STAPLES APRNA S 250.02 DIABETES II UNCONTROLLED (UNCOMPLICATED ) 12/16/2013 ERICA THAO MD 250.02 DIABETES II UNCONTROLLED (UNCOMPLICATED) 12/16/2013 JHOAN PACE, RAUDEL S 250.02 DIABETES II UNCONTROLLED (UNCOMPLICATED ) 12/16/2013 MICAH TRINIDAD APRNETTE 250.02 DIABETES II UNCONTROLLED (UNCOMPLICATED) 12/16/2013 VIVI MANAGER SPECIALTY, LUZ 250.02 DIABETES II UNCONTROLLED (UNCOMPLICATED) 12/16/2013 MICHAEL RODRIGUEZ DO 250.02 DIABETES II UNCONTROLLED (UNCOMPLICATED) 12/16/2013 MICAH TRINIDAD APRNETTE 250.02 DIABETES II UNCONTROLLED (UNCOMPLICATED) 12/16/2013 ISELA STAPLES APRNNDA S 250.02 DIABETES II UNCONTROLLED (UNCOMPLICATED ) 01/13/2014 ISELA STAPLES APRNNDA S 250.00 DIABETES II CONTROLLED (UNCOMPLICATED) 01/13/2014 JHOAN PACE, RAUDEL S 250.00 DIABETES II CONTROLLED (UNCOMPLICATED) 01/13/2014 MICHAEL RODRIGUEZ DO 250.00 DIABETES II CONTROLLED (UNCOMPLICATED) 01/13/2014 JHOAN PACE, RAUDEL S 250.00 DIABETES II CONTROLLED (UNCOMPLICATED) 01/13/2014 ERICA THAO MD 250.00 DIABETES II CONTROLLED (UNCOMPLICATED) 01/13/2014 JHOAN PACE, RAUDEL S 250.00 DIABETES II CONTROLLED (UNCOMPLICATED) 01/13/2014 MICAH TRINIDAD APRNETTE 250.00 DIABETES II CONTROLLED (UNCOMPLICATED) 01/13/2014 MICAH TRINIDAD APRNETTE 250.00 DIABETES II CONTROLLED (UNCOMPLICATED) 01/13/2014 MICHAEL RODRIGUEZ DO 250.00 DIABETES II CONTROLLED (UNCOMPLICATED) 01/13/2014 MICAH TRINIDAD APRNETTE 250.00 DIABETES II CONTROLLED (UNCOMPLICATED) 01/13/2014 ESMER STAPLES APRNA S 250.00 DIABETES II CONTROLLED (UNCOMPLICATED) 03/17/2014 MICHAEL RODRIGUEZ DO 296.24 MAJOR DEPRESSIVE AFFECTIVE DISORDER SINGLE EPISODE SEVERE DEGREE SPECIFIED WITH PSYCHOTIC BEHAVIOR 03/17/2014 MICHAEL RODRIGUEZ DO V10.3 PERSONAL HISTORY OF MALIGNANT NEOPLASM OF BREAST 03/17/2014 JHOAN MANAGER SPECIALTY, RAUDEL S 296.24 MAJOR DEPRESSIVE AFFECTIVE DISORDER SINGLE EPISODE SEVERE DEGREE SPECIFIED WITH PSYCHOTIC BEHAVIOR 03/17/2014 ISELA STAPLES APRNNDA S V10.3 PERSONAL HISTORY OF MALIGNANT NEOPLASM OF BREAST 03/17/2014 ERICA THAO MD 296.24 MAJOR DEPRESSIVE AFFECTIVE DISORDER SINGLE EPISODE SEVERE DEGREE SPECIFIED WITH PSYCHOTIC BEHAVIOR 03/17/2014 ERICA THAO MD V10.3 PERSONAL HISTORY OF MALIGNANT NEOPLASM OF BREAST 03/17/2014 ESMER STAPLES APRNA S 296.24 MAJOR DEPRESSIVE AFFECTIVE DISORDER SINGLE EPISODE SEVERE DEGREE SPECIFIED WITH PSYCHOTIC BEHAVIOR 03/17/2014 ISELA STAPLES APRNNDA S V10.3 PERSONAL HISTORY OF MALIGNANT NEOPLASM OF BREAST 03/17/2014 VIVI MANAGER SPECIALTY, LUZ 296.24 MAJOR DEPRESSIVE AFFECTIVE DISORDER SINGLE EPISODE SEVERE DEGREE SPECIFIED WITH PSYCHOTIC BEHAVIOR 03/17/2014 VIVI MANAGER SPECIALTY, LUZ V10.3 PERSONAL HISTORY OF MALIGNANT NEOPLASM OF BREAST 03/17/2014 VIVI MANAGER SPECIALTY, LUZ 296.24 MAJOR DEPRESSIVE AFFECTIVE DISORDER SINGLE EPISODE SEVERE DEGREE SPECIFIED WITH PSYCHOTIC BEHAVIOR 03/17/2014 VIVI MANAGER SPECIALTY, LUZ V10.3 PERSONAL HISTORY OF MALIGNANT NEOPLASM OF BREAST 03/17/2014 RODRIGUEZ DO MICHAEL K 296.24 MAJOR DEPRESSIVE AFFECTIVE DISORDER SINGLE EPISODE SEVERE DEGREE SPECIFIED WITH PSYCHOTIC BEHAVIOR 03/17/2014 RODRIGUEZ DO MICHAEL K V10.3 PERSONAL HISTORY OF MALIGNANT NEOPLASM OF BREAST 03/17/2014 VIVI MANAGER SPECIALTY, LUZ 296.24 MAJOR DEPRESSIVE AFFECTIVE DISORDER SINGLE EPISODE SEVERE DEGREE SPECIFIED WITH PSYCHOTIC BEHAVIOR 03/17/2014 VIVI MANAGER SPECIALTY, LUZ V10.3 PERSONAL HISTORY OF MALIGNANT NEOPLASM OF BREAST 03/17/2014 ISELA STAPLSE APRNNDA S 296.24 MAJOR DEPRESSIVE AFFECTIVE DISORDER SINGLE EPISODE SEVERE DEGREE SPECIFIED WITH PSYCHOTIC BEHAVIOR 03/17/2014 ISELA STAPLES APRNNDA S V10.3 PERSONAL HISTORY OF MALIGNANT NEOPLASM OF BREAST 04/28/2014 ESMER STAPLES APRNA S 300.3 OBSESSIVE-COMPULSIVE DISORDERS 04/28/2014 ERICA THAO MD 300.3 OBSESSIVE-COMPULSIVE DISORDERS 04/28/2014 ESMER STAPLES APRNA S 300.3 OBSESSIVE-COMPULSIVE DISORDERS 04/28/2014 VIVI MANAGER SPECIALTY, LUZ 300.3 OBSESSIVE-COMPULSIVE DISORDERS 04/28/2014 VIVI MANAGER SPECIALTY, LUZ 300.3 OBSESSIVE-COMPULSIVE DISORDERS 04/28/2014 CARISSA RODRIGUEZ DOA K 300.3 OBSESSIVE-COMPULSIVE DISORDERS 04/28/2014 VIVI MANAGER SPECIALTY, LUZ 300.3 OBSESSIVE-COMPULSIVE DISORDERS 04/28/2014 JHOAN MANAGER SPECIALTY, RAUDEL S 300.3 OBSESSIVE-COMPULSIVE DISORDERS 05/13/2014 JHOAN MANAGER SPECIALTY, RAUDEL S 294.11 DEMENTIA IN CONDITIONS CLASSIFIED ELSEWHERE WITH BEHAVIORAL DISTURBANCE 05/13/2014 VIVI MANAGER SPECIALTY, LUZ 294.11 DEMENTIA IN CONDITIONS CLASSIFIED ELSEWHERE WITH BEHAVIORAL DISTURBANCE 05/13/2014 VIVI MANAGER SPECIALTY, LUZ 294.11 DEMENTIA IN CONDITIONS CLASSIFIED ELSEWHERE WITH BEHAVIORAL DISTURBANCE 05/13/2014 CARISSA RODRIGUEZ DOA K 294.11 DEMENTIA IN CONDITIONS CLASSIFIED ELSEWHERE WITH BEHAVIORAL DISTURBANCE 05/13/2014 VIVI MANAGER SPECIALTY LUZ 294.11 DEMENTIA IN CONDITIONS CLASSIFIED ELSEWHERE WITH BEHAVIORAL DISTURBANCE 05/13/2014 ISELA STAPLES APRNNDA S 294.11 DEMENTIA IN CONDITIONS CLASSIFIED ELSEWHERE WITH BEHAVIORAL DISTURBANCE 05/26/2014 ERICA THAO MD 338.29 CHRONIC PAIN 05/26/2014 ISELA STAPLES APRNNDA S 338.29 CHRONIC PAIN 05/26/2014 VIVI MANAGER SPECIALTY, LUZ 338.29 CHRONIC PAIN 05/26/2014 VIVI PACE LUZ 338.29 CHRONIC PAIN 05/26/2014 MICHAEL RODRIGUEZ DO K 338.29 CHRONIC PAIN 05/26/2014 VIVI MANAGER SPECIALTY, LUZ 338.29 CHRONIC PAIN 05/26/2014 JHOAN PACE RAUDEL S 338.29 CHRONIC PAIN 08/04/2014 KEESHA ALMODOVAR, ERICA Molina Ot 724.2 08/04/2014 ERICA THAO MD Ot 780.60 08/04/2014 ERICA THAO MD Ot 788.1 08/26/2014 ERICA THAO MD Ot 276.8 09/29/2014 RAUDEL STAPLES APRN S 782.3 EDEMA 10/30/2014 Ot 250.00 10/30/2014 Ot 401.9 10/30/2014 Ot 443.9 10/30/2014 Ot 429.3 10/30/2014 Ot 786.50 10/30/2014 Ot V72.63 10/30/2014 Ot V72.81 10/30/2014 BETH ALMODOVAR, SIMON Rahman Ot V72.84 10/30/2014 KEESHA ALMODOVAR, ERICA F Ot 783.21 10/30/2014 KEESHA ALMODOVAR, ERICA F Ot 787.03 10/30/2014 KEESHA ALMODOVAR, ERICA F Ot 276.8 10/30/2014 ZEKE ALMODOVAR, ROSA ELENA Ulloa Ot 276.8 10/30/2014 KEESHA ALMODOVAR, ERICA F Ot 276.8 10/30/2014 KEESHA ALMODOVAR, ERICA F Ot 276.8 10/30/2014 KEESHA ALMODOVAR, ERICA F Ot 514 10/30/2014 KEESHA ALMODOVAR, ERICA F Ot 787.01 10/30/2014 KEESHA ALMODOVAR, ERICA F Ot 789.04 10/30/2014 KEESHA ALMODOVAR, ERICA F Ot 724.2 10/30/2014 KEESHA ALMODOVAR, ERICA F Ot 780.60 10/30/2014 KEESHA ALMODOVAR, ERICA F Ot 788.1 10/30/2014 Ot 250.00 10/30/2014 Ot 401.9 10/30/2014 Ot 443.9 10/30/2014 Ot 429.3 10/30/2014 Ot 786.50 10/30/2014 Ot V72.63 10/30/2014 Ot V72.81 10/30/2014 BETH ALMODOVAR, SIMON Rahman Ot V72.84 10/30/2014 KEESHA ALMODOVAR, ERICA Molina Ot 783.21 10/30/2014 KEESHA ALMODOVAR, ERICA Molina Ot 787.03 10/30/2014 KEESHA ALMODOVAR, ERICA F Ot 276.8 10/30/2014 ZEKE ALMODOVAR, ROSA ELENA Ulloa Ot 276.8 10/30/2014 KEESHA ALMODOVAR, ERICA F Ot 276.8 10/30/2014 KEESHA ALMODOVAR, ERICA F Ot 276.8 10/30/2014 KEESHA ALMODOVAR, ERICA F Ot 514 10/30/2014 KEESHA ALMODOVAR, ERICA F Ot 787.01 10/30/2014 KEESHA ALMODOVAR, ERICA F Ot 789.04 10/30/2014 KEESHA ALMODOVAR, ERICA F Ot 724.2 10/30/2014 KEESHA ALMODOVAR, ERICA F Ot 780.60 10/30/2014 KEESHA ALMODOVAR, ERICA F Ot 788.1 11/01/2014 MICHAEL RODRIGUEZ DO Ot 244.9 11/01/2014 RODRIGUEZ DO, MICHAEL K Ot 250.62 11/01/2014 RODRIGUEZ DO, MICHAEL K Ot 272.4 11/01/2014 RODRIGUEZ DO, MICHAEL K Ot 276.8 11/01/2014 RODRIGUEZ DO, MICHAEL K Ot 294.20 11/01/2014 RODRIGUEZ DO, MICHAEL K Ot 300.00 11/01/2014 RODRIGUEZ DO, MICHAEL K Ot 311 11/01/2014 RODRIGUEZ DO, MICHAEL K Ot 403.00 11/01/2014 RODRIGUEZ DO, MICHAEL K Ot 414.01 11/01/2014 RODRIGUEZ DO, MICHAEL K Ot 428.0 11/01/2014 RODRIGUEZ DO, MICHAEL K Ot 428.31 11/01/2014 RODRIGUEZ DO, MICHAEL K Ot 437.2 11/01/2014 RODRIGUEZ DO, MICHAEL K Ot 493.90 11/01/2014 RODRIGUEZ DO, MICHAEL K Ot 530.81 11/01/2014 RODRIGUEZ DO, MICHAEL K Ot 536.3 11/01/2014 RODRIGUEZ DO, MICHAEL K Ot 585.3 11/01/2014 RODRIGUEZ DO, MICHAEL K Ot 782.3 11/01/2014 RODRIGUEZ DO, MICHAEL K Ot 786.52 11/01/2014 RODRIGUEZ DO, MICHAEL K Ot V58.67 11/02/2014 RODRIGUEZ DO, MICHAEL K Ot 244.9 11/02/2014 RODRIGUEZ DO, MICHAEL K Ot 250.62 11/02/2014 RODRIGUEZ DO, MICHAEL K Ot 272.4 11/02/2014 RODRIGUEZ DO, MCIHAEL K Ot 276.8 11/02/2014 RODRIGUEZ DO, MICHAEL K Ot 294.20 11/02/2014 RODRIGUEZ DO, MICHAEL K Ot 300.00 11/02/2014 RODRIGUEZ DO, MICHAEL K Ot 311 11/02/2014 RODRIGUEZ DO, MICHAEL K Ot 403.00 11/02/2014 RODRIGUEZ DO, MICHAEL K Ot 414.01 11/02/2014 RODRIGUEZ DO, MICHAEL K Ot 428.0 11/02/2014 RODRIGUEZ DO, MICHAEL K Ot 428.31 11/02/2014 RODRIGUEZ DO, MICHAEL K Ot 437.2 11/02/2014 RODRIGUEZ DO, MICHAEL K Ot 493.90 11/02/2014 RODRIGUEZ DO, MICHAEL K Ot 530.81 11/02/2014 RODRIGUEZ DO, MICHAEL K Ot 536.3 11/02/2014 RODRIGUEZ DO, MICHAEL K Ot 585.3 11/02/2014 RODRIGUEZ DO, MICHAEL K Ot 782.3 11/02/2014 RODRIGUEZ DO, MICHAEL K Ot 786.52 11/02/2014 RODRIGUEZ DO, MICHAEL K Ot V58.67 11/03/2014 RODRIGUEZ DO, MICHAEL K Ot 244.9 11/03/2014 RODRIGUEZ DO, IMCHAEL K Ot 250.62 11/03/2014 RODRIGUEZ DO, MICHAEL K Ot 272.4 11/03/2014 RODRIGUEZ DO, MICHAEL K Ot 276.8 11/03/2014 RODRIGUEZ DO, MICHAEL K Ot 294.20 11/03/2014 RODRIGUEZ DO, MICHAEL K Ot 300.00 11/03/2014 RODRIGUEZ DO, MICHAEL K Ot 311 11/03/2014 RODRIGUEZ DO, MICHAEL K Ot 403.00 11/03/2014 RODRIGUEZ DO, MICHAEL K Ot 414.01 11/03/2014 RODRIGUEZ DO, MICHAEL K Ot 428.0 11/03/2014 RODRIGUEZ DO, MICHAEL K Ot 428.31 11/03/2014 RODRIGUEZ DO, MICHAEL K Ot 437.2 11/03/2014 RODRIGUEZ DO, MICHAEL K Ot 493.90 11/03/2014 RODRIGUEZ DO, MICHAEL K Ot 530.81 11/03/2014 RODRIGUEZ DO, MICHAEL K Ot 536.3 11/03/2014 RODRIGUEZ DO, MICHAEL K Ot 585.3 11/03/2014 RODRIGUEZ DO, MICHAEL K Ot 782.3 11/03/2014 RODRIGUEZ DO, MICHAEL K Ot 786.52 11/03/2014 RODRIGUEZ DO, MICHAEL K Ot V58.67 11/04/2014 RODRIGUEZ DO, MICHAEL K Ot 244.9 11/04/2014 RODRIGUEZ DO, MICHAEL K Ot 250.62 11/04/2014 RODRIGUEZ DO, MICHAEL K Ot 272.4 11/04/2014 RODRIGUEZ DO, MICHAEL K Ot 276.8 11/04/2014 RODRIGUEZ DO, MICHAEL K Ot 294.20 11/04/2014 RODRIGUEZ DO, MICHAEL K Ot 300.00 11/04/2014 RODRIGUEZ DO, MICHAEL K Ot 311 11/04/2014 RODRIGUEZ DO, MICHAEL K Ot 403.00 11/04/2014 RODRIGUEZ DO, MICHAEL K Ot 414.01 11/04/2014 RODRIGUEZ DO, MICHAEL K Ot 428.0 11/04/2014 RODRIGUEZ DO, MICHAEL K Ot 428.31 11/04/2014 RODRIGUEZ DO, MICHAEL K Ot 437.2 11/04/2014 RODRIGUEZ DO, MICHAEL K Ot 493.90 11/04/2014 RODRIGUEZ DO, MICHAEL K Ot 530.81 11/04/2014 RODRIGUEZ DO, MICHAEL K Ot 536.3 11/04/2014 RODRIGUEZ DO, MICHAEL K Ot 585.3 11/04/2014 RODRIGUEZ DO, MICHAEL K Ot 782.3 11/04/2014 RODRIGUEZ DO, MICHAEL K Ot 786.52 11/04/2014 RODRIGUEZ DO, MICHAEL K Ot V58.67 11/04/2014 RODRIGUEZ DO, MICHAEL K Ot 244.9 HYPOTHYROIDISM NOS 11/04/2014 RODRIGUEZ DO, MICHAEL K Ot 250.62 DIAB W NEURO MANIFEST, TYPE II OR UNSPEC 11/04/2014 RODRIGUEZ DO, MICHAEL K Ot 272.4 HYPERLIPIDEMIA NEC/NOS 11/04/2014 RODRIGUEZ DO, MICHAEL K Ot 276.8 HYPOPOTASSEMIA 11/04/2014 RODRIGUEZ DO, MICHAEL K Ot 294.20 DEMENTIA, UNSPECIFIED, 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 11/04/2014 RODRIGUEZ DO, MICHAEL K Ot 300.00 ANXIETY STATE NOS 11/04/2014 RODRIGUEZ DO, MICHAEL K Ot 311 DEPRESSIVE DISORDER NEC 11/04/2014 RODRIGUEZ DO, MICHAEL K Ot 403.00 HYPTNSV CHR KID DIS, MALIGN, W CHR KD ST 11/04/2014 RODRIGUEZ DO, MICHAEL K Ot 414.01 CORONARY ATHEROSCLEROSIS OF [place] CORON 11/04/2014 RODRIGUEZ DO, MICHAEL K Ot 428.0 CONGESTIVE HEART FAILURE NOS 11/04/2014 RODRIGUEZ DO, MICHAEL K Ot 428.31 ACUTE DIASTOLIC HRT FAILURE 11/04/2014 RODRIGUEZ DO, MICHAEL K Ot 437.2 HYPERTENS ENCEPHALOPATHY 11/04/2014 RODRIGUEZ DO, MICHAEL K Ot 493.90 ASTHMA, UNSPECIFIED 11/04/2014 RODRIGUEZ DO, MICHAEL K Ot 530.81 ESOPHAGEAL REFLUX 11/04/2014 RODRIGUEZ DO, MICHAEL K Ot 536.3 GASTROPARESIS 11/04/2014 RODRIGUEZ DO, MICHAEL K Ot 584.9 ACUTE RENAL FAILURE, UNSPECIFIED 11/04/2014 RODRIGUEZ DO, MICHAEL K Ot 585.3 CHRONIC KIDNEY DISEASE, STAGE III (MODER 11/04/2014 RODRIGUEZ DO, MICHAEL K Ot 782.3 EDEMA 11/04/2014 RODRIGUEZ DO, MICHAEL K Ot 786.52 PAINFUL RESPIRATION 11/04/2014 MICHAEL RODRIGUEZ DO Ot V58.67 LONG-TERM (CURRENT) USE OF INSULIN 06/03/2015 ROSA ELENA ALANIS MD Ot E11.9 TYPE 2 DIABETES MELLITUS WITHOUT COMPLIC 06/03/2015 ROSA ELENA ALANIS MD Ot I12.9 HYPERTENSIVE CHRONIC KIDNEY DISEASE W ST 06/03/2015 ROSA ELENA ALANIS MD Ot N18.4 CHRONIC KIDNEY DISEASE, STAGE 4 (SEVERE) 06/03/2015 ROSA ELENA ALANIS MD Ot R07.9 CHEST PAIN, UNSPECIFIED 06/03/2015 ROSA ELENA ALANIS MD Ot R79.89 OTHER SPECIFIED ABNORMAL FINDINGS OF BLO 06/03/2015 ROSA ELENA ALANIS MD, Ot Z79.4 [facility] (CURRENT) USE OF INSULIN 06/09/2015 KEVIN JACOBS MD Ot E11.9 TYPE 2 DIABETES MELLITUS WITHOUT COMPLIC 06/09/2015 KEVIN JACOBS MD Ot I10 ESSENTIAL (PRIMARY) HYPERTENSION 06/09/2015 KEVIN JACOBS MD Ot I44.0 ATRIOVENTRICULAR BLOCK, FIRST DEGREE 06/09/2015 KEVIN JACOBS MD Ot I51.7 CARDIOMEGALY 06/09/2015 KEVIN JACOBS MD Ot R07.9 CHEST PAIN, UNSPECIFIED 06/09/2015 KEVIN JACOBS MD Ot Z59.3 [facility] 06/09/2015 KEVIN JACOBS MD Ot Z79.4 [facility] (CURRENT) USE OF INSULIN 06/09/2015 KEVIN JACOBS MD Ot 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 06/09/2015 KEVIN JACOBS MD Ot Z79.899 OTHER [facility] (CURRENT) DRUG THERAPY 06/10/2015 Ot 250.00 06/10/2015 Ot 401.9 06/10/2015 Ot 443.9 06/10/2015 Ot 429.3 06/10/2015 Ot 786.50 06/10/2015 Ot V72.63 06/10/2015 Ot V72.81 06/10/2015 BETH ALMODOVAR, SIMON Rahman Ot V72.84 06/10/2015 KEESHA ALMODOVAR, ERICA Jesse Ot 783.21 06/10/2015 KEESHA ALMODOVAR, ERICA Jesse Ot 787.03 06/10/2015 KEESHA ALMODOVAR, ERICA Molina Ot 276.8 06/10/2015 ZEKE ALMODOVAR, ROSA ELENA Ulloa Ot 276.8 06/10/2015 KEESHA ALMODOVAR, ERICA Jesse Ot 276.8 06/10/2015 KEESHA ALMODOVAR, ERICA Jesse Ot 276.8 06/10/2015 KEESHA ALMODOVAR, ERICA Jesse Ot 514 06/10/2015 KEESHA ALMODOVAR, ERICA Molina Ot 787.01 06/10/2015 KEESHA ALMODOVAR, ERICA Molina Ot 789.04 06/10/2015 KEESHA ALMODOVAR, ERICA Jesse Ot 724.2 06/10/2015 KEESHA ALMODOVAR, ERICA Jesse Ot 780.60 06/10/2015 KEESHA ALMODOVAR, ERICA Molina Ot 788.1 06/28/2015 CHAVA ALMODOVAR FACC, ALI FACP CCDS Ot E11.22 06/28/2015 CHAVA ALMODOVAR FACC, ALI FACP CCDS Ot E11.9 06/28/2015 CHAVA ALMODOVAR FACC, ALI FACP CCDS Ot I10 06/28/2015 CHAVA ALMODOVAR FACC, ALI FACP CCDS Ot I25.10 07/12/2015 CHAVA ALMODOVAR FACC, ALI FACP CCDS Ot E11.22 07/12/2015 CHAVA ALMODOVAR FACC, ALI FACP CCDS Ot E11.9 07/12/2015 CHAVA ALMODOVAR FACC, ALI FACP CCDS Ot I10 07/12/2015 CHAVA ALMODOVAR FACC, ALI FACP CCDS Ot I25.10 06/27/2016 Ot 429.3 CARDIOMEGALY 06/27/2016 Ot 786.50 CHEST PAIN NOS 06/27/2016 Ot V72.63 PRE-PROCEDURAL LABORATORY EXAMINATION 06/27/2016 Ot V72.81 BEHZ-WRW-EPOTBUTMP CARDIOVASCULAR 06/27/2016 BETH ALMODOVAR, SIMON Rahman Ot V72.84 EXAM PRE-OPERATIVE NOS 06/27/2016 KEESHA ALMODOVAR, ERICA Molina Ot 783.21 LOSS OF WEIGHT 06/27/2016 KEESHA ALMODOVAR, ERICA Molina Ot 787.03 VOMITING ALONE 06/27/2016 KEESHA ALMODOVAR, ERICA Molina Ot 276.8 HYPOPOTASSEMIA 06/27/2016 ROSA ELENA ALANIS MD N Ot 276.8 HYPOPOTASSEMIA 06/27/2016 ERICA THAO MD Ot 276.8 HYPOPOTASSEMIA 06/27/2016 ERICA THAO MD Ot 276.8 HYPOPOTASSEMIA 06/27/2016 ERICA THAO MD Ot 514 PULM CONGEST/HYPOSTASIS 06/27/2016 ERICA THAO MD Ot 787.01 NAUSEA WITH VOMITING 06/27/2016 ERICA THAO MD Ot 789.04 ABDOMINAL PAIN, LEFT LOWER QUADRANT 06/27/2016 ERICA THAO MD Ot 724.2 LUMBAGO 06/27/2016 ERICA THAO MD Ot 780.60 FEVER, UNSPECIFIED 06/27/2016 ERICA THAO MD Ot 788.1 DYSURIA 06/27/2016 CHAVA ALMODOVAR FACC, ALI FACP CCDS Ot E11.22 TYPE 2 DIABETES MELLITUS W DIABETIC ENVIRONMENTAL AIDE 06/27/2016 CHAVA ALMODOVAR FACC, ALI FACP CCDS Ot E11.9 TYPE 2 DIABETES MELLITUS WITHOUT COMPLIC 06/27/2016 CHAVA ALMODOVAR FACC, ALI FACP CCDS Ot I10 ESSENTIAL (PRIMARY) HYPERTENSION 06/27/2016 CHAVA ALMODOVAR FACC, ALI FACP CCDS Ot I25.10 ATHSCL HEART DISEASE OF [place] CORONARY 06/29/2016 AMY MANCILLA MD Ot E03.9 HYPOTHYROIDISM, UNSPECIFIED 06/29/2016 AMY MANCILLA MD Ot E11.40 TYPE 2 DIABETES MELLITUS WITH DIABETIC N 06/29/2016 AMY MANCILLA MD Ot E11.43 TYPE 2 DIABETES W DIABETIC AUTONOMIC (PO 06/29/2016 AMY MANCILLA MD Ot E11.65 TYPE 2 DIABETES MELLITUS WITH HYPERGLYCE 06/29/2016 AMY MANCILLA MD Ot E87.6 HYPOKALEMIA 06/29/2016 AMY MANCILLA MD Ot F01.50 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 06/29/2016 AMY MANCILLA MD Ot 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, W S 06/29/2016 AMY MANCILLA MD Ot I16.0 HYPERTENSIVE URGENCY 06/29/2016 AMY MANCILLA MD Ot I25.10 ATHSCL HEART DISEASE OF [place] CORONARY 06/29/2016 AMY MANCILLA MD, Ot I50.9 HEART FAILURE, UNSPECIFIED 06/29/2016 AMY MANCILLA MD, Ot J45.909 UNSPECIFIED ASTHMA, UNCOMPLICATED 06/29/2016 AMY MANCILLA MD, Ot K92.0 HEMATEMESIS 06/29/2016 AMY MANCILLA MD, Ot N17.9 ACUTE KIDNEY FAILURE, UNSPECIFIED 06/29/2016 AMY MANCILLA MD, Ot N18.3 CHRONIC KIDNEY DISEASE, STAGE 3 (MODERAT 06/29/2016 AMY MANCILLA MD, Ot R07.9 CHEST PAIN, UNSPECIFIED 06/29/2016 AMY MANCILLA MD, Ot R10.13 EPIGASTRIC PAIN 06/29/2016 AMY MANCILLA MD, Ot Z66 DO NOT RESUSCITATE 06/29/2016 AMY MANCILLA MD, Ot Z79.4 [facility] (CURRENT) USE OF INSULIN 06/29/2016 AMY MANCILLA MD, Ot Z87.891 PERSONAL HISTORY OF NICOTINE DEPENDENCE 06/29/2016 AMY MANCILLA MD, Ot Z91.14 PATIENT'S OTHER NONCOMPLIANCE WITH MEDIC 06/29/2016 AMY MANCILLA MD, Ot D63.1 ANEMIA IN CHRONIC KIDNEY DISEASE 06/29/2016 AMY MANCILLA MD, Ot E03.9 HYPOTHYROIDISM, UNSPECIFIED 06/29/2016 AMY MANCILLA MD, Ot E11.43 TYPE 2 DIABETES W DIABETIC AUTONOMIC (PO 06/29/2016 AMY MANCILLA MD, Ot E11.65 TYPE 2 DIABETES MELLITUS WITH HYPERGLYCE 06/29/2016 AMY MANCILLA MD, Ot E87.6 HYPOKALEMIA 06/29/2016 AMY MANCILLA MD, Ot F01.50 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 06/29/2016 AMY MANCILLA MD, Ot 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, W S 06/29/2016 AMY MANCILLA MD, Ot I16.1 HYPERTENSIVE EMERGENCY 06/29/2016 AMY MANCILLA MD, Ot I25.10 ATHSCL HEART DISEASE OF [place] CORONARY 06/29/2016 AMY MANCILLA MD, Ot I50.9 HEART FAILURE, UNSPECIFIED 06/29/2016 AMY MANCILLA MD, Ot J45.909 UNSPECIFIED ASTHMA, UNCOMPLICATED 06/29/2016 AMY MANCILLA MD Ot K92.0 HEMATEMESIS 06/29/2016 AMY MANCILLA MD Ot N17.9 ACUTE KIDNEY FAILURE, UNSPECIFIED 06/29/2016 AMY MANCILLA MD Ot N18.3 CHRONIC KIDNEY DISEASE, STAGE 3 (MODERAT 06/29/2016 AMY MANCILLA MD Ot R07.89 OTHER CHEST PAIN 06/29/2016 AMY MANCILLA MD Ot Z66 DO NOT RESUSCITATE 06/29/2016 AMY MANCILLA MD Ot Z79.4 [facility] (CURRENT) USE OF INSULIN 06/29/2016 AMY MANCILLA MD Ot Z87.891 PERSONAL HISTORY OF NICOTINE DEPENDENCE 06/29/2016 AMY MANCILLA MD Ot Z91.14 PATIENT'S OTHER NONCOMPLIANCE WITH MEDIC 07/08/2016 WINSOME GALLAGHER APRN Ot D64.9 ANEMIA, UNSPECIFIED 07/08/2016 WINSOME GALLAGHER APRN Ot E11.9 TYPE 2 DIABETES MELLITUS WITHOUT COMPLIC 07/08/2016 WINSOME GALLAGHER APRN Ot I12.9 HYPERTENSIVE CHRONIC KIDNEY DISEASE W ST 07/08/2016 WINSOME GALLAGHER APRN Ot I51.7 CARDIOMEGALY 07/08/2016 WINSOME GALLAGHER APRN Ot N18.9 CHRONIC KIDNEY DISEASE, UNSPECIFIED 07/08/2016 WINSOME GALLAGHER APRN Ot R07.9 CHEST PAIN, UNSPECIFIED 07/08/2016 WINSOME GALLAGHER APRN Ot Z79.4 [employer] ENG[employer]IST (CURRENT) USE OF INSULIN 07/08/2016 WINSOME GALLAGHER APRN Ot Z79.82 [facility] (CURRENT) USE OF ASPIRIN 07/08/2016 WINSOME GALLAGHER APRN Ot Z79.899 OTHER [facility] (CURRENT) DRUG THERAPY 07/08/2016 WINSOME GALLAGHER APRN Ot Z85.3 PERSONAL HISTORY OF MALIGNANT NEOPLASM O 07/08/2016 WINSOME GALLAGHER APRN Ot Z87.891 PERSONAL HISTORY OF NICOTINE DEPENDENCE 07/08/2016 WINSOME GALLAGHER APRN Ot Z90.12 ACQUIRED ABSENCE OF LEFT BREAST AND NIPP 07/10/2016 WINSOME GALLAGHER APRN Ot D64.9 ANEMIA, UNSPECIFIED 07/10/2016 WINSOME GALLAGHER APRN Ot E11.9 TYPE 2 DIABETES MELLITUS WITHOUT COMPLIC 07/10/2016 WINSOME GALLAGHER MANAGER SPECIALTY Ot I12.9 HYPERTENSIVE CHRONIC KIDNEY DISEASE W ST 07/10/2016 WINSOME GALLAGHER MANAGER SPECIALTY Ot I51.7 CARDIOMEGALY 07/10/2016 WINSOME GALLAGHER MANAGER SPECIALTY Ot N18.9 CHRONIC KIDNEY DISEASE, UNSPECIFIED 07/10/2016 WINSOME GALLAGHER MANAGER SPECIALTY Ot R07.9 CHEST PAIN, UNSPECIFIED 07/10/2016 WINSOME GALLAGHER MANAGER SPECIALTY Ot 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21 LOSS OF WEIGHT 12/19/2016 ERICA THAO MD Ot 787.03 VOMITING ALONE 12/19/2016 ERICA THAO MD Ot 276.8 HYPOPOTASSEMIA 12/19/2016 ZEKE ALMODOVAR, ROSA ELENA Ulloa Ot 276.8 HYPOPOTASSEMIA 12/19/2016 ERICA THAO MD Ot 276.8 HYPOPOTASSEMIA 12/19/2016 REICA THAO MD Ot 276.8 HYPOPOTASSEMIA 12/19/2016 ERICA THAO MD Ot 514 PULM CONGEST/HYPOSTASIS 12/19/2016 ERICA THAO MD Ot 787.01 NAUSEA WITH VOMITING 12/19/2016 ERICA THAO MD Ot 789.04 ABDOMINAL PAIN, LEFT LOWER QUADRANT 12/19/2016 ERICA THAO MD Ot 724.2 LUMBAGO 12/19/2016 ERICA THAO MD Ot 780.60 FEVER, UNSPECIFIED 12/19/2016 ERICA THAO MD Ot 788.1 DYSURIA 12/19/2016 CHAVA ALMODOVAR FACC, ALIA PONCEP CCDS Ot E11.22 TYPE 2 DIABETES MELLITUS W DIABETIC ENVIRONMENTAL AIDE 12/19/2016 CHAVA ALMODOVAR FACC, ALIA FACP CCDS Ot E11.9 TYPE 2 DIABETES MELLITUS WITHOUT COMPLIC 12/19/2016 CHAVA ALMODOVAR FACC, ALIA WILLS CCDS Ot I10 ESSENTIAL (PRIMARY) HYPERTENSION 12/19/2016 CHAVA AMLODOVAR FACC, ALIA PONCEP CCDS Ot I25.10 ATHSCL HEART DISEASE OF [place] CORONARY 01/09/2017 BAIMA, ELEAZAR L [employer]IOR [employer] ARCHITECT Ot I10 ESSENTIAL (PRIMARY) HYPERTENSION 01/09/2017 BAIMA, ELEAZAR L SENIOR [employer] SOL[employer] ARCHITECT Ot I25.10 ATHSCL HEART DISEASE OF [place] CORONARY 01/09/2017 BAIMA, ELEAZAR L SENIOR [employer] ARCHITECT Ot I35.0 NONRHEUMATIC AORTIC (VALVE) STENOSIS 01/09/2017 BAIMA, ELEAZAR L SENIOR [employer] ARCHITECT Ot I51.7 CARDIOMEGALY 01/09/2017 BAIMA, ELEAZAR L SENIOR [employer] ARCHITECT Ot I65.23 OCCLUSION AND STENOSIS OF [place]ILATERAL [place] 01/15/2017 BAIMA, ELEAZAR L SENIOR [employer] ARCHITECT Ot I10 ESSENTIAL (PRIMARY) HYPERTENSION 01/15/2017 BAIMA, ELEAZAR L SENIOR [employer] ARCHITECT Ot I25.10 ATHSCL HEART DISEASE OF [place] CORONARY 01/15/2017 BAIMA, ELEAZAR L SENIOR [employer] ARCHITECT Ot I35.0 NONRHEUMATIC AORTIC (VALVE) STENOSIS 01/15/2017 BAIMA, ELEAZAR L SENIOR [employer] ARCHITECT Ot I51.7 CARDIOMEGALY 01/15/2017 BAIMA, ELEAZAR L SENIOR [employer] ARCHITECT Ot I65.23 OCCLUSION AND STENOSIS OF [place]ILATERAL [place] Procedures Code Description Performed By Performed On 38.91 ARTERIAL CATHETERIZATION 04/16/2012 51.23 LAPAROSCOPIC CHOLECYSTECTOMY 04/17/2012 70425 ROUTINE VENIPUNCTURE 08/07/2012 [id number] GFR CALC (RESULT ONLY) 08/07/2012 44143 LIPID PANEL 08/07 22573 CMP 08/07/2012 00890 ROUTINE VENIPUNCTURE 08/25/2012 1321152 GFR CALC (RESULT ONLY) 08/25/2012 12540 BMP 08/25/2012 64796 ROUTINE VENIPUNCTURE 10/31/2012 87932 A1C (IN-HOUSE) 22172 CMP 10/31/2012 5242281 GFR CALC (RESULT ONLY) 10/31/2012 98856 A1C (IN-HOUSE) 34043 ROUTINE VENIPUNCTURE 04/22/2013 78146 EKG, TRACING (IN-HOUSE) 04/22/2013 91096 CBC 04/22/2013 35521 CMP 04/22/2013 80057 LIPID PANEL 04/22 38898 MAGNESIUM 2012 4330038 GFR CALC (RESULT ONLY) 04/22/2013 49157 TSH 04/22/2013 Cardiolog Alia Mendez 04/23/2013 General S Simon Seay 04/23/2013 15251 ROUTINE VENIPUNCTURE 06/22/2013 22817 GASTRIC EMPTYING STUDY 06/23/2013 2229670 GFR CALC (RESULT ONLY) 06/23/2013 09115 CMP 06/23/2013 45.16 ESOPHAGOGASTRODUODENOSCOPY [EGD] W/CLOSE 07/14/2013 [address] ABDOMEN & PELVIS W/ & W/O CONTRAST 10/15/2013 Results Test Result Range Complete blood count (CBC) with automated white blood cell (WBC) differential - 06/27/16 06:35 Blood leukocytes automated count (number/volume) 13.9 10*3/ uL 4.3-11.0 Blood erythrocytes automated count (number/volume) 3.74 10*6 /uL 4.35-5.85 Venous blood hemoglobin measurement (mass/volume) 10.1 g/dL 11.5-16.0 Blood hematocrit (volume fraction) 30 % 35-52 Automated erythrocyte mean corpuscular volume 79 [foz_us] 80-99 Automated erythrocyte mean corpuscular hemoglobin (mass per erythrocyte) 27 pg 25-34 Automated erythrocyte mean corpuscular hemoglobin concentration measurement ( mass/volume) 34 g/dL 32-36 Automated erythrocyte distribution width ratio 14.2 % 10.0-14.5 Automated blood platelet count (count/volume) 409 10*3/uL 130-400 Automated blood platelet mean volume measurement 10.5 [foz_ us] 7.4-10.4 Automated blood neutrophils/100 leukocytes 88 % 42-75 Automated blood lymphocytes/100 leukocytes 8 % 12-44 Blood monocytes/100 leukocytes 4 % 0-12 Automated blood eosinophils/100 leukocytes 0 % 0-10 Automated blood basophils/100 leukocytes 0 % 0-10 Blood neutrophils automated count (number/volume) 12.2 10*3 1.8-7.8 Blood lymphocytes automated count (number/volume) 1.1 10*3 1.0-4.0 Blood monocytes automated count (number/volume) 0.6 10*3 0.0-1.0 Automated eosinophil count 0.0 10*3/uL 0.0-0.3 Automated blood basophil count (count/volume) 0.0 10*3/uL 0.0-0.1 PT panel in platelet poor plasma by coagulation assay - 06/27/16 06:35 Prothrombin time (PT) in platelet poor plasma by coagulation assay 13.8 s 12.2-14.7 INR in platelet poor plasma or blood by coagulation assay 1.1 0.8-1.4 Activated partial thromboplastin time (aPTT) in platelet poor plasma bycoagulation assay - 06/27/16 06:35 Activated partial thromboplastin time (aPTT) in platelet poor plasma bycoagulation assay 36 s 24-35 Lipase - 06/27/16 06:35 Lipase 21 U/L 8-78 Comprehensive metabolic panel - 06/27/16 06:35 Serum or plasma sodium measurement (moles/volume) 136 mmol/ L 135-145 Serum or plasma potassium measurement (moles/volume) 3.1 mmol/L 3.6-5.0 Serum or plasma chloride measurement (moles/volume) 99 mmol/ L 98-107 Carbon dioxide 21 mmol/L 21-32 Serum or plasma anion gap determination (moles/volume) 16 mmol/L 5-14 Serum or plasma urea nitrogen measurement (mass/volume) 33 mg/dL 7-18 Serum or plasma creatinine measurement (mass/volume) 2.72 mg /dL 0.60-1.30 Serum or plasma urea nitrogen/creatinine mass ratio 12 NRG Serum or plasma creatinine measurement with calculation of estimated glomerular filtration rate 18 NRG Serum or plasma glucose measurement (mass/volume) 339 mg/dL 70-105 Serum or plasma calcium measurement (mass/volume) 8.9 mg/dL 8.5-10.1 Serum or plasma total bilirubin measurement (mass/volume) 0.3 mg/dL 0.1-1.0 Serum or plasma alkaline phosphatase measurement (enzymatic activity/volume) 89 U/L 40-136 Serum or plasma aspartate aminotransferase measurement (enzymatic activity/ volume) 22 U/L 5-34 Serum or plasma alanine aminotransferase measurement (enzymatic activity/volume ) 20 U/L 0-55 Serum or plasma protein measurement (mass/volume) 6.7 g/dL 6.4-8.2 Serum or plasma albumin measurement (mass/volume) 3.5 g/dL 3.2-4.5 Magnesium - 06/27/16 06:35 Magnesium 1.8 mg/dL 1.8-2.4 Blood manual differential performed detection - 06/27/16 06:35 Blood monocytes/100 leukocytes 3 % NRG Manual blood segmented neutrophils/100 leukocytes 85 % NRG Blood band neutrophils/100 leukocytes 2 % NRG Manual blood lymphocytes/100 leukocytes 10 % NRG Manual eosinophils/100 leukocytes in nose 0 % NRG Manual blood basophils/100 leukocytes 0 % NRG Blood microcytes detection by light microscopy SLIGHT NRG THYROID STIMULATING HORMONE - 06/27/16 06:35 THYROID STIMULATING HORMONE 1.04 u[iU]/mL 0.35-4.94 Serum or plasma thyroxine (T4) free measurement (mass/volume) - 06/27/16 06:35 Serum or plasma thyroxine (T4) free measurement (mass/volume) 0.98 ng/dL 0.70-1.48 Serum or plasma troponin i.cardiac measurement (mass/volume) - 06/27/16 06:35 Serum or plasma troponin i.cardiac measurement (mass/volume) < ng/mL <0.30 Myoglobin, serum - 06/27/16 06:35 Myoglobin, serum 1188.2 ng/mL 10.0-92.0 Lipid 1996 panel - 06/27/16 06:35 Serum or plasma triglyceride measurement (mass/volume) 187 mg/dL <150 Serum or plasma cholesterol measurement (mass/volume) 320 mg /dL < 200 Serum or plasma cholesterol in HDL measurement (mass/volume) 45 mg/dL 40-60 Cholesterol in LDL [mass/volume] in serum or plasma by direct assay 249 mg/dL 1-129 Serum or plasma cholesterol in VLDL measurement (mass/volume) 37 mg/dL 5-40 Complete urinalysis with reflex to culture - 06/27/16 08:00 Urine color determination YELLOW NRG Urine clarity determination CLEAR NRG Urine pH measurement by test strip 8 5- 9 Specific gravity of urine by test strip 1.010 1.016-1.022 Urine protein assay by test strip, semi-quantitative 4+ NEGATIVE Urine glucose detection by automated test strip 3+ NEGATIVE Erythrocytes detection in urine sediment by light microscopy 3+ NEGATIVE Urine ketones detection by automated test strip NEGATIVE NEGATIVE Urine nitrite detection by test strip NEGATIVE NEGATIVE Urine total bilirubin detection by test strip NEGATIVE NEGATIVE Urine urobilinogen measurement by automated test strip (mass/volume) NORMAL NORMAL Urine leukocyte esterase detection by dipstick NEGATIVE NEGATIVE Automated urine sediment erythrocyte count by microscopy (number/high power field) [HPF] NRG Automated urine sediment leukocyte count by microscopy (number/high power field ) RARE NRG Bacteria detection in urine sediment by light microscopy NEGATIVE NRG Squamous epithelial cells detection in urine sediment by light microscopy 5-10 NRG Crystals detection in urine sediment by light microscopy NONE NRG Casts detection in urine sediment by light microscopy NONE NRG Mucus detection in urine sediment by light microscopy NEGATIVE NRG Complete urinalysis with reflex to culture NO NRG Serum or plasma troponin i.cardiac measurement (mass/volume) - 06/27/16 12:30 Serum or plasma troponin i.cardiac measurement (mass/volume) < ng/mL <0.30 Lipid 1996 panel - 06/28/16 03:28 Serum or plasma triglyceride measurement (mass/volume) 258 mg/dL <150 Serum or plasma cholesterol measurement (mass/volume) 291 mg /dL < 200 Serum or plasma cholesterol in HDL measurement (mass/volume) 35 mg/dL 40-60 Cholesterol in LDL [mass/volume] in serum or plasma by direct assay 213 mg/dL 1-129 Serum or plasma cholesterol in VLDL measurement (mass/volume) 52 mg/dL 5-40 Automated blood complete blood count (hemogram) panel - 06/28/16 03:28 Blood leukocytes automated count (number/volume) 12.3 10*3/ uL 4.3-11.0 Blood erythrocytes automated count (number/volume) 3.67 10*6 /uL 4.35-5.85 Venous blood hemoglobin measurement (mass/volume) 9.8 g/dL 11.5-16.0 Blood hematocrit (volume fraction) 30 % 35-52 Automated erythrocyte mean corpuscular volume 82 [foz_us] 80-99 Automated erythrocyte mean corpuscular hemoglobin (mass per erythrocyte) 27 pg 25-34 Automated erythrocyte mean corpuscular hemoglobin concentration measurement ( mass/volume) 33 g/dL 32-36 Automated erythrocyte distribution width ratio 14.9 % 10.0-14.5 Automated blood platelet count (count/volume) 388 10*3/uL 130-400 Automated blood platelet mean volume measurement 10.8 [foz_ us] 7.4-10.4 Whole blood basic metabolic panel - 06/28/16 03:28 Serum or plasma sodium measurement (moles/volume) 140 mmol/ L 135-145 Serum or plasma potassium measurement (moles/volume) 3.3 mmol/L 3.6-5.0 Serum or plasma chloride measurement (moles/volume) 106 mmol /L 98-107 Carbon dioxide 23 mmol/L 21-32 Serum or plasma anion gap determination (moles/volume) 11 mmol/L 5-14 Serum or plasma urea nitrogen measurement (mass/volume) 39 mg/dL 7-18 Serum or plasma creatinine measurement (mass/volume) 3.11 mg /dL 0.60-1.30 Serum or plasma urea nitrogen/creatinine mass ratio 13 NRG Serum or plasma creatinine measurement with calculation of estimated glomerular filtration rate 15 NRG Serum or plasma glucose measurement (mass/volume) 268 mg/dL 70-105 Serum or plasma calcium measurement (mass/volume) 8.8 mg/dL 8.5-10.1 Magnesium - 06/28/16 03:28 Magnesium 2.3 mg/dL 1.8-2.4 Methicillin resistant Staphylococcus aureus (MRSA) screening culture - 06:54 Methicillin resistant Staphylococcus aureus (MRSA) screening culture NEG NRG Capillary blood glucose measurement by glucometer (mass/volume) - 06/28/16 06: 56 Capillary blood glucose measurement by glucometer (mass/volume) 301 mg/dL 70-110 Capillary blood glucose measurement by glucometer (mass/volume) - 06/28/16 13: 05 Capillary blood glucose measurement by glucometer (mass/volume) 223 mg/dL 70-110 Capillary blood glucose measurement by glucometer (mass/volume) - 06/28/16 20: 15 Capillary blood glucose measurement by glucometer (mass/volume) 112 mg/dL 70-110 Capillary blood glucose measurement by glucometer (mass/volume) - 06/29/16 00: 44 Capillary blood glucose measurement by glucometer (mass/volume) 125 mg/dL 70-110 Complete blood count (CBC) with automated white blood cell (WBC) differential - 06/29/16 03:40 Blood leukocytes automated count (number/volume) 10.8 10*3/ uL 4.3-11.0 Blood erythrocytes automated count (number/volume) 3.30 10*6 /uL 4.35-5.85 Venous blood hemoglobin measurement (mass/volume) 8.8 g/dL 11.5-16.0 Blood hematocrit (volume fraction) 27 % 35-52 Automated erythrocyte mean corpuscular volume 83 [foz_us] 80-99 Automated erythrocyte mean corpuscular hemoglobin (mass per erythrocyte) 27 pg 25-34 Automated erythrocyte mean corpuscular hemoglobin concentration measurement ( mass/volume) 32 g/dL 32-36 Automated erythrocyte distribution width ratio 14.5 % 10.0-14.5 Automated blood platelet count (count/volume) 357 10*3/uL 130-400 Automated blood platelet mean volume measurement 9.8 [foz_us ] 7.4-10.4 Automated blood neutrophils/100 leukocytes 74 % 42-75 Automated blood lymphocytes/100 leukocytes 17 % 12-44 Blood monocytes/100 leukocytes 8 % 0-12 Automated blood eosinophils/100 leukocytes 1 % 0-10 Automated blood basophils/100 leukocytes 0 % 0-10 Blood neutrophils automated count (number/volume) 8.0 10*3 1.8-7.8 Blood lymphocytes automated count (number/volume) 1.8 10*3 1.0-4.0 Blood monocytes automated count (number/volume) 0.8 10*3 0.0-1.0 Automated eosinophil count 0.1 10*3/uL 0.0-0.3 Automated blood basophil count (count/volume) 0.0 10*3/uL 0.0-0.1 Whole blood basic metabolic panel - 06/29/16 03:40 Serum or plasma sodium measurement (moles/volume) 141 mmol/ L 135-145 Serum or plasma potassium measurement (moles/volume) 3.2 mmol/L 3.6-5.0 Serum or plasma chloride measurement (moles/volume) 105 mmol /L 98-107 Carbon dioxide 26 mmol/L 21-32 Serum or plasma anion gap determination (moles/volume) 10 mmol/L 5-14 Serum or plasma urea nitrogen measurement (mass/volume) 43 mg/dL 7-18 Serum or plasma creatinine measurement (mass/volume) 3.25 mg /dL 0.60-1.30 Serum or plasma urea nitrogen/creatinine mass ratio 13 NRG Serum or plasma creatinine measurement with calculation of estimated glomerular filtration rate 14 NRG Serum or plasma glucose measurement (mass/volume) 145 mg/dL 70-105 Serum or plasma calcium measurement (mass/volume) 8.3 mg/dL 8.5-10.1 Serum or plasma phosphate measurement (mass/volume) - 06/29/16 03:40 Serum or plasma phosphate measurement (mass/volume) 4.5 mg/ dL 2.3-4.7 Magnesium - 06/29/16 03:40 Magnesium 2.4 mg/dL 1.8-2.4 Capillary blood glucose measurement by glucometer (mass/volume) - 06/29/16 11: 45 Capillary blood glucose measurement by glucometer (mass/volume) 82 mg/dL 70-110 Complete blood count (CBC) with automated white blood cell (WBC) differential - 07/08/16 16:53 Blood leukocytes automated count (number/volume) 12.1 10*3/ uL 4.3-11.0 Blood erythrocytes automated count (number/volume) 3.13 10*6 /uL 4.35-5.85 Venous blood hemoglobin measurement (mass/volume) 8.3 g/dL 11.5-16.0 Blood hematocrit (volume fraction) 25 % 35-52 Automated erythrocyte mean corpuscular volume 81 [foz_us] 80-99 Automated erythrocyte mean corpuscular hemoglobin (mass per erythrocyte) 27 pg 25-34 Automated erythrocyte mean corpuscular hemoglobin concentration measurement ( mass/volume) 33 g/dL 32-36 Automated erythrocyte distribution width ratio 14.1 % 10.0-14.5 Automated blood platelet count (count/volume) 294 10*3/uL 130-400 Automated blood platelet mean volume measurement 11.0 [foz_ us] 7.4-10.4 Automated blood neutrophils/100 leukocytes 63 % 42-75 Automated blood lymphocytes/100 leukocytes 25 % 12-44 Blood monocytes/100 leukocytes 8 % 0-12 Automated blood eosinophils/100 leukocytes 3 % 0-10 Automated blood basophils/100 leukocytes 1 % 0-10 Blood neutrophils automated count (number/volume) 7.6 10*3 1.8-7.8 Blood lymphocytes automated count (number/volume) 3.0 10*3 1.0-4.0 Blood monocytes automated count (number/volume) 1.0 10*3 0.0-1.0 Automated eosinophil count 0.4 10*3/uL 0.0-0.3 Automated blood basophil count (count/volume) 0.1 10*3/uL 0.0-0.1 PT panel in platelet poor plasma by coagulation assay - 07/08/16 16:53 Prothrombin time (PT) in platelet poor plasma by coagulation assay 12.9 s 12.2-14.7 INR in platelet poor plasma or blood by coagulation assay 1.0 0.8-1.4 Activated partial thromboplastin time (aPTT) in platelet poor plasma bycoagulation assay - 07/08/16 16:53 Activated partial thromboplastin time (aPTT) in platelet poor plasma bycoagulation assay 42 s 24-35 Comprehensive metabolic panel - 07/08/16 16:53 Serum or plasma sodium measurement (moles/volume) 135 mmol/ L 135-145 Serum or plasma potassium measurement (moles/volume) 4.3 mmol/L 3.6-5.0 Serum or plasma chloride measurement (moles/volume) 104 mmol /L 98-107 Carbon dioxide 19 mmol/L 21-32 Serum or plasma anion gap determination (moles/volume) 12 mmol/L 5-14 Serum or plasma urea nitrogen measurement (mass/volume) 35 mg/dL 7-18 Serum or plasma creatinine measurement (mass/volume) 2.87 mg /dL 0.60-1.30 Serum or plasma urea nitrogen/creatinine mass ratio 12 NRG Serum or plasma creatinine measurement with calculation of estimated glomerular filtration rate 16 NRG Serum or plasma glucose measurement (mass/volume) 274 mg/dL 70-105 Serum or plasma calcium measurement (mass/volume) 8.2 mg/dL 8.5-10.1 Serum or plasma total bilirubin measurement (mass/volume) 0.1 mg/dL 0.1-1.0 Serum or plasma alkaline phosphatase measurement (enzymatic activity/volume) 70 U/L 40-136 Serum or plasma aspartate aminotransferase measurement (enzymatic activity/ volume) 10 U/L 5-34 Serum or plasma alanine aminotransferase measurement (enzymatic activity/volume ) 17 U/L 0-55 Serum or plasma protein measurement (mass/volume) 5.7 g/dL 6.4-8.2 Serum or plasma albumin measurement (mass/volume) 2.9 g/dL 3.2-4.5 Magnesium - 07/08/16 16:53 Magnesium 1.6 mg/dL 1.8-2.4 Serum or plasma troponin i.cardiac measurement (mass/volume) - 07/08/16 16:53 Serum or plasma troponin i.cardiac measurement (mass/volume) < ng/mL <0.30 Myoglobin, serum - 07/08/16 16:53 Myoglobin, serum 257.5 ng/mL 10.0-92.0 Serum or plasma troponin i.cardiac measurement (mass/volume) - 07/08/16 18:04 Serum or plasma troponin i.cardiac measurement (mass/volume) < ng/mL <0.30 Encounters ACCT No. Visit Date/Time Discharge Status Pt. Type Provider Facility Loc./Unit Complaint [id number] 10/13/2014 07:50:00 10/13/2014 23: 59:59 C[facility] Outpatient RAUDEL STAPLES APRN [id number] 06/30/2014 08:12:00 06/30/2014 23: 59:59 [facility] Outpatient MICHAEL RODRIGUEZ DO [id number] 06/11/2014 11:30:00 06/11/2014 23: 59:59 CLS Outpatient LUZ TRINIDAD APRN [id number] 06/11/2014 11:30:00 06/11/2014 23: 59:59 CLS Outpatient LUZ TRINIDAD APRN [id number] 06/02/2014 08:48:00 06/02/2014 23: 59:59 CLS Outpatient RAUDEL STAPLES APRN [id number] 05/13/2014 13:20:00 05/13/2014 23: 59:59 CLS Outpatient LUZ TRINIDAD APRN [id number] 04/28/2014 07:50:00 04/28/2014 23: 59:59 CLS Outpatient RAUDEL STAPLES APRN [id number] 03/17/2014 11:57:00 03/17/2014 23: 59:59 CLS Outpatient MICHAEL RODRIGUEZ DO [id number] 03/03/2014 07:33:00 03/03/2014 23: 59:59 CLS Outpatient RAUDEL STAPLES APRN [id number] 01/13/2014 07:53:00 01/13/2014 23: 59:59 CLS Outpatient RAUDEL STAPLES APRN [id number] 12/16/2013 07:56:00 12/16/2013 23: 59:59 CLS Outpatient ERICA THAO MD [id number] 11/24/2013 09:56:00 11/24/2013 23: 59:59 CLS Outpatient ZEKE ALMODOVAR ROSA ELENA Artemio [id number] 11/03/2013 15:29:00 11/03/2013 23: 59:59 CLS Outpatient ERICA THAO MD [id number] 10/14/2013 08:06:00 10/14/2013 23: 59:59 CLS Outpatient RAUDEL STAPLES APRN [id number] 10/02/2013 00:00:00 10/02/2013 23: 59:59 CLS Outpatient MICHAEL RODRIGUEZ DO [id number] 09/30/2013 09:39:00 09/30/2013 23: 59:59 CLS Outpatient ERICA THAO MD [id number] 09/16/2013 07:53:00 09/16/2013 23: 59:59 CLS Outpatient RAUDEL STAPLES APRN [id number] 08/21/2013 11:30:00 08/21/2013 23: 59:59 CLS Outpatient ERICA THAO MD [id number] 08/21/2013 11:28:00 08/21/2013 23: 59:59 CLS Outpatient ERICA THAO MD [id number] 08/04/2013 11:03:00 08/04/2013 23: 59:59 CLS Outpatient ERICA THAO MD [id number] 06/22/2013 15:11:00 06/22/2013 23: 59:59 CLS Outpatient ERICA THAO MD [id number] 06/02/2013 08:04:00 06/02/2013 23: 59:59 CLS Outpatient MICHAEL RODRIGUEZ DO [id number] 06/01/2013 08:37:00 06/01/2013 23: 59:59 CLS Outpatient ERICA THAO MD [id number] 04/22/2013 09:54:00 04/22/2013 23: 59:59 CLS Outpatient ERICA THAO MD [id number] 10/31/2012 08:15:00 10/31/2012 23: 59:59 CLS Outpatient ERICA THAO MD [id number] 08/25/2012 08:21:00 08/25/2012 23: 59:59 CLS Outpatient ERICA THAO MD [id number] 08/07/2012 08:47:00 08/07/2012 23: 59:59 CLS Outpatient ERICA THAO MD [id number] 05/14/2012 10:18:00 05/14/2012 23: 59:59 [place] [id number] 05/14/2012 10:18:00 05/14/2012 23: 59:59 CLS Outpatient MICHAEL RODRIGUEZ DO
--- OUTSIDE RECORDS SUMMARY | 2017-02-05 11:21 | XMS REPORT | Continuity of Care Document ---
Author Author [facility] [place] Address Unknown Phone Unavailable Allergies Active Description Code Type Severity Reaction Onset Reported/Identified Relationship to Patient Clinical Status Yes No Known Drug Allergies [id number] Drug Allergy Unknown N/ A 03/22/2013 Medications [...] RODRIGUEZ DOA K 401.9 ESSENTIAL HYPERTENSION 03/25/2009 ERICA THAO MD 250.00 Diabetes Mellitus 03/25/2009 ERICA THAO MD 401.9 ESSENTIAL HYPERTENSION 03/25/2009 MICHAEL RODRIGUEZ DO K 250.00 Diabetes Mellitus 03/25/2009 MICHAEL RODRIGUEZ DO K 401.9 ESSENTIAL HYPERTENSION 03/25/2009 ERICA THAO MD 250.00 Diabetes Mellitus 03/25/2009 ERICA THAO MD 401.9 ESSENTIAL HYPERTENSION 03/25/2009 EIRCA THAO MD 250.00 Diabetes Mellitus 03/25/2009 ERICA THAO MD 401.9 ESSENTIAL HYPERTENSION 03/25/2009 KEESHA ALMODOVAR, ERICA 250.00 Diabetes Mellitus 03/25/2009 ERICA THAO MD 401.9 ESSENTIAL HYPERTENSION 03/25/2009 RAUDEL STAPLES APRN S 250.00 Diabetes Mellitus 03/25/2009 JHOAN MANAGER TRACK, RAUDEL S 401.9 ESSENTIAL HYPERTENSION 03/25/2009 KEESHA ALMODOVAR, ERICA 250.00 Diabetes Mellitus 03/25/2009 KEESHA ALMODOVAR, ERICA 401.9 ESSENTIAL HYPERTENSION 03/25/2009 KEESHA ALMODOVAR, ERICA 250.00 Diabetes Mellitus 03/25/2009 KEESHA ALMODOVAR, ERICA 401.9 ESSENTIAL HYPERTENSION 03/25/2009 JHOAN MANAGER TRACK, RAUDEL S 250.00 Diabetes Mellitus 03/25/2009 JHOAN MANAGER TRACK, RAUDEL S 401.9 ESSENTIAL HYPERTENSION 03/25/2009 RODRIGUEZ [...] MD 401.9 ESSENTIAL HYPERTENSION 03/25/2009 JHOAN MANAGER TRACK, RAUDEL S 250.00 Diabetes Mellitus 03/25/2009 JHOAN MANAGER TRACK, RAUDEL S 401.9 ESSENTIAL HYPERTENSION 03/25/2009 JHOAN GILMOREN, RAUDEL S 250.00 Diabetes Mellitus 03/25/2009 JHOAN MANAGER TRACK, RAUDEL S 401.9 ESSENTIAL HYPERTENSION 03/25/2009 RODRIGUEZ DO, MICHAEL K 250.00 Diabetes Mellitus 03/25/2009 RODRIGUEZ DO, MICHAEL K 401.9 ESSENTIAL HYPERTENSION 03/25/2009 JHOAN MANAGER TRACK, RAUDEL S 250.00 Diabetes Mellitus 03/25/2009 JHOAN MANAGER TRACK, RAUDEL S 401.9 ESSENTIAL HYPERTENSION 03/25/2009 ERICA THAO MD 250.00 Diabetes Mellitus 03/25/2009 ERICA THAO MD 401.9 ESSENTIAL HYPERTENSION 03/25/2009 JHOAN GILMOREN, RAUDEL S 250.00 Diabetes Mellitus 03/25/2009 JHOAN MANAGER TRACK, RAUDEL S 401.9 ESSENTIAL HYPERTENSION 03/25/2009 VIVI MANAGER TRACK, LUZ 250.00 Diabetes Mellitus 03/25/2009 VIVI MANAGER TRACK, LUZ 401.9 ESSENTIAL HYPERTENSION 03/25/2009 VIVI MANAGER TRACK, LUZ 250.00 Diabetes Mellitus 03/25/2009 VIVI MANAGER TRACK, LUZ 401.9 ESSENTIAL HYPERTENSION 03/25/2009 RODRIGUEZ DO, MICHAEL K 250.00 Diabetes Mellitus 03/25/2009 RODRIGUEZ DO, MICHAEL K 401.9 ESSENTIAL HYPERTENSION 03/25/2009 VIVI MANAGER TRACK, LUZ 250.00 Diabetes Mellitus 03/25/2009 VIVI MANAGER TRACK, LUZ 401.9 ESSENTIAL HYPERTENSION 03/25/2009 JHOAN MANAGER TRACK, RAUDEL S 250.00 Diabetes Mellitus 03/25/2009 JHOAN MANAGER TRACK, RAUDEL S 401.9 ESSENTIAL HYPERTENSION 05/16/2009 RODRIGUEZ DO, MICHAEL K 599.0 Urinary Tract Infection 05/16/2009 ERICA THAO MD 599.0 Urinary Tract Infection 05/16/2009 ERICA TAHO MD 599.0 Urinary Tract Infection 05/16/2009 ERICA [...] 599.0 Urinary Tract Infection 05/16/2009 JHOAN MANAGER TRACK, RAUDEL S 599.0 Urinary Tract Infection 05/16/2009 RODRIGUEZ DO, MICHAEL K 599.0 Urinary Tract Infection 05/16/2009 JHOAN MANAGER TRACK, RAUDEL S 599.0 Urinary Tract Infection 05/16/2009 ERICA THAO MD 599.0 Urinary Tract Infection 05/16/2009 JHOAN MANAGER TRACK, RAUDEL S 599.0 Urinary Tract Infection 05/16/2009 VIVI MANAGER TRACK, LUZ 599.0 Urinary Tract Infection 05/16/2009 VIVI MANAGER TRACK, LUZ 599.0 Urinary Tract Infection 05/16/2009 RODRIGUEZ DO, MICHAEL K 599.0 Urinary Tract Infection 05/16/2009 VIVI MANAGER TRACK, LUZ 599.0 Urinary Tract Infection 05/16/2009 JHOANMARAI M PACE, RAUDEL S 599.0 Urinary Tract [...] Pyelonephritis Acute Bacterial Bilateral 06/03/2009 JHOAN MANAGER TRACK, RAUDEL S 590.10 Pyelonephritis Acute Bacterial Bilateral 06/03/2009 JHOAN MANAGER TRACK, RAUDEL S 590.10 Pyelonephritis Acute Bacterial Bilateral 06/03/2009 MICHAEL MCKENNA MICHAEL K 590.10 Pyelonephritis Acute Bacterial Bilateral 06/03/2009 JHOAN MANAGER TRACK, RAUDEL S 590.10 Pyelonephritis Acute Bacterial Bilateral 06/03/2009 ERICA THAO MD 590.10 Pyelonephritis Acute Bacterial Bilateral 06/03/2009 JHOAN MANAGER TRACK, RAUDEL S 590.10 Pyelonephritis Acute Bacterial Bilateral 06/03/2009 VIVI MANAGER TRACK, LUZ 590.10 Pyelonephritis Acute Bacterial Bilateral 06/03/2009 VIVI MANAGER TRACK, LUZ 590.10 Pyelonephritis Acute Bacterial Bilateral 06/03/2009 MICHAEL MCKENNA, MICHAEL K 590.10 Pyelonephritis Acute Bacterial Bilateral 06/03/2009 VIVI MANAGER TRACK, LUZ 590.10 Pyelonephritis Acute Bacterial Bilateral 06/03/2009 JHOAN MANAGER TRACK, RAUDEL S 590.10 Pyelonephritis Acute Bacterial Bilateral [...] Pain During Urination (dysuria) 06/17/2009 VIVI MANAGER TRACK, LUZ 788.1 Pain During Urination (dysuria) 06/17/2009 VIVI MANAGER TRACK LUZ 788.1 Pain During Urination (dysuria) 06/17/2009 MICHAEL MCKENNA MICHAEL K 788.1 Pain During Urination (dysuria) 06/17/2009 VIVI MANAGER TRACK, LUZ 788.1 Pain During Urination (dysuria) 06/17/2009 [...] The Trunk - Groin 08/08/2009 VIVI MANAGER TRACK, LUZ 682.2 Skin Abscess Of The Trunk - Groin 08/08/2009 VIVI MANAGER TRACK, LUZ 682.2 Skin Abscess Of The Trunk - Groin 08/08/2009 MICHAEL RODRIGUEZ DO K 682.2 Skin Abscess Of The Trunk - Groin 08/08/2009 VIVI MANAGER TRACK, LUZ 682.2 Skin Abscess Of The Trunk [...] Abscess Of Unspecified Sites 08/10/2009 JHOAN MANAGER TRACKESMER UlloaA S 682.9 Cellulitis And Abscess Of Unspecified Sites 08/10/2009 MICHAEL RODRIGUEZ DO 682.9 Cellulitis And Abscess Of Unspecified Sites 08/10/2009 ERICA THAO MD 682.9 Cellulitis And Abscess Of Unspecified Sites 08/10/2009 ROSA ELENA ALANIS MD 682.9 Cellulitis And Abscess Of Unspecified Sites 08/10/2009 ERICA THAO MD 682.9 Cellulitis And Abscess Of Unspecified Sites 08/10/2009 JHOAN MANAGER TRACKESMERA S 682.9 Cellulitis And Abscess Of Unspecified Sites 08/10/2009 JHOAN MANAGER TRACKISELA UlloaNDA S 682.9 Cellulitis And Abscess Of Unspecified Sites 08/10/2009 MICHAEL RODRIGUEZ DO 682.9 Cellulitis And Abscess Of Unspecified Sites 08/10/2009 ESMER STAPLES APRNA S 682.9 Cellulitis And Abscess Of Unspecified Sites 08/10/2009 ERICA THAO MD 682.9 Cellulitis And Abscess Of Unspecified Sites 08/10/2009 JHOAN MANAGER TRACKESEMR UlloaA S 682.9 Cellulitis And Abscess Of [...] Myalgia And Myositis, Unspecified 03/29/2010 JHOAN MANAGER TRACK, RAUDEL S 729.1 Myalgia And Myositis, Unspecified 03/29/2010 JHOAN MANAGER TRACK, RAUDEL S 729.1 Myalgia And Myositis, Unspecified 03/29/2010 MICHAEL RODRIGUEZ DO 729.1 Myalgia And Myositis, Unspecified 03/29/2010 JHOAN MANAGER TRACK, RAUDEL S 729.1 Myalgia And Myositis, Unspecified 03/29/2010 ERICA THAO MD 729.1 Myalgia And Myositis, Unspecified 03/29/2010 JHOAN MANAGER TRACK, RAUDEL S 729.1 Myalgia And Myositis, Unspecified 03/29/2010 VIVI MANAGER TRACK, LUZ 729.1 Myalgia And Myositis, Unspecified 03/29/2010 VIVI MANAGER TRACK, LUZ 729.1 Myalgia And Myositis, Unspecified 03/29/2010 MICHAEL RODRIGUEZ DO 729.1 Myalgia And Myositis, Unspecified 03/29/2010 VIVI MANAGER TRACK, LUZ 729.1 Myalgia And Myositis, Unspecified 03/29/2010 JHOAN MANAGER TRACK, RAUDEL S 729.1 Myalgia And Myositis, Unspecified [...] 443.9 PERIPHERAL VASCULAR DISEASE, UNSPECIFIED 04/12/2010 ERICA TAHO MD 443.9 PERIPHERAL VASCULAR DISEASE, UNSPECIFIED 04/12/2010 [...] PERIPHERAL VASCULAR DISEASE, UNSPECIFIED 04/12/2010 VIVI MANAGER TRACK, LUZ 443.9 PERIPHERAL VASCULAR DISEASE, UNSPECIFIED 04/12/2010 VIVI MANAGER TRACK, LUZ 443.9 PERIPHERAL VASCULAR DISEASE, UNSPECIFIED 04/12/2010 MICHAEL RODRIGUEZ DO K 443.9 PERIPHERAL VASCULAR DISEASE, UNSPECIFIED 04/12/2010 VIVI MANAGER TRACK, LUZ 443.9 PERIPHERAL VASCULAR DISEASE, UNSPECIFIED 04/12/2010 [...] MICHAEL K 272.4 HYPERLIPIDEMIA 05/15/2010 RODRIGUEZ DO, MICAHEL K V58.69 Taking High-risk Medication 05/15/2010 ERICA [...] V58.69 Taking High-risk Medication 05/15/2010 JHOAN MANAGER TRACK, RAUDEL S 272.4 HYPERLIPIDEMIA 05/15/2010 JHOAN PACE RAUDEL S V58.69 Taking High-risk Medication 05/15/2010 JHOAN MANAGER TRACK, RAUDEL S 272.4 HYPERLIPIDEMIA 05/15/2010 JHOAN MANAGER TRACK, RAUDEL S V58.69 Taking High-risk Medication 05/15/2010 RODRIGUEZ DO, MICHAEL K 272.4 HYPERLIPIDEMIA 05/15/2010 RODRIGUEZ DO, MICHAEL K V58.69 Taking High-risk Medication 05/15/2010 JHOAN MANAGER TRACK, RAUDEL S 272.4 HYPERLIPIDEMIA 05/15/2010 JHOAN PACE RAUDEL S V58.69 Taking High-risk Medication 05/15/2010 ERICA THAO MD 272.4 HYPERLIPIDEMIA 05/15/2010 ERICA THAO MD V58.69 Taking High-risk Medication 05/15/2010 JHOAN PACE RAUDEL S 272.4 HYPERLIPIDEMIA 05/15/2010 JHOANMARIA M PACE RAUDEL S V58.69 Taking High-risk Medication 05/15/2010 VIVI MANAGER TRACK, LUZ 272.4 HYPERLIPIDEMIA 05/15/2010 VIVI MANAGER TRACK, LUZ V58.69 Taking High-risk Medication 05/15/2010 VIVI MANAGER TRACK, LUZ 272.4 HYPERLIPIDEMIA 05/15/2010 VIVI MANAGER TRACK, LUZ V58.69 Taking High-risk Medication 05/15/2010 RODRIGUEZ DO, MICHAEL K 272.4 HYPERLIPIDEMIA 05/15/2010 RODRIGUEZ DO, MICHAEL K V58.69 Taking High-risk Medication 05/15/2010 VIVI MANAGER TRACK, LUZ 272.4 HYPERLIPIDEMIA 05/15/2010 VIVI MANAGER TRACK, LUZ V58.69 Taking High-risk Medication 05/15/2010 JHOAN MANAGER TRACK, RAUDEL S 272.4 HYPERLIPIDEMIA 05/15/2010 JHOAN MANAGER TRACK, RAUDEL S V58.69 Taking High-risk Medication 08/02/2010 [...] THAO MD 401.1 ESSENTIAL HYPERTENSION BENIGN 08/02/2010 REICA THAO MD 401.1 ESSENTIAL HYPERTENSION BENIGN 08/02/2010 [...] 401.1 ESSENTIAL HYPERTENSION BENIGN 08/02/2010 VIVI MANAGER TRACK, LUZ 401.1 ESSENTIAL HYPERTENSION BENIGN 08/02/2010 VIVI MANAGER TRACK, LUZ 401.1 ESSENTIAL HYPERTENSION BENIGN 08/02/2010 RODRIGUEZ DO, MICHAEL K 401.1 ESSENTIAL HYPERTENSION BENIGN 08/02/2010 VIVI MANAGER TRACK, LUZ 401.1 ESSENTIAL HYPERTENSION BENIGN 08/02/2010 RAUDEL STAPLES APRN 401.1 ESSENTIAL HYPERTENSION BENIGN 03/13/2011 Ot 250.00 DIAB SASHA WO COMPL, TYPE II OR UNSPEC TY 03/13/2011 Ot 401.9 HYPERTENSION NOS 03/13/2011 Ot 414.01 CORONARY ATHEROSCLEROSIS OF [place] CORON 03/13/2011 Ot 786.50 CHEST PAIN NOS [...] 05/01/2011 ERICA THAO MD.8 Folliculitis 05/01/2011 ERICA TAHO MD V04.81 Flu Dx (3 Yrs And [...] Ii Uncontrolled (uncomplicated ) 05/01/2011 JHOAN MANAGER TRACK, RAUDEL S 704.8 Folliculitis 05/01/2011 JHOAN MANAGER TRACK, RAUDEL S V04.81 Flu Dx (3 Yrs [...] Ii Uncontrolled (uncomplicated ) 05/01/2011 JHOAN MANAGER TRACK, RAUDEL S 704.8 Folliculitis 05/01/2011 JHOAN MANAGER TRACK, RAUDEL S V04.81 Flu Dx (3 Yrs And Above, Im) 05/01/2011 MICHAEL DO MICHAEL K 250.02 Diabetes Ii Uncontrolled (uncomplicated) 05/01/2011 RODRIGUEZ DOCARISSAA K 704.8 Folliculitis 05/01/2011 CARISSA RODRIGUEZ DOA K V04.81 Flu Dx (3 Yrs And Above, Im) 05/01/2011 ESMER STAPLES APRNA S 250.02 Diabetes Ii Uncontrolled (uncomplicated ) 05/01/2011 JHOAN MANAGER TRACK, RAUDEL S 704.8 Folliculitis 05/01/2011 ISELA STAPLES [...] PACE LUZ 704.8 Folliculitis 05/01/2011 VIVI MANAGER TRACK, LUZ V04.81 Flu Dx (3 Yrs And [...] Yrs And Above, Im) 05/01/2011 JHOAN MANAGER TRACK, RAUDEL S 250.02 Diabetes Ii Uncontrolled (uncomplicated ) 05/01/2011 JHOAN MANAGER TRACK, RAUDEL S 704.8 Folliculitis 05/01/2011 JHOAN MANAGER TRACK, RAUDEL S V04.81 Flu Dx (3 Yrs [...] MD 466.0 Bronchitis, Acute 08/14/2011 JHOAN MANAGER TRACK, RAUDEL S 466.0 Bronchitis, Acute 08/14/2011 VIVI MANAGER TRACK, LUZ 466.0 Bronchitis, Acute 08/14/2011 VIVI MANAGER TRACK, LUZ 466.0 Bronchitis, Acute 08/14/2011 MICHAEL RODRIGUEZ DO K 466.0 Bronchitis, Acute 08/14/2011 VIVI MANAGER TRACK, LUZ 466.0 Bronchitis, Acute 08/14/2011 JHOAN MANAGER TRACK, RAUDEL S 466.0 Bronchitis, Acute 08/22/2011 MICHAEL [...] DIABETES WITH RENAL MANIFESTATIONS 08/22/2011 JHOAN MANAGER TRACK, RAUDEL S 250.40 DIABETES WITH RENAL MANIFESTATIONS 08/22/2011 JHOAN MANAGER TRACK, RAUDEL S 250.40 DIABETES WITH RENAL MANIFESTATIONS [...] THAO MD 356.9 NEUROPATHY 11/23/2011 ERICA THAO MD.8 Onychocryptosis 11/23/2011 [...] RAUDEL S 356.9 NEUROPATHY 11/23/2011 JHOAN MANAGER TRACK, RAUDEL S 703.8 Onychocryptosis 11/23/2011 JHOAN GILMOREN, [...] S 736.72 Equinus Deformity 11/23/2011 VIVI MANAGER TRACK, LUZ 110.1 Onychomycosis 11/23/2011 VIVI MANAGER TRACK, LUZ 356.9 NEUROPATHY 11/23/2011 VIVI MANAGER TRACK, LUZ 703.8 Onychocryptosis 11/23/2011 VIVI MANAGER TRACK, LUZ 736.72 Equinus Deformity 11/23/2011 VIVI MANAGER TRACK, LUZ 110.1 Onychomycosis 11/23/2011 VIVI MANAGER TRACK, LUZ 356.9 NEUROPATHY 11/23/2011 VIVI MANAGER TRACK, LUZ 703.8 Onychocryptosis 11/23/2011 VIVI MANAGER TRACK, LUZ 736.72 Equinus Deformity 11/23/2011 RODRIGUEZ DO, MICHAEL K 110.1 Onychomycosis 11/23/2011 RODRIGUEZ DO, MICHAEL K 356.9 NEUROPATHY 11/23/2011 RODRIGUEZ DO, MICHAEL K 703.8 Onychocryptosis 11/23/2011 RODRIGUEZ DO, MICHAEL K 736.72 Equinus Deformity 11/23/2011 VIVI MANAGER TRACK, LUZ 110.1 Onychomycosis 11/23/2011 VIVI MANAGER TRACK, LUZ 356.9 NEUROPATHY 11/23/2011 VIVI MANAGER TRACK, LUZ 703.8 Onychocryptosis 11/23/2011 VIVI MANAGER TRACK, LUZ 736.72 Equinus Deformity 11/23/2011 ESMER STAPLES [...] NOS 12/06/2011 Ot 414.01 CORONARY ATHEROSCLEROSIS OF [place] CORON 12/06/2011 Ot 786.59 CHEST PAIN NEC [...] 703.0 Ingrown Toenail (infection) 12/07/2011 VIVI MANAGER TRACK, LUZ 703.0 Ingrown Toenail (infection) 12/07/2011 VIVI MANAGER TRACK, LUZ 703.0 Ingrown Toenail (infection) 12/07/2011 MICHAEL RODRIGUEZ DO K 703.0 Ingrown Toenail (infection) 12/07/2011 VIVI MANAGER TRACK, LUZ 703.0 Ingrown Toenail (infection) 12/07/2011 RAUDEL [...] CHRONIC KIDNEY DISEASE STAGE III (MODERATE) 03/18/2012 MICHALE RODRIGUEZ DO V03.82 Ppv23 (pneumovax) Dx 03/18/2012 [...] Ppv23 (pneumovax) Dx 03/18/2012 RAUDEL STAPLES APRN 58aRul.3 CHRONIC KIDNEY DISEASE STAGE III ( MODERATE) [...] V03.82 Ppv23 (pneumovax) Dx 03/18/2012 VIVI MANAGER TRACKLUZ Ulloa 585.3 CHRONIC KIDNEY DISEASE STAGE III (MODERATE ) 03/18/2012 VIVI MANAGER TRACK, LUZ V03.82 Ppv23 (pneumovax) Dx 03/18/2012 VIVI MANAGER TRACK, LUZ 585.3 CHRONIC KIDNEY DISEASE STAGE III (MODERATE ) 03/18/2012 VIVI MANAGER TRACK, LUZ V03.82 Ppv23 (pneumovax) Dx 03/18/2012 RODRIGUEZ DO MICHAEL K 585.3 CHRONIC KIDNEY DISEASE STAGE III (MODERATE) 03/18/2012 RODRIGUEZ DO, MICHAEL K V03.82 Ppv23 (pneumovax) Dx 03/18/2012 VIVI MANAGER TRACK, LUZ 585.3 CHRONIC KIDNEY DISEASE STAGE III [...] 428.0 Heart Failure Congestive 04/09/2012 JHOAN MANAGER TRACK, RAUDEL S 414.00 CAD 04/09/2012 JHOAN MANAGER TRACK, RAUDEL S 428.0 Heart Failure Congestive 04/09/2012 [...] 428.0 Heart Failure Congestive 04/09/2012 JHOAN MANAGER TRACK, RAUDEL S 414.00 CAD 04/09/2012 JHOAN MANAGER TRACK, RAUDEL S 428.0 Heart Failure Congestive 04/09/2012 JHOAN MANAGER TRACK, RAUDEL S 414.00 CAD 04/09/2012 JHOAN MANAGER TRACK, RAUDEL S 428.0 Heart Failure Congestive 04/09/2012 RODRIGUEZ DO, MICHAEL K 414.00 CAD 04/09/2012 RODRIGUEZ DO, MICHAEL K 428.0 Heart Failure Congestive 04/09/2012 JHOAN MANAGER TRACK, RAUDEL S 414.00 CAD 04/09/2012 JHOAN MANAGER TRACK, RAUDEL S 428.0 Heart Failure Congestive 04/09/2012 ERICA THAO MD 414.00 CAD 04/09/2012 ERICA THAO MD 428.0 Heart Failure Congestive 04/09/2012 JHOAN MANAGER TRACK, RAUDEL S 414.00 CAD 04/09/2012 JHOAN MANAGER TRACK, RAUDEL S 428.0 Heart Failure Congestive 04/09/2012 VIVI MANAGER TRACK, LUZ 414.00 CAD 04/09/2012 VIVI MANAGER TRACK, LUZ 428.0 Heart Failure Congestive 04/09/2012 VIVI MANAGER TRACK, LUZ 414.00 CAD 04/09/2012 VIVI MANAGER TRACK, LUZ 428.0 Heart Failure Congestive 04/09/2012 RODRIGUEZ DO, MICHAEL K 414.00 CAD 04/09/2012 RODRIGUEZ DO, MICHAEL K 428.0 Heart Failure Congestive 04/09/2012 VIVI PACE, LUZ 414.00 CAD 04/09/2012 LUZ TRINIDAD APRN 428.0 Heart Failure Congestive 04/09/2012 RAUDEL STAPLES APRN S 414.00 CAD 04/09/2012 JHOAN PACE, RADUEL S 428.0 Heart Failure Congestive 04/25/2012 Ot [...] INFARCT 04/25/2012 Ot 414.01 CORONARY ATHEROSCLEROSIS OF [place] CORON 04/25/2012 Ot 429.3 CARDIOMEGALY 04/25/2012 Ot [...] ALANIS MD Ot 414.01 CORONARY ATHEROSCLEROSIS OF [place] CORON 03/28/2013 ROSA ELENA ALANIS MD Ot [...] THAO MD Ot 414.01 CORONARY ATHEROSCLEROSIS OF [place] CORON 05/12/2013 ERICA THAO MD Ot 428.0 [...] 783.21 LOSS OF WEIGHT 05/29/2013 JHOAN MANAGER TRACK, RAUDEL S 536.2 PERSISTENT VOMITING 05/29/2013 JHOAN MANAGER TRACK, RAUDEL S 783.21 LOSS OF WEIGHT 05/29/2013 JHOAN SANJEEV RAUDEL S 536.2 PERSISTENT VOMITING 05/29/2013 JHOAN MANAGER TRACK, RAUDEL S 783.21 LOSS OF WEIGHT 05/29/2013 RODRIGUEZ DO MICHAEL K 536.2 PERSISTENT VOMITING 05/29/2013 RODRIGUEZ DO, MICHAEL K 783.21 LOSS OF WEIGHT 05/29/2013 JHOAN MANAGER TRACK, RAUDEL S 536.2 PERSISTENT VOMITING 05/29/2013 JHOAN MANAGER TRACK, RAUDEL S 783.21 LOSS OF WEIGHT 05/29/2013 ERICA THAO MD 536.2 PERSISTENT VOMITING 05/29/2013 ERICA THAO MD 783.21 LOSS OF WEIGHT 05/29/2013 JHOAN PACE RAUDEL S 536.2 PERSISTENT VOMITING 05/29/2013 JHOAN PACE RAUDEL S 783.21 LOSS OF WEIGHT 05/29/2013 VIVI MANAGER TRACK, LUZ 536.2 PERSISTENT VOMITING 05/29/2013 VIVI MANAGER TRACK, LUZ 783.21 LOSS OF WEIGHT 05/29/2013 VIVI MANAGER TRACK, LUZ 536.2 PERSISTENT VOMITING 05/29/2013 VIVI MANAGER TRACK, LUZ 783.21 LOSS OF WEIGHT 05/29/2013 RODRIGUEZ DO, MICHAEL K 536.2 PERSISTENT VOMITING 05/29/2013 RODRIGUEZ DO, MICHAEL K 783.21 LOSS OF WEIGHT 05/29/2013 VIVI MANAGER TRACK, LUZ 536.2 PERSISTENT VOMITING 05/29/2013 LZU TRINIDAD APRN 783.21 LOSS OF WEIGHT 05/29/2013 [...] MANIFEST, TYPE II OR UNSPEC 07/16/2013 ERICA THAO MD Ot 272.4 HYPERLIPIDEMIA NEC/NOS 07/16/2013 ERICA THAO MD Ot 276.1 HYPOSMOLALITY 07/16/2013 ERICA THAO MD Ot 276.8 HYPOPOTASSEMIA 07/16/2013 ERICA THAO MD Ot 356.9 IDIO PERIPH NEURPTHY NOS 07/16/2013 ERICA THAO MD Ot 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, ONE EYE 07/16/2013 ERICA THAO MD Ot 403.90 HYPTNSV CHR KID DIS, UNSPEC, W CHR KD ST 07/16/2013 EIRCA THAO MD Ot 414.01 CORONARY ATHEROSCLEROSIS OF [place] CORON 07/16/2013 ERICA THAO MD Ot 428.0 [...] THAO MD Ot 414.01 CORONARY ATHEROSCLEROSIS OF [place] CORON 08/12/2013 ERICA THAO MD Ot 493.90 [...] S 290.40 VASCULAR DEMENTIA UNCOMPLICATED 09/30/2013 ISELA SATPLES APRNNDA S 244.9 UNSPECIFIED ACQUIRED HYPOTHYROIDISM 09/30/2013 JHOAN PACE RAUDEL S 290.40 VASCULAR DEMENTIA UNCOMPLICATED 09/30/2013 RODRIGUEZ DO MICHAEL K 244.9 UNSPECIFIED ACQUIRED HYPOTHYROIDISM 09/30/2013 RODRIGUEZ DO MICHAEL K 290.40 VASCULAR DEMENTIA UNCOMPLICATED 09/30/2013 JHOAN MANAGER TRACK, RAUDEL S 244.9 UNSPECIFIED ACQUIRED HYPOTHYROIDISM 09/30/2013 JHOAN PACE, RAUDEL S 290.40 VASCULAR DEMENTIA UNCOMPLICATED 09/30/2013 ERICA THAO MD 244.9 UNSPECIFIED ACQUIRED HYPOTHYROIDISM 09/30/2013 ERICA THAO MD 290.40 VASCULAR DEMENTIA UNCOMPLICATED 09/30/2013 ISELA STAPLES APRNNDA S 244.9 UNSPECIFIED ACQUIRED HYPOTHYROIDISM 09/30/2013 ISELA STAPLES APRNNDA S 290.40 VASCULAR DEMENTIA UNCOMPLICATED 09/30/2013 VIVI MANAGER TRACK, LUZ 244.9 UNSPECIFIED ACQUIRED HYPOTHYROIDISM 09/30/2013 VIVI MANAGER TRACK, LUZ 290.40 VASCULAR DEMENTIA UNCOMPLICATED 09/30/2013 VIVI MANAGER TRACK, LUZ 244.9 UNSPECIFIED ACQUIRED HYPOTHYROIDISM 09/30/2013 VIVI MANAGER TRACK, LUZ 290.40 VASCULAR DEMENTIA UNCOMPLICATED 09/30/2013 RODRIGUEZ DO, MICHAEL K 244.9 UNSPECIFIED ACQUIRED HYPOTHYROIDISM 09/30/2013 RODRIGUEZ DO, MICHAEL K 290.40 VASCULAR DEMENTIA UNCOMPLICATED 09/30/2013 VIVI MANAGER TRACK, LUZ 244.9 UNSPECIFIED ACQUIRED HYPOTHYROIDISM 09/30/2013 VIVI MANAGER TRACK, LUZ 290.40 VASCULAR DEMENTIA UNCOMPLICATED 09/30/2013 JHOAN MANAGER TRACK, RAUDEL S 244.9 UNSPECIFIED ACQUIRED HYPOTHYROIDISM 09/30/2013 [...] 787.01 NAUSEA WITH VOMITING 10/14/2013 VIVI MANAGER TRACK, LUZ 401.0 HYPERTENSION MALIGNANT ESSENTIAL 10/14/2013 VIVI MANAGER TRACK, LUZ 787.01 NAUSEA WITH VOMITING 10/14/2013 VIVI MANAGER TRACK, LUZ 401.0 HYPERTENSION MALIGNANT ESSENTIAL 10/14/2013 VIVI MANAGER TRACK, LUZ 787.01 NAUSEA WITH VOMITING 10/14/2013 RODRIGUEZ DO, MICHAEL K 401.0 HYPERTENSION MALIGNANT ESSENTIAL 10/14/2013 RODRIGUEZ DO, MICHAEL K 787.01 NAUSEA WITH VOMITING 10/14/2013 VIVI MANAGER TRACK, LUZ 401.0 HYPERTENSION MALIGNANT ESSENTIAL 10/14/2013 VIVI MANAGER TRACK, LUZ 787.01 NAUSEA WITH VOMITING 10/14/2013 JHOAN PACE RAUDEL S 401.0 HYPERTENSION MALIGNANT ESSENTIAL 10/14/2013 JHOAN MANAGER TRACK, RAUDEL S 787.01 NAUSEA WITH VOMITING 10/16/2013 [...] MD 790.99 abnormal lab 10/16/2013 JHOAN MANAGER TRACK, RAUDEL S 789.04 ABDOMINAL PAIN LEFT LOWER QUADRANT 10/16/2013 JHOAN MANAGER TRACK, RAUDEL S 790.99 abnormal lab 10/16/2013 JHOAN MANAGER TRACK, RAUDEL S 789.04 ABDOMINAL PAIN LEFT LOWER QUADRANT 10/16/2013 JHOAN MANAGER TRACK, RAUDEL S 790.99 abnormal lab 10/16/2013 RODRIGUEZ DO, MICHAEL K 789.04 ABDOMINAL PAIN LEFT LOWER QUADRANT 10/16/2013 RODRIGUEZ DO, MICHAEL K 790.99 ABNORMAL LAB 10/16/2013 JHOAN MANAGER TRACK, RAUDEL S 789.04 ABDOMINAL PAIN LEFT LOWER QUADRANT 10/16/2013 JHOAN MANAGER TRACK, RAUDEL S 790.99 ABNORMAL LAB 10/16/2013 ERICA THAO MD 789.04 ABDOMINAL PAIN LEFT LOWER QUADRANT 10/16/2013 ERICA THAO MD 790.99 ABNORMAL LAB 10/16/2013 JHOAN MANAGER TRACK, RAUDEL S 789.04 ABDOMINAL PAIN LEFT LOWER QUADRANT 10/16/2013 JHOAN MANAGER TRACK, RAUDEL S 790.99 ABNORMAL LAB 10/16/2013 VIVI MANAGER TRACK, LUZ 789.04 ABDOMINAL PAIN LEFT LOWER QUADRANT 10/16/2013 VIVI MANAGER TRACK, LUZ 790.99 ABNORMAL LAB 10/16/2013 VIVI MANAGER TRACK, LUZ 789.04 ABDOMINAL PAIN LEFT LOWER QUADRANT 10/16/2013 VIVI MANAGER TRACK, LUZ 790.99 ABNORMAL LAB 10/16/2013 RODRIGUEZ DO, MICHAEL K 789.04 ABDOMINAL PAIN LEFT LOWER QUADRANT 10/16/2013 RODRIGUEZ MICHAEL MCKENNA K 790.99 ABNORMAL LAB 10/16/2013 VIVI MANAGER TRACK, LUZ 789.04 ABDOMINAL PAIN LEFT LOWER QUADRANT 10/16/2013 VIVI MANAGER TRACK, LUZ 790.99 ABNORMAL LAB 10/16/2013 JHOAN MANAGER TRACK, RAUDEL S 789.04 ABDOMINAL PAIN LEFT LOWER QUADRANT 10/16/2013 JHOAN MANAGER TRACK, RAUDEL S 790.99 ABNORMAL LAB 10/20/2013 KEESHA [...] ERICA Molina Ot 414.01 CORONARY ATHEROSCLEROSIS OF [place] CORON 10/20/2013 KEESHA ALMODOVAR, ERICA Molina Ot [...] ALANIS MD Ot 414.01 CORONARY ATHEROSCLEROSIS OF [place] CORON 10/26/2013 ROSA ELENA ALANIS MD Ot [...] Ot 715.90 OSTEOARTHROS NOS-UNSPEC 10/26/2013 ROSA ELENA ALANIS MD Ot V10.3 HX OF BREAST MALIGNANCY [...] 786.50 UNSPECIFIED CHEST PAIN 10/28/2013 JHOAN MANAGER TRACK, RAUDEL S 786.50 UNSPECIFIED CHEST PAIN 10/28/2013 JHOAN MANAGER TRACK, RAUDEL S 786.50 UNSPECIFIED CHEST PAIN 10/28/2013 MICHAEL RODRIGUEZ DO K 786.50 UNSPECIFIED CHEST PAIN 10/28/2013 JHOAN PACE, RAUDEL S 786.50 UNSPECIFIED CHEST PAIN 10/28/2013 ERICA THAO MD 786.50 UNSPECIFIED CHEST PAIN 10/28/2013 JHOAN MANAGER TRACK, RAUEDL S 786.50 UNSPECIFIED CHEST PAIN 10/28/2013 VIVI MANAGER TRACK, LUZ 786.50 UNSPECIFIED CHEST PAIN 10/28/2013 VIVI MANAGER TRACK, LUZ 786.50 UNSPECIFIED CHEST PAIN 10/28/2013 MICHAEL RODRIGUEZ DO K 786.50 UNSPECIFIED CHEST PAIN 10/28/2013 VIVI MANAGER TRACK, LUZ 786.50 UNSPECIFIED CHEST PAIN 10/28/2013 JHOAN [...] DIABETES II UNCONTROLLED (UNCOMPLICATED) 12/16/2013 VIVI MANAGER TRACK, LUZ 250.02 DIABETES II UNCONTROLLED (UNCOMPLICATED) 12/16/2013 [...] MALIGNANT NEOPLASM OF BREAST 03/17/2014 JHOAN MANAGER TRACK, RAUDEL S 296.24 MAJOR DEPRESSIVE AFFECTIVE DISORDER [...] MALIGNANT NEOPLASM OF BREAST 03/17/2014 VIVI MANAGER TRACK, LUZ 296.24 MAJOR DEPRESSIVE AFFECTIVE DISORDER SINGLE EPISODE SEVERE DEGREE SPECIFIED WITH PSYCHOTIC BEHAVIOR 03/17/2014 VIVI MANAGER TRACK, LUZ V10.3 PERSONAL HISTORY OF MALIGNANT NEOPLASM OF BREAST 03/17/2014 VIVI MANAGER TRACK, LUZ 296.24 MAJOR DEPRESSIVE AFFECTIVE DISORDER SINGLE EPISODE SEVERE DEGREE SPECIFIED WITH PSYCHOTIC BEHAVIOR 03/17/2014 VIVI MANAGER TRACK, LUZ V10.3 PERSONAL HISTORY OF MALIGNANT NEOPLASM OF BREAST 03/17/2014 RODRIGUEZ DO MICHAEL K 296.24 MAJOR DEPRESSIVE AFFECTIVE DISORDER SINGLE EPISODE SEVERE DEGREE SPECIFIED WITH PSYCHOTIC BEHAVIOR 03/17/2014 RODRIGUEZ DO MICHAEL K V10.3 PERSONAL HISTORY OF MALIGNANT NEOPLASM OF BREAST 03/17/2014 VIVI MANAGER TRACK, LUZ 296.24 MAJOR DEPRESSIVE AFFECTIVE DISORDER SINGLE EPISODE SEVERE DEGREE SPECIFIED WITH PSYCHOTIC BEHAVIOR 03/17/2014 VIVI MANAGER TRACK, LUZ V10.3 PERSONAL HISTORY OF MALIGNANT NEOPLASM OF BREAST 03/17/2014 ISELA STAPLES APRNNDA S 296.24 MAJOR DEPRESSIVE AFFECTIVE DISORDER SINGLE EPISODE SEVERE DEGREE SPECIFIED WITH PSYCHOTIC BEHAVIOR 03/17/2014 ISELA STAPLES APRNNDA S V10.3 PERSONAL HISTORY OF MALIGNANT NEOPLASM OF BREAST 04/28/2014 ESMER STAPLES APRNA S 300.3 OBSESSIVE-COMPULSIVE DISORDERS 04/28/2014 ERICA THAO MD 300.3 OBSESSIVE-COMPULSIVE DISORDERS 04/28/2014 ESMER STAPLES APRNA S 300.3 OBSESSIVE-COMPULSIVE DISORDERS 04/28/2014 VIVI MANAGER TRACK, LUZ 300.3 OBSESSIVE-COMPULSIVE DISORDERS 04/28/2014 VIVI MANAGER TRACK, LUZ 300.3 OBSESSIVE-COMPULSIVE DISORDERS 04/28/2014 CARISSA RODRIGUEZ DOA K 300.3 OBSESSIVE-COMPULSIVE DISORDERS 04/28/2014 VIVI MANAGER TRACK, LUZ 300.3 OBSESSIVE-COMPULSIVE DISORDERS 04/28/2014 JHOAN MANAGER TRACK, RAUDEL S 300.3 OBSESSIVE-COMPULSIVE DISORDERS 05/13/2014 JHOAN MANAGER TRACK, RAUDEL S 294.11 DEMENTIA IN CONDITIONS CLASSIFIED ELSEWHERE WITH BEHAVIORAL DISTURBANCE 05/13/2014 VIVI MANAGER TRACK, LUZ 294.11 DEMENTIA IN CONDITIONS CLASSIFIED ELSEWHERE WITH BEHAVIORAL DISTURBANCE 05/13/2014 VIVI MANAGER TRACK, LUZ 294.11 DEMENTIA IN CONDITIONS CLASSIFIED ELSEWHERE WITH BEHAVIORAL DISTURBANCE 05/13/2014 CARISSA RODRIGUEZ DOA K 294.11 DEMENTIA IN CONDITIONS CLASSIFIED ELSEWHERE WITH BEHAVIORAL DISTURBANCE 05/13/2014 VIVI MANAGER TRACK LUZ 294.11 DEMENTIA IN CONDITIONS CLASSIFIED ELSEWHERE WITH BEHAVIORAL DISTURBANCE 05/13/2014 ISELA STAPLES APRNNDA S 294.11 DEMENTIA IN CONDITIONS CLASSIFIED ELSEWHERE WITH BEHAVIORAL DISTURBANCE 05/26/2014 ERICA THAO MD 338.29 CHRONIC PAIN 05/26/2014 ISELA STAPLES APRNNDA S 338.29 CHRONIC PAIN 05/26/2014 VIVI MANAGER TRACK, LUZ 338.29 CHRONIC PAIN 05/26/2014 VIVI PACE LUZ 338.29 CHRONIC PAIN 05/26/2014 MICHAEL RODRIGUEZ DO K 338.29 CHRONIC PAIN 05/26/2014 VIVI MANAGER TRACK, LUZ 338.29 CHRONIC PAIN 05/26/2014 JHOAN PACE [...] MICHAEL K Ot 250.62 11/01/2014 RODRIGUEZ DO, MICHEAL K Ot 272.4 11/01/2014 RODRIGUEZ DO, MICHAEL [...] MICHAEL K Ot 272.4 11/02/2014 RODRIGUEZ DO, MICHAEL K Ot 276.8 11/02/2014 RODRIGUEZ DO, MICHAEL [...] MICHAEL K Ot 244.9 11/03/2014 RODRIGUEZ DO, MICHAEL K Ot 250.62 11/03/2014 RODRIGUEZ DO, MICHAEL K Ot 272.4 11/03/2014 RODRIGUEZ DO, MICHAEL K Ot 276.8 11/03/2014 RODRIGUEZ DO, MICHAEL K Ot 294.20 11/03/2014 RODRIGUEZ DO, MCIHAEL K Ot 300.00 11/03/2014 RODRIGUEZ DO, MICHAEL [...] MICHAEL K Ot 414.01 CORONARY ATHEROSCLEROSIS OF [place] CORON 11/04/2014 RODRIGUEZ DO, MICHAEL K Ot [...] 06/03/2015 ROSA ELENA ALANIS MD, Ot Z79.4 HALFWAY (CURRENT) USE OF INSULIN 06/09/2015 KEVIN JACOBS MD Ot E11.9 TYPE 2 DIABETES MELLITUS WITHOUT COMPLIC 06/09/2015 KEVIN JACOBS MD Ot I10 ESSENTIAL (PRIMARY) HYPERTENSION 06/09/2015 KEVIN JACOBS MD Ot I44.0 ATRIOVENTRICULAR BLOCK, FIRST DEGREE 06/09/2015 KEVIN JACOBS MD Ot I51.7 CARDIOMEGALY 06/09/2015 KEVIN JACOBS MD Ot R07.9 CHEST PAIN, UNSPECIFIED 06/09/2015 KEVIN JACOBS MD Ot Z59.3 [facility] 06/09/2015 KEVIN JACOBS MD Ot Z79.4 HALFWAY (CURRENT) USE OF INSULIN 06/09/2015 KEVIN JACOBS MD Ot Z79.82 THERMAL CUTTER HAND (CURRENT) USE OF ASPIRIN 06/09/2015 KEVIN JACOBS MD Ot Z79.899 OTHER HALFWAY (CURRENT) DRUG THERAPY 06/10/2015 Ot 250.00 06/10/2015 [...] V72.63 PRE-PROCEDURAL LABORATORY EXAMINATION 06/27/2016 Ot V72.81 [id number] CARDIOVASCULAR 06/27/2016 BETH ALMODOVAR, SIMON Rahman Ot [...] E11.22 TYPE 2 DIABETES MELLITUS W DIABETIC DOWEL MACHINE OPERATOR 06/27/2016 CHAVA ALMODOVAR FACC, ALI FACP CCDS Ot E11.9 TYPE 2 DIABETES MELLITUS WITHOUT COMPLIC 06/27/2016 CHAVA ALMODOVAR FACC, ALI FACP CCDS Ot I10 ESSENTIAL (PRIMARY) HYPERTENSION 06/27/2016 CHAVA ALMODOVAR FACC, ALI FACP CCDS Ot I25.10 ATHSCL HEART DISEASE OF [place] CORONARY 06/29/2016 AMY MANCILLA MD Ot E03.9 [...] MD Ot I25.10 ATHSCL HEART DISEASE OF [place] CORONARY 06/29/2016 AMY MANCILLA MD, Ot I50.9 [...] RESUSCITATE 06/29/2016 AMY MANCILLA MD, Ot Z79.4 HALFWAY (CURRENT) USE OF INSULIN 06/29/2016 AMY MANCILLA [...] MD, Ot I25.10 ATHSCL HEART DISEASE OF [place] CORONARY 06/29/2016 AMY MANCILLA MD, Ot I50.9 [...] RESUSCITATE 06/29/2016 AMY MANCILLA MD Ot Z79.4 HALFWAY (CURRENT) USE OF INSULIN 06/29/2016 AMY MANCILLA [...] UNSPECIFIED 07/08/2016 WINSOME GALLAGHER APRN Ot Z79.4 THERMAL CUTTER HAND (CURRENT) USE OF INSULIN 07/08/2016 WINSOME GALLAGHER APRN Ot Z79.82 HALFWAY (CURRENT) USE OF ASPIRIN 07/08/2016 WINSOME GALLAGHER APRN Ot Z79.899 OTHER HALFWAY (CURRENT) DRUG THERAPY 07/08/2016 WINSOME GALLAGHER APRN Ot Z85.3 PERSONAL HISTORY OF MALIGNANT NEOPLASM O 07/08/2016 WINSOME GALLAGHER APRN Ot Z87.891 PERSONAL HISTORY OF NICOTINE DEPENDENCE 07/08/2016 WINSOME GALLAGHER APRN Ot Z90.12 ACQUIRED ABSENCE OF LEFT BREAST AND NIPP 07/10/2016 WINSOME GALLAGHER APRN Ot D64.9 ANEMIA, UNSPECIFIED 07/10/2016 WINSOME GALLAGHER APRN Ot E11.9 TYPE 2 DIABETES MELLITUS WITHOUT COMPLIC 07/10/2016 WINSOME GALLAGHER MANAGER TRACK Ot I12.9 HYPERTENSIVE CHRONIC KIDNEY DISEASE W ST 07/10/2016 WINSOME GALLAGHER MANAGER TRACK Ot I51.7 CARDIOMEGALY 07/10/2016 WINSOME GALLAGHER MANAGER TRACK Ot N18.9 CHRONIC KIDNEY DISEASE, UNSPECIFIED 07/10/2016 WINSOME GALLAGHER MANAGER TRACK Ot R07.9 CHEST PAIN, UNSPECIFIED 07/10/2016 WINSOME GALLAGHER MANAGER TRACK Ot Z79.4 THERMAL CUTTER HAND (CURRENT) USE OF INSULIN 07/10/2016 WINSOME GALLAGHER MANAGER TRACK Ot Z79.82 THERMAL CUTTER HAND (CURRENT) USE OF ASPIRIN 07/10/2016 WINSOME GALLAGHER APRN Ot Z79.899 OTHER THERMAL CUTTER HAND (CURRENT) DRUG THERAPY 07/10/2016 WINSOME GALLAGHER APRN Ot Z85.3 PERSONAL HISTORY OF MALIGNANT NEOPLASM O 07/10/2016 WINSOME GALLAGHER MANAGER TRACK Ot Z87.891 PERSONAL HISTORY OF NICOTINE DEPENDENCE [...] ERICA THAO MD Ot 276.8 HYPOPOTASSEMIA 12/19/2016 ERICA THAO MD Ot 276.8 HYPOPOTASSEMIA 12/19/2016 ERICA [...] E11.22 TYPE 2 DIABETES MELLITUS W DIABETIC DOWEL MACHINE OPERATOR 12/19/2016 CHAVA ALMODOVAR FACC, ALIA FACP CCDS Ot E11.9 TYPE 2 DIABETES MELLITUS WITHOUT COMPLIC 12/19/2016 CHAVA ALMODOVAR FACC, ALIA WILLS CCDS Ot I10 ESSENTIAL (PRIMARY) HYPERTENSION 12/19/2016 CHAVA ALMODOVAR FACC, ALIA PONCEP CCDS Ot I25.10 ATHSCL HEART DISEASE OF [place] CORONARY 01/09/2017 BAIMA, ELEAZAR L CATARACT LENS GENERATOR Ot I10 ESSENTIAL (PRIMARY) HYPERTENSION 01/09/2017 BAIMA, ELEAZAR L CATARACT LENS GENERATOR Ot I25.10 ATHSCL HEART DISEASE OF [place] CORONARY 01/09/2017 BAIMA, ELEAZAR L CATARACT LENS GENERATOR Ot I35.0 NONRHEUMATIC AORTIC (VALVE) STENOSIS 01/09/2017 BAIMA, ELEAZAR L CATARACT LENS GENERATOR Ot I51.7 CARDIOMEGALY 01/09/2017 BAIMA, ELEAZAR L CATARACT LENS GENERATOR Ot I65.23 OCCLUSION AND STENOSIS OF [place] 01/15/2017 BAIMA, ELEAZAR L CATARACT LENS GENERATOR Ot I10 ESSENTIAL (PRIMARY) HYPERTENSION 01/15/2017 BAIMA, ELEAZAR L CATARACT LENS GENERATOR Ot I25.10 ATHSCL HEART DISEASE OF [place] CORONARY 01/15/2017 BAIMA, ELEAZAR L CATARACT LENS GENERATOR Ot I35.0 NONRHEUMATIC AORTIC (VALVE) STENOSIS 01/15/2017 BAIMA, ELEAZAR L CATARACT LENS GENERATOR Ot I51.7 CARDIOMEGALY 01/15/2017 BAIMA, ELEAZAR L CATARACT LENS GENERATOR Ot I65.23 OCCLUSION AND STENOSIS OF [place] Procedures Code Description Performed By Performed On 38.91 ARTERIAL CATHETERIZATION 04/16/2012 51.23 LAPAROSCOPIC CHOLECYSTECTOMY 04/17/2012 10997 ROUTINE VENIPUNCTURE 08/07/2012 [id number] GFR CALC (RESULT ONLY) 08/07/2012 29020 LIPID PANEL 08/07 35351 CMP 08/07/2012 51251 ROUTINE VENIPUNCTURE 08/25/2012 [id number] GFR CALC (RESULT ONLY) 08/25/2012 43400 BMP 08/25/2012 25673 ROUTINE VENIPUNCTURE 10/31/2012 93616 A1C (IN-HOUSE) 97993 CMP 10/31/2012 6634244 GFR CALC (RESULT ONLY) 10/31/2012 77248 A1C (IN-HOUSE) 37417 ROUTINE VENIPUNCTURE 04/22/2013 31665 EKG, TRACING (IN-HOUSE) 04/22/2013 65725 CBC 04/22/2013 58605 CMP 04/22/2013 91292 LIPID PANEL 04/22 99810 MAGNESIUM 2012 3217931 GFR CALC (RESULT ONLY) 04/22/2013 25517 TSH 04/22/2013 Cardiolog Alia Mendez 04/23/2013 General S Simon Seay 04/23/2013 47932 ROUTINE VENIPUNCTURE 06/22/2013 74925 GASTRIC EMPTYING STUDY 06/23/2013 [id number] GFR CALC (RESULT ONLY) 06/23/2013 53301 CMP 06/23/2013 45.16 ESOPHAGOGASTRODUODENOSCOPY [EGD] W/CLOSE 07/14/2013 [address] ABDOMEN & PELVIS W/ & W/O [...] Status Pt. Type Provider Facility Loc./Unit Complaint [id number] 10/13/2014 07:50:00 10/13/2014 23: 59:59 C[facility] Outpatient RAUDEL STAPLES APRN [id number] 06/30/2014 08:12:00 06/30/2014 23: 59:59 [facility] Outpatient MICHAEL RODRIGEUZ DO [id number] 06/11/2014 11:30:00 06/11/2014 23: 59:59 CLS Outpatient LUZ TRINIDAD APRN [id number] 06/11/2014 11:30:00 06/11/2014 23: 59:59 CLS Outpatient LUZ TRINIDAD APRN [id number] 06/02/2014 08:48:00 06/02/2014 23: 59:59 CLS Outpatient RAUDEL STAPLES APRN [id number] 05/13/2014 13:20:00 05/13/2014 23: 59:59 CLS Outpatient LUZ TRINIDAD APRN [id number] 04/28/2014 07:50:00 04/28/2014 23: 59:59 CLS Outpatient RADUEL STAPLES APRN [id number] 03/17/2014 11:57:00 03/17/2014 23: 59:59 CLS Outpatient MICHAEL RODRIGUEZ DO [id number] 03/03/2014 07:33:00 03/03/2014 23: 59:59 CLS Outpatient RAUDEL STAPLES APRN [id number] 01/13/2014 07:53:00 01/13/2014 23: 59:59 CLS Outpatient RAUDEL STAPLES APRN [id number] 12/16/2013 07:56:00 12/16/2013 23: 59:59 CLS Outpatient ERICA THAO MD [id number] 11/24/2013 09:56:00 11/24/2013 23: 59:59 CLS Outpatient ZEKE ALMODOVAR ROSA ELENA Artemio [id number] 11/03/2013 15:29:00 11/03/2013 23: 59:59 CLS Outpatient ERICA THAO MD [id number] 10/14/2013 08:06:00 10/14/2013 23: 59:59 CLS Outpatient RAUDEL STAPLES APRN [id number] 10/02/2013 00:00:00 10/02/2013 23: 59:59 CLS Outpatient MICHAEL RODRIGUEZ DO [id number] 09/30/2013 09:39:00 09/30/2013 23: 59:59 CLS Outpatient ERICA THAO MD [id number] 09/16/2013 07:53:00 09/16/2013 23: 59:59 CLS Outpatient RAUDEL STAPLES APRN [id number] 08/21/2013 11:30:00 08/21/2013 23: 59:59 CLS Outpatient ERICA THAO MD [id number] 08/21/2013 11:28:00 08/21/2013 23: 59:59 CLS Outpatient ERICA THAO MD [id number] 08/04/2013 11:03:00 08/04/2013 23: 59:59 CLS Outpatient ERICA THAO MD [id number] 06/22/2013 15:11:00 06/22/2013 23: 59:59 CLS Outpatient ERICA THAO MD [id number] 06/02/2013 08:04:00 06/02/2013 23: 59:59 CLS Outpatient MICHAEL RODRIGUEZ DO [id number] 06/01/2013 08:37:00 06/01/2013 23: 59:59 CLS Outpatient ERICA THAO MD [id number] 04/22/2013 09:54:00 04/22/2013 23: 59:59 CLS Outpatient ERICA THAO MD [id number] 10/31/2012 08:15:00 10/31/2012 23: 59:59 CLS Outpatient ERICA THAO MD [id number] 08/25/2012 08:21:00 08/25/2012 23: 59:59 CLS Outpatient ERICA THAO MD [id number] 08/07/2012 08:47:00 08/07/2012 23: 59:59 CLS Outpatient ERICA THAO MD [id number] 05/14/2012 10:18:00 05/14/2012 23: 59:59 [place] [id number] 05/14/2012 10:18:00 05/14/2012 23: 59:59 CLS Outpatient MICHAEL RODRIGUEZ DO
== END 2017-02-04 19:00 | DRG 291 ==
LOC: EDUNIT# 07:37 → ER 07:38 → ICU 10:00
PROVIDERS: ADMIT Family Medicine; ATTEND Family Medicine
DX: E11.43 Type 2 diabetes mellitus with diabetic autonomic (poly)neuropathy; E78.00 Pure hypercholesterolemia, unspecified; N18.4 Chronic kidney disease, stage 4 (severe); Z66 Do not resuscitate; Z87.891 Personal history of nicotine dependence; H54.7 Unspecified visual loss; N17.9 Acute kidney failure, unspecified; F50.9 Eating disorder, unspecified; Z90.710 Acquired absence of both cervix and uterus; Z85.3 Personal history of malignant neoplasm of breast; K21.9 Gastro-esophageal reflux disease without esophagitis; F32.9 Major depressive disorder, single episode, unspecified; F01.51 Vascular dementia, unspecified severity, with behavioral disturbance; Z79.4 Long term (current) use of insulin; D63.8 Anemia in other chronic diseases classified elsewhere; I50.33 Acute on chronic diastolic (congestive) heart failure; Z90.11 Acquired absence of right breast and nipple; E66.9 Obesity, unspecified; K31.84 Gastroparesis; I25.10 Atherosclerotic heart disease of native coronary artery without angina pectoris; I13.0 Hypertensive heart and chronic kidney disease with heart failure and stage 1 through stage 4 chronic kidney disease, or unspecified chronic kidney disease; E11.22 Type 2 diabetes mellitus with diabetic chronic kidney disease; J45.909 Unspecified asthma, uncomplicated; F41.9 Anxiety disorder, unspecified; Z85.41 Personal history of malignant neoplasm of cervix uteri; E11.649 Type 2 diabetes mellitus with hypoglycemia without coma; Z68.39 Body mass index [BMI] 39.0-39.9, adult; M19.91 Primary osteoarthritis, unspecified site
CPT/HCPCS: 36415; 71010; 80048; 80053; 81000; 82962; 83735; 83880; 84100; 84484; 85025; 85027; 86141; 86850; 86900; 86901; 86920; 93005; 93041; 94640; 94660; 94760; 96374